=== PATIENT | female | born 1950 | race Caucasian/White ===

== ENCOUNTER 2018-04-23 15:35 | Inpatient (IN) | payer MEDICARE, OTHER ==
[~2018-04-23] VITALS: Ht 172.7 cm; Wt 108.0 kg
[2018-04-23 16:28] LABS: BASOPHILS 0.4 % (0-2); EOSINOPHILS 4.1 % (0-7); HEMATOCRIT 35.8 % (36.0-48.0); HEMOGLOBIN 11.7 g/dL (12-16); IMMATURE GRANULOCYTES 0.3 % (0-5); LYMPHOCYTES 19.1 % (15-50); MCH 29.6 pg (26.0-34.0); MCHC 32.7 g/dL (31.0-37.0); MCV 90.6 fL (80.0-100.0); MONOCYTES 16.4 % (2-11); NEUTROPHILS 59.7 % (40-80); PLATELET COUNT 188 10x3/uL (130-400); RBC 3.95 10x6/uL (4.00-5.40); RDW 18.3 % (11.5-14.5); WBC 7.6 10x3/uL (4.8-10.8)
[2018-04-23 16:37] LABS: APTT 24.3 SECONDS (22.8-39.4); INR 1.29 (0.85-1.17); PROTIME 15.5 SECONDS (11.6-15.0)
[2018-04-23 17:22] LABS: ALBUMIN 2.3 g/dL (3.4-5.0); ALKALINE PHOSPHATASE 178 U/L (46-116); ALT (SGPT) 288 U/L (10-68); BILIRUBIN - TOTAL 0.87 mg/dL (0.2-1.3); CALC OSMOLALITY 289 mosm/kg (275-300); CARBON DIOXIDE 20.9 mmol/L (21.0-32.0); CHLORIDE - SERUM 96 mmol/L (98-107); CKMB 1.2 U/L (0.0-3.6); GLUCOSE 237 mg/dL (74-106); POTASSIUM - SERUM 4.9 mmol/L (3.5-5.1); PROTEIN - SERUM 5.6 g/dL (6.4-8.2); SODIUM 129 mmol/L (136-145); TROPONIN-I 0.052 ng/mL (0.000-0.060); UREA NITROGEN 78 mg/dL (7-18)
[2018-04-23 17:52] LABS: CREATINE KINASE 45 UL (21-215); CREATININE - SERUM 5.1 mg/dL (0.6-1.3); eGFR NON AFRICAN AMERICAN 9 mL/min (90-120)
--- NOTE | 2018-04-23 18:01 | NUR ---
PT STATES MAKES LITTLE TO NO URINE ET IS UNABLE TO PROVIDE A URINE SAMPLE AT THIS TIME.
[2018-04-23 18:23] LABS: PRO BNP 43014 pg/mL (0-125)
[2018-04-23] MEDS ORDERED: TYLENOL W/CODEI1 TAB PO (18:51)
[2018-04-23] MEDS ORDERED: LOW DOSE ASPIRI81 M1 PO (18:51)
[2018-04-23] MEDS ORDERED: CITRACAL + D E1 EACH PO (18:52)
[2018-04-23] MEDS ORDERED: TENORMIN25 MG PO (18:52)
[2018-04-23] MEDS ORDERED: CATAPRES0.2 MG PO (18:52)
[2018-04-23] MEDS ORDERED: LEVOXYL200 MCG PO (18:53)
[2018-04-23] MEDS ORDERED: FUROSEMIDE40 MG PO (18:53)
[2018-04-23] MEDS ORDERED: NORCO 10-325 TA1 TAB PO (18:53)
[2018-04-23] MEDS ORDERED: NITROQUICK0.4 MG SL (18:54)
[2018-04-23] MEDS ORDERED: PROZAC20 MG PO (18:54)
[2018-04-23] MEDS ORDERED: ATIVAN1 MG PO (18:54)
[2018-04-23] MEDS ORDERED: TOUJEO SOL300 UNIT/1 SC ×2 (18:55→21:56)
--- NOTE | 2018-04-23 19:30 | NUR ---
PLACED 16 FR MCCARTHY CATH. PT TOLERATED WELL. INSTANT RETURN OF 150CC URINE NAYELI IN COLOR WITH SEDIMENTS NOTED.
--- NOTE | 2018-04-23 19:38 | NUR ---
URINE SAMPLE SENT TO LAB AFTER MCCARTHY PLACED. NOTIFIED CHARGE NURSE THAT PT WAS JSUT TREATED WITH VRE IN URINE AT A [facility]. PRECAUTIONS IN PLACE.
[2018-04-23 19:48] LABS: APPEARANCE CLEAR (CLEAR); BILIRUBIN NEGATIVE (NEGATIVE); COLOR YELLOW (YELLOW); GLUCOSE NEGATIVE (NEGATIVE); KETONE NEGATIVE (NEGATIVE); NITRITE NEGATIVE (NEGATIVE); PROTEIN TRACE mg/dL (NEGATIVE); UROBILINOGEN NORMAL (NORMAL)
--- NOTE | 2018-04-23 21:00 | NUR ---
PT RESTING WITH FAMILY AT BEDSIDE. NO DISTRESS NOTED. DENIES PAIN OR NEEDS AT THIS TIME. BED LOW LOCKED POSITION, SIDE RAILS UP TIMES TWO, CALL LIGHT WITHIN REACH. NOTIFIED ELVIA GAMBINO ON MED II ABOUT F/C AND PT HAVING VRE IN URINE AND WAS TREATED AT [facility].
[2018-04-23] MEDS ORDERED: CALCIUM 600 +1 EAC3 PO (21:53)
[2018-04-23] MEDS ORDERED: VITAMIN D5000 UNIT PO (21:57)
[2018-04-23 23:26] VITALS: BP 108/70; BMI 44.5
[2018-04-24 00:03] VITALS: BP 108/70
[2018-04-24 04:17] VITALS: BP 101/65
[2018-04-24 06:26] LABS: BASOPHILS 0.4 % (0-2); HEMATOCRIT 35.1 % (36.0-48.0); HEMOGLOBIN 11.5 g/dL (12-16); LYMPHOCYTES 18.6 % (15-50); MCH 29.1 pg (26.0-34.0); MCHC 32.8 g/dL (31.0-37.0); MCV 88.9 fL (80.0-100.0); MONOCYTES 19.9 % (2-11); NEUTROPHILS 54.1 % (40-80); PLATELET COUNT 166 10x3/uL (130-400); RBC 3.95 10x6/uL (4.00-5.40); RDW 18.1 % (11.5-14.5); WBC 8.2 10x3/uL (4.8-10.8)
[2018-04-24 07:10] LABS: ALBUMIN 2.3 g/dL (3.4-5.0); ALKALINE PHOSPHATASE 172 U/L (46-116); ALT (SGPT) 261 U/L (10-68); CALC OSMOLALITY 299 mosm/kg (275-300); CALCIUM 8.1 mg/dL (8.5-10.1); CHLORIDE - SERUM 101 mmol/L (98-107); CKMB 1.1 U/L (0.0-3.6); CREATINE KINASE 38 UL (21-215); CREATININE - SERUM 5.1 mg/dL (0.6-1.3); GLUCOSE 209 mg/dL (74-106); POTASSIUM - SERUM 4.9 mmol/L (3.5-5.1); PROTEIN - SERUM 5.5 g/dL (6.4-8.2); SODIUM 135 mmol/L (136-145); UREA NITROGEN 81 mg/dL (7-18); eGFR NON AFRICAN AMERICAN 9 mL/min (90-120)
--- NOTE | 2018-04-24 07:40 | NUR ---
ASSESSMENT DONE. DENIES NEEDS.
[2018-04-24 08:25] VITALS: BP 109/67
[2018-04-24] MEDS ORDERED: SIMETHICON40 MG/0.6 PO (09:49)
[2018-04-24 10:42] VITALS: BMI 44.4
--- NOTE | 2018-04-24 11:04 | NUR ---
RESTING QUIETLY NAD NOTED
[2018-04-24 12:16] VITALS: Ht 172.7 cm; Wt 108.0 kg
[2018-04-24 12:41] VITALS: BP 103/71
[2018-04-24 14:15] LABS: % SATURATION 13 % (15-55); IRON 31 ug/dl (35-150); TOTAL IRON BIND CAPACITY 235 ug/dl (260-445); UNSAT IRON BIND CAPACITY 204 ug/dl (150-375)
--- NOTE | 2018-04-24 15:04 | NUR ---
RATIONALE FOR SCD'S EXPLAINED; REFUSED SCD'S
[2018-04-24 15:15] LABS: THYROID STIMULATING HORMONE 0.43 uIU/mL (0.36-3.74)
[2018-04-24 15:48] VITALS: BP 122/71
--- NOTE | 2018-04-24 18:05 | NUR ---
WITHOUT CHANGES OR DISTRESS NOTED AT THIS TIME.
[2018-04-24 21:41] VITALS: BP 96/54
[2018-04-25 01:23] VITALS: BP 105/60
[2018-04-25 05:44] VITALS: BP 99/52
--- NOTE | 2018-04-25 06:26 | NUR ---
REC'D CHGE. OF SHIFT IN BED EYES CLOSED RESP. DEEP AND EVEN.CONTACT ISOLATION REMAINS IN PROGRESS.WILL CONTINUE TO MONITOR FOR ANY CHGES AND FOLLOW CURRENT PLAN OF CARE.
--- NOTE | 2018-04-25 07:00 | NUR ---
MORNING ASSESSMENT COMPLETE. SEE ASSESSMENT FLOWSHEET FOR FURTHER DETAILS. PT LYING IN BED- AAO X2 TO PERSON AND TIME OF DAY. CONFUSED TO PLACE. L AC SL- C/D/I; PATENT. HEART: S1 AND S2 HEARD AT AORTIC, PULMONICS, ERBS, TRICUSPID, AND MITRAL SITES- REG RHYTHM. BILAT RADIAL AND PEDAL PULSES PALP AND STRONG. LUNGS: CTA IN ALL LUNG ODELL. ABD: BS ACTIVE X4. F/C IN PLACE. DENIES NEEDS A THIS TIME. CL IN REACH. SIDE RAILS UP X3 FOR PATIENT SAFETY
[2018-04-25 07:27] LABS: FOLATE (FOLIC ACID) - SERUM 10.1 ng/mL (>3.0)
[2018-04-25 08:37] VITALS: BP 112/53
[2018-04-25 09:24] LABS: BASOPHILS 0.2 % (0-2); HEMATOCRIT 36.5 % (36.0-48.0); HEMOGLOBIN 12.2 g/dL (12-16); IMMATURE GRANULOCYTES 0.2 % (0-5); LYMPHOCYTES 16.2 % (15-50); MCH 29.3 pg (26.0-34.0); MCHC 33.4 g/dL (31.0-37.0); MCV 87.5 fL (80.0-100.0); MONOCYTES 16.7 % (2-11); NEUTROPHILS 64.7 % (40-80); PLATELET COUNT 169 10x3/uL (130-400); RBC 4.17 10x6/uL (4.00-5.40); RDW 18.1 % (11.5-14.5); WBC 9.6 10x3/uL (4.8-10.8)
[2018-04-25 09:45] LABS: ALBUMIN 2.3 g/dL (3.4-5.0); ANION GAP 16.9 mmol/L (8-16); BILIRUBIN - TOTAL 1.17 mg/dL (0.2-1.3); CALCIUM 8.1 mg/dL (8.5-10.1); CARBON DIOXIDE 23.6 mmol/L (21.0-32.0); CREATININE - SERUM 4.7 mg/dL (0.6-1.3); POTASSIUM - SERUM 4.5 mmol/L (3.5-5.1); PROTEIN - SERUM 5.6 g/dL (6.4-8.2)
[2018-04-25 11:54] VITALS: BP 176/66
[2018-04-25 16:43] VITALS: BP 103/69
--- NOTE | 2018-04-25 18:52 | NUR ---
PIV INFILTRATED. RESITED TO L AC- C/D/I; PATENT. FLUSHES WELL. PT TOLERATED WELL.
[2018-04-25 20:00] VITALS: BP 126/74
--- NOTE | 2018-04-25 20:00 | NUR ---
PT IN BED, MCCARTHY DRAINING YELLOW URINE. CONFUSED AND DISORIENTED. PT STATES "CAN I HAVE MY PAIN PILL?". BACK TO ROOM TO ADMINISTER PRESCRIBED ANALGESIC AND PT STATES SHE WILL TAKE IT LATER AND NOT NOW. RETURNED NARCOTIC TO PYXIS. WILL FOLLOW UP FOR PAIN, PT DENIES ANY NEEDS AT THE MOMENT. SR UP X2, CL IN REACH. WILL CONTINUE POC.
[2018-04-26] VITALS: BP 117/67
[2018-04-26 04:00] VITALS: BP 113/70
[2018-04-26 07:00] VITALS: BP 146/69
--- NOTE | 2018-04-26 07:52 | NUR ---
PT ASLEEP, DID NOT WAKE I ENTERED. DID NOT DISTURB AT THIS TIME. CL IN REACH.
[2018-04-26 08:30] LABS: BASOPHILS 0.1 % (0-2); EOSINOPHILS 0.6 % (0-7); HEMATOCRIT 35.8 % (36.0-48.0); IMMATURE GRANULOCYTES 0.1 % (0-5); LYMPHOCYTES 9.9 % (15-50); MCH 29.6 pg (26.0-34.0); MCHC 33.5 g/dL (31.0-37.0); MCV 88.4 fL (80.0-100.0); MONOCYTES 13.2 % (2-11); NEUTROPHILS 76.1 % (40-80); PLATELET COUNT 197 10x3/uL (130-400); RBC 4.05 10x6/uL (4.00-5.40); RDW 18.5 % (11.5-14.5); WBC 11.4 10x3/uL (4.8-10.8)
[2018-04-26 08:50] LABS: ALBUMIN 2.1 g/dL (3.4-5.0); ANION GAP 16.6 mmol/L (8-16); BILIRUBIN - TOTAL 1.32 mg/dL (0.2-1.3); CALCIUM 8.3 mg/dL (8.5-10.1); CARBON DIOXIDE 23.3 mmol/L (21.0-32.0); CREATININE - SERUM 4.3 mg/dL (0.6-1.3); POTASSIUM - SERUM 3.9 mmol/L (3.5-5.1); PROTEIN - SERUM 5.8 g/dL (6.4-8.2)
--- NOTE | 2018-04-26 10:31 | NUR ---
RESTS IN ISOLATION ROOM. CALL LIGHT IN REACH. WILL MONITOR NEEDS.
--- NOTE | 2018-04-26 10:46 | NUR ---
PT RUNNING 130 VTACH. NOT DIAPHERETIC. REPORTS FEELING DIZZY. HAS PACEMAKER. OBTAINING VITALS NOW.
--- NOTE | 2018-04-26 10:57 | NUR ---
DR. ALVA CONTACTED. STATES HE BELIEVES IT PACEMAKER INDUCED TACHYCARDIA BUT THAT HE WILL COME AND CHECK IT OUT. PT HAS NO SIGNIFICANT CHANGES IN CONDITION
[2018-04-26 11:00] VITALS: BP 90/60
[2018-04-26 15:00] VITALS: BP 140/82
--- NOTE | 2018-04-26 20:17 | NUR ---
INITIAL ROUNDS COMPLETED AT 191 HRS. PT RESTING WITH EYES CLOSED. RESP EVEN AND REGULAR. ASSESSMENT COMPLETED AT [address] WITH 1ST DEGREE AV BLOCK HR 10. IV TO LAC SL. LUNGS DIMINISHED IN BASES BILAT. LARGE FADING BRUISE NOTED TO L HIP. BRUISES NOTED TO BILAT ARMS. MCCARTHY DRAINING YELLOW URINE. 2+ PEDAL EDEMA NOTED. PTON CONTACT ISOLATION FOR VRE IN URINE. WILL CONTINUE TO MONITOR. SR UP X2, CALL LIGHT WITHIN REACH.
[2018-04-26 20:25] VITALS: BP 118/81
--- NOTE | 2018-04-26 23:00 | NUR ---
PM FSBS 162. NO INSULIN GIVEN PT NOT EATING. PT CURRENTLY RESTING WITH EYES CLOSED. RESP EVEN AND REGULAR. SR UP X2, CALL LIGHT WITHIN REACH.
--- NOTE | 2018-04-27 00:09 | NUR ---
PT RESTING WITH EYES CLOSED. RESP EVEN AND REGULAR. SR UP X2, CALL LIGHT WITHIN REACH.
[2018-04-27 00:30] VITALS: BP 119/73
--- NOTE | 2018-04-27 01:59 | NUR ---
PT AWAKE; DENIES ANY DISCOMFORT. WILL CONTINUE TO MONITOR.
--- NOTE | 2018-04-27 04:19 | NUR ---
ICE WTER GIVEN PER REQUEST. CALL LIGHT WITHIN REACH.
[2018-04-27 04:45] VITALS: BP 126/77
--- NOTE | 2018-04-27 06:29 | NUR ---
VSS THROUGHOUT NIGHT. ST/PACED PER CM HR IN LOW 100'S. AM FSBS 192. 4 UNITS REG INSULIN GIVEN SUB-Q TO UPPER L ARM PER S/S. 240CC OF APPLE JUICE ALSO GIVEN. NEEDS MET; WILL CONTINUE TO MONITOR.
[2018-04-27 07:30] LABS: BASOPHILS 0.2 % (0-2); EOSINOPHILS 0.7 % (0-7); HEMATOCRIT 38.5 % (36.0-48.0); HEMOGLOBIN 12.8 g/dL (12-16); IMMATURE GRANULOCYTES 0.2 % (0-5); LYMPHOCYTES 13.1 % (15-50); MCH 29.5 pg (26.0-34.0); MCHC 33.2 g/dL (31.0-37.0); MCV 88.7 fL (80.0-100.0); MONOCYTES 15.1 % (2-11); NEUTROPHILS 70.7 % (40-80); RBC 4.34 10x6/uL (4.00-5.40); RDW 18.4 % (11.5-14.5); WBC 12.5 10x3/uL (4.8-10.8)
[2018-04-27 07:33] LABS: PLATELET COUNT 246 10x3/uL (130-400)
--- NOTE | 2018-04-27 07:38 | NUR ---
PT AWAKE, HAS BEEN CALLING TO THE PACKING MACHINE CAN FEEDER FOR HELP INSTEAD OF USING HER CL INSTRUCTED. WENT IN AND HELPED ADJUST HER. NO OTHER C/O OR CONCERNS, BUT STATES SHE DOESN'T PLAN ON EATING BREAKFAST. PT DID NOT EAT AT ALL YESTERDAY EITHER, TRIED TO ENCOURAGE HER TO EAT. WILL CHECK IN AGAIN AT BREAKFAST/MEDICATION TIME AND TRY TO ENCOURAGE AGAIN.
[2018-04-27 07:52] LABS: ALBUMIN 2.2 g/dL (3.4-5.0); ANION GAP 20.6 mmol/L (8-16); BILIRUBIN - TOTAL 1.66 mg/dL (0.2-1.3); CALCIUM 8.4 mg/dL (8.5-10.1); CARBON DIOXIDE 19.8 mmol/L (21.0-32.0); CREATININE - SERUM 4.2 mg/dL (0.6-1.3); POTASSIUM - SERUM 4.4 mmol/L (3.5-5.1); PROTEIN - SERUM 6.2 g/dL (6.4-8.2)
[2018-04-27 08:25] VITALS: BP 140/88
[2018-04-27 11:32] VITALS: BP 143/76
--- NOTE | 2018-04-27 11:34 | NUR ---
RESTS IN ISOLATION ROOM. CALL LIGHT IN REACH. WILL MONITOR NEEDS.
--- NOTE | 2018-04-27 12:54 | NUR ---
PT NPO AFTER MIDNIGHT FOR GALLBLADDER SCAN
--- NOTE | 2018-04-27 12:57 | NUR ---
PT DOES NOTHAVE GALLBLADDER
[2018-04-27 13:40] LABS: AMYLASE - SERUM 24 U/L (25-115); LIPASE 166 U/L (73-393)
[2018-04-27 15:54] VITALS: BP 122/20
[2018-04-27 21:20] VITALS: BP 109/67
--- NOTE | 2018-04-27 23:57 | NUR ---
INITIAL ROUNDS COMPLETED AT 1910HRS. PT STATED SHE HAD SLIGHT SOB. PT REPOSITIONED IN BED. PT THEN STATED SHE COULD BREATHE BETTER. ASSESSMENT COMPELTD AT 2039 HRS. FAMILY AT BEDSIDE. O2 SAT 93%. O2 2LNC PLACED PER PT REQUEST. LUNGS DIMINISHED IN BASES BILAT. SCATTERED RHONCHI NOTED TO UPPER LOBES WHICH CLEARED WITH COUGH. BRUISES TO BILAT ARMS AND L HIP. SMALL SORE NOTED TO TOP OF R FOOT. MCCARTHY DRAINING YELLOW URINE. EXPLAINED TO PT AND FAMILY SHE DID NOT MEET CRITERIA FOR MCCARTHY. BOTH PT AND FAMILY REFUSED TO HAVE MCCARTHY REMOVED. PM FSBS 260. 10 UNITS REG INSULIN GIVEN SUB-Q TO UPPER R ARM. PM SNACK SERVED. PT CURRENTLY RESTING WITH EYES CLOSED. RESP EVEN AND REGULAR. SR UP X2,CALL LIGHT WITHIN REACH.
[2018-04-28 00:57] VITALS: BP 118/72
--- NOTE | 2018-04-28 01:51 | NUR ---
PT AWAKE, DENIES ANY PAIN OR NEEDS. CALL LIGHT WITHIN REACH.
--- NOTE | 2018-04-28 04:47 | NUR ---
PT INCONTINETNOF STOOL. INCONTINETN CARE DONE. REDDENED AEA NOTED TO COCCYX AREA APPROX 4CM X1 CM. REPOSITIONED IN BED FOR COMFORT. CALL LIGHT WITHIN REACH.
[2018-04-28 05:53] VITALS: BP 142/76
[2018-04-28 06:16] LABS: ALBUMIN 2.1 g/dL (3.4-5.0); ANION GAP 16.5 mmol/L (8-16); BILIRUBIN - TOTAL 1.33 mg/dL (0.2-1.3); CALCIUM 8.3 mg/dL (8.5-10.1); CARBON DIOXIDE 24.4 mmol/L (21.0-32.0); CREATININE - SERUM 4.1 mg/dL (0.6-1.3); POTASSIUM - SERUM 3.9 mmol/L (3.5-5.1)
[2018-04-28 07:18] LABS: BASOPHILS 0.2 % (0-2); EOSINOPHILS 3.6 % (0-7); HEMATOCRIT 37.5 % (36.0-48.0); HEMOGLOBIN 12.6 g/dL (12-16); IMMATURE GRANULOCYTES 0.2 % (0-5); LYMPHOCYTES 15.9 % (15-50); MCH 28.8 pg (26.0-34.0); MCHC 33.6 g/dL (31.0-37.0); MONOCYTES 16.2 % (2-11); NEUTROPHILS 63.9 % (40-80); PLATELET COUNT 213 10x3/uL (130-400); RBC 4.38 10x6/uL (4.00-5.40); RDW 18.2 % (11.5-14.5); WBC 11.6 10x3/uL (4.8-10.8)
--- NOTE | 2018-04-28 07:30 | NUR ---
VSS THROUGHOUT NIGHT. ST/PACED PER CM. PT DENIED ANY DISCOMFORT. NEEDS MET; WILL CONTINUE TO MONITOR.
[2018-04-28 07:32] LABS: MCV 85.6 fL (80.0-100.0)
--- NOTE | 2018-04-28 07:39 | NUR ---
REPORT RECEIVED. WILL CONTINUE WITH POC. PT CURRENTLY LYING SEMI FOWLERS. CALL LIGHT W/I REACH. PT WAS RESTING UPON ENTERING THE ROOM. PT IS AAO AND BEDFAST. RR EVEN AND UNLABORED ON 2L 02. L.AC PIV IS SALINE LOCKED. PT DENIES ANY NEEDS AT THIS TIME. WILL CTM.
[2018-04-28 09:20] VITALS: BP 110/80
--- NOTE | 2018-04-28 11:26 | NUR ---
RESTING QUIETLY NAD NOTED
--- NOTE | 2018-04-28 18:23 | NUR ---
CALLED PHARMACY TO NOTIFY THE NEED OF BUMEX DRIP. WILL CALL GROOMING ASSISTANT.
--- NOTE | 2018-04-28 18:57 | NUR ---
STILL HAVE NOT RECEIVED BUMEX DRIP. CALLED PHARMACY AGAIN @1900 TO NOTIFY. WILL CTM.
--- NOTE | 2018-04-28 19:30 | NUR ---
RECEIVED REPORT, WILL ASSUME CARE OF PT, DENIES ANY NEEDS AT THIS TIME, BED IS LOW, SRX2, CALL LIGHT IN [facility], WILL CONTINUE PLAN OF CARE
[2018-04-28 20:56] VITALS: BP 87/66
--- NOTE | 2018-04-28 21:50 | NUR ---
[id number] 8 UNITS OF HUMULIN, WILL CONTINUE PLAN OF CARE
--- NOTE | 2018-04-28 23:27 | NUR ---
BID ANALYST AT BEDSIDE TO OBTAIN VITALS, CALL LIGHT IN REACH. WILL CONTINUE WITH PLAN OF CARE.
[2018-04-29 02:02] VITALS: BP 120/69
--- NOTE | 2018-04-29 04:39 | NUR ---
PT HAD SMALL BM- LINEN CHANGE
[2018-04-29 06:09] VITALS: BP 140/67
--- NOTE | 2018-04-29 06:17 | NUR ---
[id number] COVERAGE NEEDED
[2018-04-29 06:42] LABS: BASOPHILS 0.3 % (0-2); EOSINOPHILS 4.3 % (0-7); HEMATOCRIT 36.9 % (36.0-48.0); HEMOGLOBIN 12.6 g/dL (12-16); IMMATURE GRANULOCYTES 0.2 % (0-5); LYMPHOCYTES 12.4 % (15-50); MCH 29.2 pg (26.0-34.0); MCHC 34.1 g/dL (31.0-37.0); MCV 85.4 fL (80.0-100.0); MONOCYTES 15.9 % (2-11); NEUTROPHILS 66.9 % (40-80); PLATELET COUNT 221 10x3/uL (130-400); RBC 4.32 10x6/uL (4.00-5.40); RDW 18.2 % (11.5-14.5); WBC 11.4 10x3/uL (4.8-10.8)
[2018-04-29 06:50] LABS: ANION GAP 16.1 mmol/L (8-16); BILIRUBIN - TOTAL 1.34 mg/dL (0.2-1.3); CALCIUM 8.1 mg/dL (8.5-10.1); CARBON DIOXIDE 25.8 mmol/L (21.0-32.0); CREATININE - SERUM 4.3 mg/dL (0.6-1.3); POTASSIUM - SERUM 3.9 mmol/L (3.5-5.1); PROTEIN - SERUM 5.7 g/dL (6.4-8.2)
--- NOTE | 2018-04-29 07:39 | NUR ---
REPORT RECEIVED. WILL CONTINUE WITH POC. PT CURRENTLY LYING SEMI FOWLERS. CALL LIGHT W/I REACH. RR EVEN AND UNLABORED ON 2L 02. PT IS AAO AND BEDFAST. BUMEX INFUSING @10ML/HR VIA L.AC PIV. PT DENIES ANY NEEDS AT THIS TIME. WILL CTM.
[2018-04-29 09:34] VITALS: BP 155/68
--- NOTE | 2018-04-29 10:20 | NUR ---
PREVIOUS PIV INFILTRATED. STOPPED INFUSION. STARTED NEW PIV IN THE RIGHT WRIST. 20GA X1 ATTEMPT. RESTARTED BUMEX DRIP. PT TOLERATED WELL. WILL CTM.
--- NOTE | 2018-04-29 10:47 | NUR ---
RESTING QUIETLY NAD NOTED
[2018-04-29 12:37] LABS: CREATININE - URINE 109.3 mg/dL (30-125); PROTEIN - URINE 52.4 mg/dL (0.0-11.9)
[2018-04-29 13:11] VITALS: BP 120/74
[2018-04-29 17:38] VITALS: BP 121/71
--- NOTE | 2018-04-29 18:19 | NUR ---
PT CURRENTLY GETTING A BEDBATH. CALL LIGHT W/I REACH. WILL APPLY NEW LINENS AND GOWN. BUMEX INFUSING @10ML/HR VIA R.WRIST PIV. RR EVEN AND UNLABORED ON . PT DENIES ANY NEEDS AT THIS TIME. WILL PASS REPORT AND CONTINUE WITH POC.
--- NOTE | 2018-04-29 19:05 | NUR ---
AROUSES TO VOICE. BED LOW AND CALL LIGHT IN REACH. VOICES UNDERSTANDING TO ALL QUESTIONS...ALERT AND ORIENTEDX3..SRX2 O2 AT 1 INCREASED TO ORDER OF 2LNC..SKIN WARM AND DRY LCTA PEDAL PULSES INTACT BOWEL SOUNDS X4..WILL CONTINUE TO OBSERVE CONTACT ISOLATION
[2018-04-29 20:40] VITALS: BP 100/57
--- NOTE | 2018-04-30 00:42 | NUR ---
BUMEX CONTINUED ...BED LOW SRX2 CALL LIGHT IN REACH..RESTING WITH EYES CLOSED
[2018-04-30 00:56] VITALS: BP 142/60
--- NOTE | 2018-04-30 02:52 | NUR ---
CO OF ABD PAIN...STATES PAIN IS CHRONIC TIMES SEVERAL DAYS..PRN GIVEN
--- NOTE | 2018-04-30 04:24 | NUR ---
STILL CO ABD PAIN WITH LITTLE RELIEF FROM HYDRO....SKIN WARM AND DRY
--- NOTE | 2018-04-30 04:34 | NUR ---
PT ASLEEP. NO S/S OF DISTRESS. BEDLOW AND CALL LIGHT IN REACH. WILL CPOC
[2018-04-30 06:09] VITALS: BP 118/60
--- NOTE | 2018-04-30 07:30 | NUR ---
REPORT RECEIVED. WILL CONTINUE WITH POC. PT CURRENTLY LYING SEMI FOWLERS. CALL LIGHT W/I REACH. PT IS RESTING AT THE MOMENT. RR EVEN AND UNLABORED ON 2.5L 02. BUMEX INFUSING @10ML/HR VIA R.WRIST PIV. PT DENIES ANY NEEDS. WILL CTM.
[2018-04-30 07:40] LABS: HEMATOCRIT 35.7 % (36.0-48.0); HEMOGLOBIN 12.1 g/dL (12-16); MCH 29.8 pg (26.0-34.0); MCHC 33.9 g/dL (31.0-37.0); PLATELET COUNT 204 10x3/uL (130-400); RBC 4.06 10x6/uL (4.00-5.40); RDW 18.6 % (11.5-14.5); WBC 14.2 10x3/uL (4.8-10.8)
[2018-04-30 07:45] LABS: MCV 87.9 fL (80.0-100.0)
[2018-04-30 07:58] LABS: ALBUMIN 2.2 g/dL (3.4-5.0); BILIRUBIN - TOTAL 2.15 mg/dL (0.2-1.3); CALCIUM 7.9 mg/dL (8.5-10.1); CARBON DIOXIDE 24.4 mmol/L (21.0-32.0); CREATININE - SERUM 4.3 mg/dL (0.6-1.3); MAGNESIUM - SERUM 2.3 mg/dL (1.8-2.4); PROTEIN - SERUM 5.4 g/dL (6.4-8.2)
[2018-04-30 08:03] LABS: POTASSIUM - SERUM 4.4 mmol/L (3.5-5.1)
[2018-04-30 08:06] VITALS: BP 133/63
[2018-04-30 09:01] LABS: ANISOCYTOSIS OCC; EOSINOPHILS 1 % (0-7); LYMPHOCYTES 13 % (15-50); MONOCYTES 13 % (2-11); NEUTROPHILS 71 % (40-80); PLATELET ESTIMATE NORMAL; ROULEAUX OCC
--- NOTE | 2018-04-30 10:34 | NUR ---
RESTS IN ISOLATION ROOM. CALL LIGHT IN REACH. WILL MONITOR NEEDS.
[2018-04-30 11:22] VITALS: BP 146/72
--- NOTE | 2018-04-30 14:18 | NUR ---
Nutrition Follow Up: Pt was asleep and no family present at the time of RD visit. Interview deferred at this time. Diet: Renal ADA PO Intake: 32% meal avg - pt is not meeting est nutritional needs BM: 04/28/18 Labs reviewed Meds noted including Bumex Rec consider liberalizing diet to encourage po intake. Rec consider an appetite stimulant. Will continue to honor food preferences within diet ordered. RD following.
[2018-04-30 15:40] VITALS: BP 150/78
--- NOTE | 2018-04-30 17:44 | NUR ---
WITNESSED AND PT SIGNED DNR FORM. PLACED FORM IN CHART. INCREASED BUMEX DRIP TO 20ML/HR PER ORDER VIA R.WRIST PIV. RR LABORED ON EXERTION. PT DENIES ANY NEEDS. WILL CTM.
--- NOTE | 2018-04-30 18:23 | NUR ---
PT LYING SEMI FOWLERS. CALL LIGHT W/I REACH. MCCARTHY OUTPUT OF 600 DARK NAYELI URINE RECORDED. RR EVEN AND UNLABORED ON 2L 02. BUMEX INFUSING @20ML/HR VIA R.WRIST PIV. PT DENIES ANY NEEDS AT THIS TIME. WILL PASS REPORT AND CONTINUE WITH POC.
--- NOTE | 2018-04-30 18:42 | MORECARE ---
CASE MANAGEMENT DISCHARGE SUMMARY PATIENT: CANDACE HYDE UNIT: [id number] ADM DATE: 04/23/18 AGE: 68 : 49 SEX: F ROOM/BED: D.2137 AUTHOR: LIUDMILA MORGAN PHYSICIAN: REFERRING PHYSICIAN: VICTOR MANUEL REYNOSO MD DATE OF SERVICE: 04/30/18 Discharge Plan Patient Name: [facility]ANDACE HYDE [facility] [facility] 1950 Planned Disposition: Home Anticipated Discharge Date: 05/04/18 Discharge Date: Expected LOS: 11 Initial Reviewer: [email or web address] Initial Review Date: 04/30/2018 Generated: 04/30/18 7:42 pm DCPIA - Discharge Planning Initial Assessment Updated by [email or web address]: Stephie De Los Santos on 04/30/18 6:37 pm * Is the patient Alert and Oriented? Yes * How many steps to enter\exit or inside your home? * PCP DR. LOZADA * Pharmacy [facility] [address] * Preadmission Environment Home with Family * ADLs Partial Dependent * Partial ADLs (Assistance needed) Bathing Dressing Medication Management Toileting * Equipment Bedside Commode Glucometer Walker * List name and contact numbers for known caregivers / representatives who currently or will assist patient after discharge: ROMERO FITZGERALD (DAUGHTER) [phone] * Verbal permission to speak to the caregivers and representatives has been obtained from the patient. Yes * Community resources currently utilized None * Additional services required to return to the preadmission environment? Yes * Can the patient safely return to the preadmission environment? Yes * Has this patient been hospitalized within the prior 30 days at any hospital? Yes Patient Name: CANDACE HYDE Page [id number] at 1842 All edits/amendments must be made on the electronic document DICTATION DATE: 04/30/181841 SPEED RUNNER: BONNIE 04/30/181841 RPT#: [id number] DC DATE: STATUS: ADM IN [facility] [address] [place] [address] END OF REPORT
--- NOTE | 2018-04-30 18:50 | MORECARE ---
CASE MANAGEMENT DISCHARGE SUMMARY PATIENT: CANDACE HYDE UNIT: [id number] ADM DATE: 04/23/18 AGE: 68 : 49 SEX: F ROOM/BED: D.1650 AUTHOR: LIUDMILA MORGAN PHYSICIAN: REFERRING PHYSICIAN: VICTOR MANUEL REYNOSO MD DATE OF SERVICE: 04/30/18 Discharge Plan Patient Name: CANDACE HYDE Facility: [facility]:[place] : 1950 Planned Disposition: Home Anticipated Discharge Date: 05/04/18 Discharge Date: Expected LOS: 11 Initial Reviewer: [email or web address] Initial Review Date: 04/30/2018 Generated: 04/30/18 7:50 pm Comments DCP- Discharge Planning Updated by [email or web address]: Stephie De Los Santos on 04/30/18 5:[address] Patient Name: CANDACE HYDE Admission Status: ER Accout number: [id number] Admission Date: 04-23-2018 : 1950 Admission Diagnosis:ACUTE ON CHRONIC SYSTOLIC (CONGESTIVE) HEART FAILURE Attending: VICTOR MANUEL REYNOSO Current LOS: 7 Anticipated DC Date: 05-04-2018 Planned Disposition: Home Primary Insurance: MEDICARE A & B Discharge Planning Comments: CM MET WITH PATIENT AND DAUGHTER (ROMERO) REGARDING D/C NEEDS AND PLANS. PATIENTS DAUGHTER STATED SHE WILL GO HOME WITH HER OR GO TO A REHAB. PATIENT WANTS TO SPEAK WITH DR. BIGGS AGAIN BEFORE SHE DECIDES IF SHE WANTS DIALYSIS OR NOT. PATIENTS PCP IS DR. LOZADA AND HER PHARMACY IS [facility]. ZONIATENT STATED SHE HAS A GLUCOMETER, WALKER, BS COMMODE AT HOME. PATIENT CHOSE TO BE A DNR TODAY PER DR. PARRA NOTE. CM WILL CONTINUE TO FOLLOW PATIENT WITH D/C NEEDS AND PLANS. PCP DR. KIERRA [facility] [address] (PHARMACY) ROMERO (DAUGHTER) [phone] Project Buyer: Stephie De Los Santos DCPIA - Discharge Planning Initial Assessment Updated by [id number]: Stephie De Los Santos on 04/30/18 6:37 pm * Is the patient Alert and Oriented? Yes * How many steps to enter\exit or inside your home? * PCP DR. LOZADA * Pharmacy [facility] [address] * Preadmission Environment Home with Family * ADLs Partial Dependent * Partial ADLs (Assistance needed) Bathing Dressing Medication Management Toileting * Equipment Bedside Commode Glucometer Walker * List name and contact numbers for known caregivers / representatives who currently or will assist patient after discharge: ROMERO FITZGERALD (DAUGHTER) [phone] * Verbal permission to speak to the caregivers and representatives has been obtained from the patient. Yes * Community resources currently utilized None * Additional services required to return to the preadmission environment? Yes * Can the patient safely return to the preadmission environment? Yes * Has this patient been hospitalized within the prior 30 days at any hospital? Yes Last DP export: 04/30/18 5:42 pm Patient Name: CANDACE HYDE Page [phone] at 1850 All edits/amendments must be made on the electronic document DICTATION DATE: 04/30/181849 DISTRICT [employer] E[employer]OM[employer] AGENT: BONNIE 04/30/181849 RPT#: [id number] DC DATE: STATUS: ADM IN [facility] [address] [place] [address] END OF REPORT
--- NOTE | 2018-04-30 20:00 | NUR ---
RESTING IN BED EYES CLOSED, RESP SHALLOW O2 IN USE VIA N/C, IV WITH BUMEX DRIP AT 20 INFUSING, MCCARTHY CATH DRAINING YELLOW URINE, NO APPARENT DISTRESS CALL LIGHT IN REACH, GENERALIZED EDEMA NOTED
[2018-04-30 21:07] VITALS: BP 113/68
[2018-05-01 01:12] VITALS: BP 151/64
[2018-05-01 06:11] VITALS: BP 139/82
[2018-05-01 06:33] LABS: ALBUMIN 2.4 g/dL (3.4-5.0); ANION GAP 20.1 mmol/L (8-16); BILIRUBIN - TOTAL 2.4 mg/dL (0.2-1.3); CALCIUM 8.4 mg/dL (8.5-10.1); CARBON DIOXIDE 23.4 mmol/L (21.0-32.0); CREATININE - SERUM 4.5 mg/dL (0.6-1.3); MAGNESIUM - SERUM 2.4 mg/dL (1.8-2.4); POTASSIUM - SERUM 4.5 mmol/L (3.5-5.1); PROTEIN - SERUM 5.9 g/dL (6.4-8.2)
[2018-05-01 07:18] LABS: HEMATOCRIT 36.6 % (36.0-48.0); HEMOGLOBIN 12.1 g/dL (12-16); LYMPHOCYTES 9.1 % (15-50); MCHC 33.1 g/dL (31.0-37.0); MEAN PLATELET VOLUME 13.6 fL (7.4-10.4); NEUTROPHILS 78.7 % (40-80); PLATELET COUNT 183 10x3/uL (130-400); RBC 4.04 10x6/uL (4.00-5.40); RDW 20.9 % (11.5-14.5); WBC 13.8 10x3/uL (4.8-10.8)
[2018-05-01 07:22] LABS: MCV 90.6 fL (80.0-100.0)
--- NOTE | 2018-05-01 07:46 | NUR ---
PT ALERT X 4. BREATH SOUNDS CLEAR BILAT, 2L O2 PER NC, REPORTING CONTINUED SOB OVER LAST 3 DAYS. BOWEL SOUNDS HYPOACTIVE TO ALL ODELL, ABDOMEN TENDER. TELEMETRY IN PLACE. IV TO RIGHT WRIST, PATENT, DRESSING CLEAN DRY AND INTACT. MCCARTHY IN PLACE, URINE DARK YELLOW AND CLOUDY. UPPER AND LOWER EXTREMITIES +3 PITTING EDEMA. SKIN DRY ALL OVER. REPORTING PAIN OF 7/10, WILL MONITOR. BED LOW, CALL LIGHT IN REACH, NO OTHER NEEDS AT THIS TIME.
[2018-05-01 07:49] VITALS: BP 97/70
[2018-05-01 11:28] VITALS: BP 124/67
[2018-05-01 15:54] VITALS: BP 120/78
[2018-05-01 20:00] VITALS: BP 168/86
[2018-05-02] VITALS: BP 143/94
--- NOTE | 2018-05-02 00:56 | NUR ---
PT SLEEPING. LETHARGIC AND CONFUSED UPON WAKING. PT ASKED ME IF I WAS DOING ANY MORE SURGURIES ON HER. DENIES NEEDS AT THIS TIME. WILL CONTINUE POC.
[2018-05-02 04:00] VITALS: BP 148/77
[2018-05-02 07:52] VITALS: BP 151/78
[2018-05-02 10:13] LABS: ALBUMIN 2.6 g/dL (3.4-5.0); BILIRUBIN - TOTAL 2.61 mg/dL (0.2-1.3); CALCIUM 8.2 mg/dL (8.5-10.1); CARBON DIOXIDE 23.5 mmol/L (21.0-32.0); CREATININE - SERUM 4.6 mg/dL (0.6-1.3); MAGNESIUM - SERUM 2.3 mg/dL (1.8-2.4); POTASSIUM - SERUM 4.5 mmol/L (3.5-5.1); PROTEIN - SERUM 5.6 g/dL (6.4-8.2)
[2018-05-02 10:38] LABS: BASOPHILS 0.1 % (0-2); EOSINOPHILS 0.9 % (0-7); HEMATOCRIT 35.5 % (36.0-48.0); HEMOGLOBIN 11.9 g/dL (12-16); IMMATURE GRANULOCYTES 0.3 % (0-5); LYMPHOCYTES 6.5 % (15-50); MCH 29.3 pg (26.0-34.0); MCHC 33.5 g/dL (31.0-37.0); MONOCYTES 11.3 % (2-11); NEUTROPHILS 80.9 % (40-80); RBC 4.06 10x6/uL (4.00-5.40); RDW 18.9 % (11.5-14.5); WBC 15.1 10x3/uL (4.8-10.8)
[2018-05-02 10:39] LABS: MCV 87.4 fL (80.0-100.0); PLATELET COUNT 235 10x3/uL (130-400)
--- NOTE | 2018-05-02 10:59 | NUR ---
RESTS IN ISOLATION ROOM. RESP UL ON . CALL LIGHT IN REACH. WILL MONITOR NEEDS.
--- NOTE | 2018-05-02 13:56 | NUR ---
PT ON BUMEX DRIP AT 20CC PER HOUR. THE SAME DRIP PREOPERATIVE
[2018-05-02 20:00] VITALS: BP 141/72
[2018-05-03] VITALS: BP 147/77
--- NOTE | 2018-05-03 01:44 | NUR ---
PT WOKE UP ALERT BUT CONFUSED. PT BED LOW CALL LIGHT WITHIN REACH. WILL CONTINUE TO MONITOR.
--- NOTE | 2018-05-03 03:32 | NUR ---
RN NOTE: PATIENT RESTING COMFORTABLY IN BED. RESPIRATIONS ARE EVEN AND UNLABORED. NO S/S OF DISTRESS. NO C/O PAIN. WILL CPOC.
[2018-05-03 04:00] VITALS: BP 133/75
--- NOTE | 2018-05-03 07:30 | NUR ---
RECEIVED A/A/OX3. DISORIENTED TO TIME AND REORIENTED PT. DENIES ANY PAIN OR DISCOMFORT AT PRESENT TIME. HEMOSPLIT IN PLACE WITH DRESSING C/D/I. IV PATENT TO LAC WITHOUT REDNESS OR EDEMA AT SITE. MCCARTHY PATENT AND DRAINING YELLOW SLIGHTLY CLOUDY URINE. REMAINS IN CONTACT ISOLATION FOR VRE. DAUGHTER AT BEDSIDE. BED IN LOW POSITION WITH SIDERAILS UP X 2 AND CALL LIGHT IN REACH. ASSESSMENT COMPLETED.
[2018-05-03 08:11] LABS: BASOPHILS 0.2 % (0-2); EOSINOPHILS 1.1 % (0-7); HEMATOCRIT 34.5 % (36.0-48.0); HEMOGLOBIN 11.5 g/dL (12-16); IMMATURE GRANULOCYTES 0.2 % (0-5); LYMPHOCYTES 9.4 % (15-50); MCHC 33.3 g/dL (31.0-37.0); MCV 86.9 fL (80.0-100.0); MEAN PLATELET VOLUME 12.9 fL (7.4-10.4); MONOCYTES 12.7 % (2-11); NEUTROPHILS 76.4 % (40-80); PLATELET COUNT 274 10x3/uL (130-400); RBC 3.97 10x6/uL (4.00-5.40); RDW 19.2 % (11.5-14.5); WBC 16.8 10x3/uL (4.8-10.8)
[2018-05-03 08:33] VITALS: BP 149/80
[2018-05-03 09:02] LABS: ALBUMIN 2.9 g/dL (3.4-5.0); ANION GAP 20.5 mmol/L (8-16); BILIRUBIN - TOTAL 3.01 mg/dL (0.2-1.3); CALCIUM 8.6 mg/dL (8.5-10.1); CARBON DIOXIDE 22.8 mmol/L (21.0-32.0); CREATININE - SERUM 4.7 mg/dL (0.6-1.3); MAGNESIUM - SERUM 2.4 mg/dL (1.8-2.4); POTASSIUM - SERUM 4.3 mmol/L (3.5-5.1); PROTEIN - SERUM 6.2 g/dL (6.4-8.2)
[2018-05-03 11:57] VITALS: BP 130/89
--- NOTE | 2018-05-03 14:02 | NUR ---
PLANT TECHNICIAN/CONTROL ROOM OPERATOR NOTE: PT RESTING IN BED WITH EYES CLOSED. CHEST RISING AND FALLING. NO S/S OF ACUTE DISTRESS. CL IN PLACE.
[2018-05-03 16:23] VITALS: BP 188/92
--- NOTE | 2018-05-03 19:15 | NUR ---
PT RECIEVING HD IN ROOM.
[2018-05-03 21:33] VITALS: BP 172/81
[2018-05-04 02:08] VITALS: BP 167/94
--- NOTE | 2018-05-04 04:09 | NUR ---
PT RESTING IN BED WITH RESPS EVEN/NONLABORED. NO DISTRESS. MONITOR AND CPOC.
[2018-05-04 04:54] VITALS: BP 159/87
[2018-05-04 06:13] LABS: BASOPHILS 0.3 % (0-2); EOSINOPHILS 2.4 % (0-7); HEMATOCRIT 34.6 % (36.0-48.0); HEMOGLOBIN 11.4 g/dL (12-16); IMMATURE GRANULOCYTES 0.2 % (0-5); LYMPHOCYTES 10.4 % (15-50); MCH 28.7 pg (26.0-34.0); MCHC 32.9 g/dL (31.0-37.0); MCV 87.2 fL (80.0-100.0); MEAN PLATELET VOLUME 12.6 fL (7.4-10.4); MONOCYTES 10.5 % (2-11); NEUTROPHILS 76.2 % (40-80); PLATELET COUNT 231 10x3/uL (130-400); RBC 3.97 10x6/uL (4.00-5.40); RDW 19.3 % (11.5-14.5); WBC 13.9 10x3/uL (4.8-10.8)
[2018-05-04 06:24] LABS: ALBUMIN 3.2 g/dL (3.4-5.0); ANION GAP 20.2 mmol/L (8-16); BILIRUBIN - TOTAL 3.6 mg/dL (0.2-1.3); CALCIUM 8.9 mg/dL (8.5-10.1); CARBON DIOXIDE 23.8 mmol/L (21.0-32.0); CREATININE - SERUM 3.8 mg/dL (0.6-1.3); MAGNESIUM - SERUM 2.3 mg/dL (1.8-2.4); PROTEIN - SERUM 6.2 g/dL (6.4-8.2)
--- NOTE | 2018-05-04 07:30 | NUR ---
RECEIVED A/A/OX4. STATES SHE IS FEELING MUCH BETTER TODAY. NO REQUESTS VOICED. DRESSING TO HEMOSPLIT LEFT CHEST C/D/I. SALINE LOCK PATENT TO LEFT AC WITHOUT REDNESS OR EDEMA. MCCARTHY PATENT AND DRAINING LIGHT NAYELI COLORED SLIGHTLY CLOUDY URINE. BED IN LOW POSITION, SIDERAILS UP X 2 AND CALL LIGHT IN REACH. REMAINS IN CONTACT ISOLATION FOR VRE URINE. ASSESSMENT COMPLETED.
[2018-05-04 08:32] VITALS: BP 128/83
--- NOTE | 2018-05-04 12:04 | NUR ---
RN ROUNDING, PATIENT IS IN CONTACT ISOLATION FOR VRE URINE. FAMILY MEMBER IN ROOM AT THIS TIME WITH NO PPE ON. INSTRUCTED IN WEARING GOWN AND GLOVES. ON 2L PER NC. BILATERAL SCD'S ARE ON AND IN USE. ON HEART MONITOR SHOWING PACED, HR 117.
[2018-05-04 12:21] VITALS: BP 141/82
[2018-05-04 16:31] VITALS: BP 153/79
--- NOTE | 2018-05-04 19:22 | NUR ---
REPORT RECEIVED. PT SITTING UP IN BED WITH EYES OPEN, RR EVEN AND UNLABORED. DAUGHTER AT BEDSIDE. BED IN LOW POSITION. SIDE RAILS UP X2. NO S/S OF DISTRESS. CALL LIGHT IN REACH. WILL CTM.
[2018-05-04 21:00] VITALS: BP 126/72
--- NOTE | 2018-05-05 00:24 | NUR ---
ADMINISTERED ORDERED ANALGESIC FOR COMPLAINTS OF PAIN IN BACK, PT STATES PAIN OF A 6 ON A SCALE OF 0-10.
--- NOTE | 2018-05-05 01:19 | NUR ---
PT RESTING IN BED WITH EYES CLOSED, NO S/S OF PAIN AT THIS TIME. RR EVEN AND UNLABORED. OXYGEN AT 2 LITERS BY NASAL CANNULA. BED IN LOW POSITION. SIDE RAILS UP X2. CALL LIGHT IN REACH. WILL CTM.
[2018-05-05 03:05] VITALS: BP 117/67
--- NOTE | 2018-05-05 03:41 | NUR ---
PT SITTING UP IN BED WITH EYES CLOSED, RR EVEN AND UNLABORED. OXYGEN AT 2 LITERS BY NASAL CANNULA. BED IN LOW POSITION. SIDE RAILS UP X2. CALL LIGHT IN REACH. WILL CTM.
--- NOTE | 2018-05-05 04:04 | NUR ---
PT RESTING IN BED WITH NO DISTRESS. RESPS NONLABORED. MONITOR AND CPOC. CALL LIGHT IN REACH.
[2018-05-05 05:55] VITALS: BP 145/77
--- NOTE | 2018-05-05 08:03 | NUR ---
PATIENT IS ALERT/ORIENT. CONTINUES IN CONTACT ISOLATION FOR VRE IN URINE. CALL LIGHT WITHIN REACH. VOICES NO NEEDS AT THIS TIME. WILL CONTINUE WITH PLAN OF CARE
[2018-05-05 08:49] VITALS: BP 142/76
--- NOTE | 2018-05-05 10:05 | NUR ---
RESTS IN ISOLATION ROOM. RESP UL ON . DAVI NEEDS AT THIS TIME.
[2018-05-05 10:14] LABS: BASOPHILS 0.2 % (0-2); EOSINOPHILS 1.5 % (0-7); HEMOGLOBIN 11.2 g/dL (12-16); IMMATURE GRANULOCYTES 0.3 % (0-5); LYMPHOCYTES 8.2 % (15-50); MCH 28.8 pg (26.0-34.0); MCHC 32.9 g/dL (31.0-37.0); MCV 87.4 fL (80.0-100.0); MEAN PLATELET VOLUME 12.9 fL (7.4-10.4); NEUTROPHILS 79.8 % (40-80); PLATELET COUNT 203 10x3/uL (130-400); RBC 3.89 10x6/uL (4.00-5.40); RDW 19.4 % (11.5-14.5); WBC 14.4 10x3/uL (4.8-10.8)
[2018-05-05 10:53] LABS: ALBUMIN 3.3 g/dL (3.4-5.0); ANION GAP 17.9 mmol/L (8-16); BILIRUBIN - TOTAL 3.89 mg/dL (0.2-1.3); CALCIUM 9.3 mg/dL (8.5-10.1); CARBON DIOXIDE 23.9 mmol/L (21.0-32.0); CREATININE - SERUM 4.2 mg/dL (0.6-1.3); POTASSIUM - SERUM 3.8 mmol/L (3.5-5.1); PROTEIN - SERUM 6.3 g/dL (6.4-8.2)
--- NOTE | 2018-05-05 12:00 | NUR ---
GLUCOSE LEVEL 186. FOUR UNITS OF SLIDING SCALE INSULIN GIVEN
[2018-05-05 13:23] VITALS: BP 139/87
--- NOTE | 2018-05-05 13:29 | NUR ---
PATIENT IS IN CONTACT ISOLATION. RANGE MASTER IN ROOM. STARTING DIALYSIS TREATMENT. SINK IN ROOM CLOGGED UP. WORK ORDER PUT IN COMPUTER. MAINTANCE CALLED.
--- NOTE | 2018-05-05 15:18 | NUR ---
SWIMMING COACH OR INSTRUCTOR STATED THAT THEY WERE UNABLE TO DRAW FROM THIS PATIENT TODAY. STATED THAT THEY WILL DO DIALYSIS TOMORROW. POSSIBLE WED, AND SAT.
--- NOTE | 2018-05-05 16:31 | NUR ---
FAMILY IN ROOM WITH PATIENT. GLUCOSE LEVEL 198. FOUR UNITS OF SLIDING SCALE INSULIN GIVEN
[2018-05-05 19:55] VITALS: BP 122/58
--- NOTE | 2018-05-05 20:08 | NUR ---
RECIEVED BEDSIDE REPORT. PT AO X3, VSS, PACED. SHALLOW BREATHING. PT STATES SCD IS TOO TIGHT ON HER SKIN AND THAT SHE HAVE A DELICATE SKIN. ASSESED PT LEG, IDENTIFIED FEW REDDENED AREA IN LEFT AND RIGHT LOWER LEG. IV ALBUMIN GIVEN. PT STATES SHE HAS BEEN COUGHING ALL DAY AND THAT SHE IS WEAK FROM THE COUGH. AM MEDS ALOGNSIDE MUCINEX WAS GIVEN. WILL CTM. CL IN REACH, BED IN LOW.
[2018-05-05 23:55] VITALS: BP 130/61
[2018-05-06 03:55] VITALS: BP 117/61
[2018-05-06 05:52] LABS: BASOPHILS 0.2 % (0-2); EOSINOPHILS 2.4 % (0-7); HEMATOCRIT 32.3 % (36.0-48.0); HEMOGLOBIN 10.6 g/dL (12-16); IMMATURE GRANULOCYTES 0.4 % (0-5); MCH 28.5 pg (26.0-34.0); MCHC 32.8 g/dL (31.0-37.0); MCV 86.8 fL (80.0-100.0); MEAN PLATELET VOLUME 12.6 fL (7.4-10.4); PLATELET COUNT 230 10x3/uL (130-400); RBC 3.72 10x6/uL (4.00-5.40); RDW 19.9 % (11.5-14.5); WBC 13.1 10x3/uL (4.8-10.8)
[2018-05-06 06:15] LABS: LYMPHOCYTES 6 % (15-50); MONOCYTES 4 % (2-11); NEUTROPHILS 88 % (40-80)
[2018-05-06 06:21] LABS: ALBUMIN 3.4 g/dL (3.4-5.0); ANION GAP 16.4 mmol/L (8-16); BILIRUBIN - TOTAL 3.74 mg/dL (0.2-1.3); CARBON DIOXIDE 25.5 mmol/L (21.0-32.0); CREATININE - SERUM 4.2 mg/dL (0.6-1.3); POTASSIUM - SERUM 3.9 mmol/L (3.5-5.1); PROTEIN - SERUM 6.3 g/dL (6.4-8.2)
[2018-05-06 08:39] VITALS: BP 146/74
--- NOTE | 2018-05-06 08:54 | NUR ---
ALERT AND ORIENTED. FAMILY AT BS. ATE SMALL AMT BREAKFAST. NO C/O PAIN. NO DISTRESS NOTED.
--- NOTE | 2018-05-06 11:56 | OP ---
PATIENT NAME: CANDACE HYDE MEDICAL RECORD: [id number] :[birth year] LOCATION:D.M2 D.2137 ADMISSION DATE:04/23/18 SURGEON: BRENT RIVERA MD DATE OF OPERATION: 05/02/2018 PREOPERATIVE DIAGNOSES: 1. Yutjq-us-vwlftau kidney disease. 2. Diabetes mellitus. 3. Coronary artery disease. 4. Hypertension. 5. Hyperlipidemia. 6. Congestive heart failure, undifferentiated. POSTOPERATIVE DIAGNOSES: 1. Ptbim-ln-epbunpx kidney disease. 2. Diabetes mellitus. 3. Coronary artery disease. 4. Hypertension. 5. Hyperlipidemia. 6. Congestive heart failure, undifferentiated. PROCEDURE: 1. Left IJ 23-cm HemoSplit catheter placement. 2. Fluoroscopic interpretation. SURGEON: Brent Rivera MD REPORT OF OPERATION: The patient's left neck and chest were prepped and draped in sterile fashion. Using ultrasound guidance, a needle was used to cannulate the left internal jugular vein and a guidewire was advanced with ease. Fluoro was used to note that the wire was in good position in the venous system. A skin incision was made on the left superior lateral chest and the catheter was tunneled between this incision and the wire exit site. Multiple dilators were placed over the wire under fluoroscopic guidance. At this point, the dilator trocar device was placed over the wire and the wire and dilator were removed. The catheter tip was advanced through the trocar and the trocar was removed. The catheter tip was pulled back until it rested in good position at the right atrial superior vena caval junction. We inspected the pacemaker leads and they appeared to be in good position. The catheter was then sutured into place with 3-0 nylons and the skin incisions were closed with subcutaneous 5-0 Monocryl. COMPLICATIONS: None. CONDITION: Stable. ANESTHESIA: General endotracheal. BLOOD LOSS: 30 mL. TRANSINT:[id number] Voice Confirmation ID: [id number] DOCUMENT ID: [id number] OPERATIVE REPORT [id number] BARRETTNICKBRENT MEYER MD at 1156 CC: [id number] DICTATION DATE: 05/02/18 1333 BOND MANAGER: 05/02/18 2106 ADM IN [place] [id number] [place] [address]
--- NOTE | 2018-05-06 13:26 | NUR ---
GETTING DIALYSIS IN ROOM AT THIS TIME.
--- NOTE | 2018-05-06 13:26 | NUR ---
NO CHANGE IN ASSESSMENT.
--- NOTE | 2018-05-06 13:29 | EC ---
PATIENT:CANDACE HYDE DATE OF SERVICE: 04/23/18 SEX: F MEDICAL RECORD: [id number] DATE OF : [birth year] LOCATION:D.M2 D.213 AGE OF PATIENT: 68 ADMISSION DATE: 04/23/18 REFERRING PHYSICIAN: INTERPRETING PHYSICIAN: CINDY FAN MD ECHOCARDIOGRAM REPORT ECHO CHARGES 5 ECHO LIMITED Date: 04/24/18 CLINICAL DIAGNOSIS: CHF HX OF CHF/PACER ECHOCARDIOGRAPHIC MEASUREMENTS (adult normal given) AC root (d.<3.7cm) 3.5 cm LV Septum d (<1.2 cm> 1.5 cm Valve Excursion 1.7 cm LV Septum (systole) 1.8 cm Left Atria (s.<4.0cm> 5.1 cm LVPW d(<1.2cm) 1.5 cm RV (d.<2.3cm) 4.4 cm LVPW (sytole) 1.7 cm LV diastole(<5.6CM) 4.6 cm MV E-F(>70mm/sec) cm LV systole 4.0 cm LVOT Diameter 1.9 cm MV exc.(>10mm) 1.5 cm Est.ejection fraction (50-75%) % DOPPLER: LVIT cm/sec A cm/sec E cm/sec LA cm/sec RVSP 33 mmHg LVOT cm/sec AOP1/2T m/s Asc. Ao cm/sec RVOT cm/sec RA cm/sec PA cm/sec AV Gradient Peak mmHg AV Mean mmHg AV Area cm MV Gradient Peak mmHg MV Mean mmHg MV Area cm COMMENTS: Button And Buckle Maker: Jael CASTREJON Drawer Hardware Worker: 1 Dr. Fan TAPE# PACS Pericardial Effusion Y DATE OF SERVICE: 04/24/2018 FINDINGS: 1. Left ventricular chamber size is within normal limits. Left ventricular systolic function is moderately reduced. Overall ejection fraction is estimated at 30%. 2. Left atrium is enlarged at 5.1 cm. Right atrium and right ventricular chamber sizes are as well mildly dilated. 3. Valvular structures have normal structure and motion. 4. Doppler interrogation reveals trace mitral regurgitation. Tutk-mi-[id number] ECHOCARDIOGRAM REPORT [id number] CANDACE HYDE tricuspid regurgitation. No other valvular insufficiency or stenosis. Pulmonary systolic pressure is estimated at 33 mmHg. 5. Vvocr-kr-[id number] pericardial effusion is present. This is not hemodynamically significant. No left ventricular thrombus. TRANSINT:[id number] Voice Confirmation ID: [id number] DOCUMENT ID: [id number] CINDY FAN MD at 1329 CC: [id number] DICTATION DATE: 04/24/18 1334 SUPERVISOR ELECTRONICS ASSEMBLY: 04/24/18 1418 ADM IN [facility] [address] [id number]
--- NOTE | 2018-05-06 15:16 | NUR ---
PER DIALYSIS NURSE-3L OFF DURING DIALYSIS.
--- NOTE | 2018-05-06 15:20 | NUR ---
NO CHANGE IN ASSESSMENT. RESP EVEN AND UNLABORED. NO DISTRESS NOTED.
[2018-05-06 17:04] VITALS: BP 135/87
[2018-05-06 19:00] VITALS: BP 112/60
--- NOTE | 2018-05-06 22:15 | NUR ---
IV SITE IS RED AND EDEMATOUS. PT REPORTS PAIN. 22G IV DC'D WITH CATH INTACT.
[2018-05-07] VITALS: BP 123/65
[2018-05-07 04:00] VITALS: BP 141/83
[2018-05-07 05:16] LABS: HEPATITIS BE ANTIBODY Negative (Negative)
[2018-05-07 05:34] LABS: BASOPHILS 0.2 % (0-2); HEMATOCRIT 32.3 % (36.0-48.0); HEMOGLOBIN 10.6 g/dL (12-16); IMMATURE GRANULOCYTES 0.4 % (0-5); LYMPHOCYTES 7.7 % (15-50); MCH 28.7 pg (26.0-34.0); MCHC 32.8 g/dL (31.0-37.0); MCV 87.5 fL (80.0-100.0); MEAN PLATELET VOLUME 12.5 fL (7.4-10.4); NEUTROPHILS 78.7 % (40-80); PLATELET COUNT 182 10x3/uL (130-400); RBC 3.69 10x6/uL (4.00-5.40); RDW 20.1 % (11.5-14.5); WBC 13.6 10x3/uL (4.8-10.8)
[2018-05-07 05:40] LABS: PLATELET ESTIMATE NORMAL; PLATELET MORPHOLOGY NORMAL PLT MORPH
[2018-05-07 06:07] LABS: ALBUMIN 3.3 g/dL (3.4-5.0); ANION GAP 19.1 mmol/L (8-16); BILIRUBIN - TOTAL 3.82 mg/dL (0.2-1.3); CARBON DIOXIDE 24.8 mmol/L (21.0-32.0); CREATININE - SERUM 3.7 mg/dL (0.6-1.3); POTASSIUM - SERUM 3.9 mmol/L (3.5-5.1); PROTEIN - SERUM 6.5 g/dL (6.4-8.2)
--- NOTE | 2018-05-07 07:15 | NUR ---
REC'D IN BED AWAKE ALERT. RESP EVEN AND UNLABORED WITH NO DISTRESS NOTED. CAN EXPRESS NEEDS AND WANTS. DENIES ANY PAIN OR DISCOMFORT. ASSESSMENT COMPELTED. C/L IN REACH AT BEDSIDE.
[2018-05-07 08:08] VITALS: BP 107/72
[2018-05-07 09:18] LABS: HEPATITIS BE ANTIGEN Positive (Negative)
[2018-05-07 11:08] VITALS: BP 112/70
--- NOTE | 2018-05-07 13:53 | NUR ---
Nutrition follow-up: Diet: Renal ADA PO intake ~50% of meals Labs reviewed Wt: 259# +BM PO intake decreased due to pt with nausea Will continue to provide food choices with selective menus and honor food preferences within diet restrictions. RDN following.
[2018-05-07 15:37] VITALS: BP 112/73
[2018-05-07 21:09] VITALS: BP 117/77
--- NOTE | 2018-05-07 21:50 | NUR ---
RESUMING CARE. PT IS ALERT AND LAYING IN THE BED. NO C/O VOICED AT THIS TIME. BED IN THE LOWEST POSITION WITH CALL LIGHT IN REACH. WILL CONTINUE TO MONITOR PT AND FOLLOW PLAN OF CARE. SIDE RAIL UP X 2
--- NOTE | 2018-05-07 23:38 | NUR ---
LYING IN BED WITH CALL LIGHT IN REACH. WILL CONTINUE TO MONITOR.
[2018-05-08] VITALS: BP 109/81
[2018-05-08 04:00] VITALS: BP 151/60
--- NOTE | 2018-05-08 04:59 | NUR ---
PT IS LAYING IN BED WITH EYES CLOSED RESTING COMFORTABLY. BED IN LOW POSITION WITH CALL LIGHT IN REACH. WILL CONTINUE TO MONITOR PT AND FOLLOW PLAN OF CARE.
[2018-05-08 05:40] LABS: ALBUMIN 3.5 g/dL (3.4-5.0); BILIRUBIN - TOTAL 3.32 mg/dL (0.2-1.3); CARBON DIOXIDE 24.5 mmol/L (21.0-32.0); CREATININE - SERUM 3.8 mg/dL (0.6-1.3); POTASSIUM - SERUM 4.5 mmol/L (3.5-5.1); PROTEIN - SERUM 6.6 g/dL (6.4-8.2)
[2018-05-08 06:02] LABS: HEMATOCRIT 31.4 % (36.0-48.0); HEMOGLOBIN 10.4 g/dL (12-16); MCH 28.9 pg (26.0-34.0); MCHC 33.1 g/dL (31.0-37.0); MCV 87.2 fL (80.0-100.0); RDW 20.1 % (11.5-14.5); WBC 12.7 10x3/uL (4.8-10.8)
[2018-05-08 06:03] LABS: PLATELET COUNT 126 10x3/uL (130-400)
[2018-05-08 07:49] VITALS: BP 138/64
[2018-05-08 07:53] LABS: LYMPHOCYTES 7 % (15-50); MONOCYTES 7 % (2-11); NEUTROPHILS 83 % (40-80); PLATELET ESTIMATE NORMAL
[2018-05-08 07:54] LABS: ANISOCYTOSIS 1+; HYPOCHROMASIA OCC
[2018-05-08 09:19] LABS: HEPATITIS C ANTIBODY 0.2 S/CO RAT (0.0-0.9)
[2018-05-08 10:20] LABS: HEPATITIS BE ANTIGEN Negative (Negative)
--- NOTE | 2018-05-08 10:25 | NUR ---
RESTING QUIETLY IN BED. CONTACT ISOLATION PRECAUTIONS IN PLACE.
[2018-05-08 11:00] VITALS: BP 152/79
--- NOTE | 2018-05-08 13:32 | NUR ---
PT NOTED TO HAVE OPEN AREA ON RIGHT BUTTOCK. MEPILEX APPLIED TO AREA.
--- NOTE | 2018-05-08 15:42 | MORECARE ---
CASE MANAGEMENT DISCHARGE SUMMARY PATIENT: CANDACE HYDE UNIT: [id number] ADM DATE: 04/23/18 AGE: 68 : 49 SEX: F ROOM/BED: D.5007 AUTHOR: EDDIEDOC PHYSICIAN: REFERRING PHYSICIAN: VICTOR MANUEL REYNOSO MD DATE OF SERVICE: 05/08/18 Discharge Plan Patient Name: CANDACE HYDE Facility: [facility]:[place] : 1950 Planned Disposition: [facility] Facility Anticipated Discharge Date: 05/12/18 Discharge Date: Expected LOS: 19 Initial Reviewer: [email or web address] Initial Review Date: 04/30/2018 Generated: 05/08/18 4:42 pm Comments DCP- Discharge Planning Updated by [email or web address]: Stephie De Los Santos on 04/30/18 5:[address] Patient Name: CANDACE HYDE Admission Status: ER Accout number: [id number] Admission Date: 04-23-2018 : 1950 Admission Diagnosis:ACUTE ON CHRONIC SYSTOLIC (CONGESTIVE) HEART FAILURE Attending: VICTOR MANUEL REYNOSO Current LOS: 7 Anticipated DC Date: 05-04-2018 Planned Disposition: Home Primary Insurance: MEDICARE A & B Discharge Planning Comments: CM MET WITH PATIENT AND DAUGHTER (ROMERO) REGARDING D/C NEEDS AND PLANS. PATIENTS DAUGHTER STATED SHE WILL GO HOME WITH HER OR GO TO A REHAB. PATIENT WANTS TO SPEAK WITH DR. BIGGS AGAIN BEFORE SHE DECIDES IF SHE WANTS DIALYSIS OR NOT. PATIENTS PCP IS DR. LOZADA AND HER PHARMACY IS [facility]. ZONIATENT STATED SHE HAS A GLUCOMETER, WALKER, BS COMMODE AT HOME. PATIENT CHOSE TO BE A DNR TODAY PER DR. PARRA NOTE. CM WILL CONTINUE TO FOLLOW PATIENT WITH D/C NEEDS AND PLANS. PCP DR. [facility] [address] (PHARMACY) ROMERO (DAUGHTER) [phone] Fly Setter: Stephie De Los Santos DCPIA - Discharge Planning Initial Assessment Updated by [id number]: Stephie De Los Santos on 04/30/18 6:37 pm * Is the patient Alert and Oriented? Yes * How many steps to enter\exit or inside your home? * PCP DR. LOAZDA * Pharmacy [facility] [address] * Preadmission Environment Home with Family * ADLs Partial Dependent * Partial ADLs (Assistance needed) Bathing Dressing Medication Management Toileting * Equipment Bedside Commode Glucometer Walker * List name and contact numbers for known caregivers / representatives who currently or will assist patient after discharge: ROMERO FITZGERALD (DAUGHTER) [phone] * Verbal permission to speak to the caregivers and representatives has been obtained from the patient. Yes * Community resources currently utilized None * Additional services required to return to the preadmission environment? Yes * Can the patient safely return to the preadmission environment? Yes * Has this patient been hospitalized within the prior 30 days at any hospital? Yes External Providers External Provider: [facility] Next Contact Date: 05/08/2018 Service Request Date: Service Type: Resolution: Reviewer: Comments: Cristi DP export: 04/30/18 5:50 pm Patient Name: CANDACE HYDE Page 66791 at 1542 All edits/amendments must be made on the electronic document DICTATION DATE: 05/08/18 1542 CHORUS DANCER: BONNIE 05/08/18 1542 RPT#: [id number] DC DATE: STATUS: ADM IN [facility] [address] [place] [address] END OF REPORT
--- NOTE | 2018-05-08 16:41 | MORECARE ---
CASE MANAGEMENT DISCHARGE SUMMARY PATIENT: CANDACE HYDE UNIT: [id number] ADM DATE: 04/23/18 AGE: 68 : 49 SEX: F ROOM/BED: D.9997 AUTHOR: LIUDMILA MORGAN PHYSICIAN: REFERRING PHYSICIAN: VICTOR MANUEL REYNOSO MD DATE OF SERVICE: 05/08/18 Discharge Plan Patient Name: CANDACE HYDE Facility: [facility]:[place] : 1950 Planned Disposition: [facility] Facility Anticipated Discharge Date: 05/12/18 Discharge Date: Expected LOS: 19 Initial Reviewer: [email or web address] Initial Review Date: 04/30/2018 Generated: 05/08/18 5:41 pm Comments DCP- Discharge Planning Updated by [email or web address]: Afshin Gudino on 05/08/18 3:[address] Patient Name: CANDACE HYDE Encounter No: [id number] : 1950 Primary Insurance: MEDICARE A & B Anticipated DC Date: 05-12-2018 Planned Disposition: [facility] Facility External Planned Provider: [facility], MEDICARE REHAB BED DCP follow-up note: CM RECEIVED ORDER FOR REHAB SERVICES AND OUTPATIENT DIALYSIS CLINIC ARRANGEMENT. CM SPOKE TO DAVID OF [facility] WHO IS WORKING ON DIALYSIS CLINIC PLACEMENT. CM SPOKE TO PT IN ROOM, DISCUSSED REHAB OPTIONS AND LOCATIONS. PT TOO LOW FUNCTIONING FOR INPATIENT REHAB. PT SIGNED CHOICE FOR [facility] OR [facility]. IMPORTANT MESSAGE FROM MEDICARE PROVIDED AND EXPLAINED. CM CALLED [facility], SPOKE TO SHAYAN WHO ADVISED THEY CANNOT ACCEPT PT ON DIALYSIS. CM NOTIFIED VESNA OF [facility], , OF REHAB REFERRAL. CM FAXED REFERRAL FOR REHAB TO [facility] VIA [facility] AT [phone]. CM WAITING OUTPATIENT DIALYSIS SCHEDULE WELL ADMISSION DETERMINATION FROM [facility]. MILEY Anderson DCP- Discharge Planning Updated by [id number]: Stephie De Los Santos on 04/30/18 5:[address] Patient Name: CANDACE HYDE Admission Status: ER Accout number: [id number] Admission Date: 04-23-2018 : 1950 Admission Diagnosis:ACUTE ON CHRONIC SYSTOLIC (CONGESTIVE) HEART FAILURE Attending: VICTOR MANUEL REYNOSO Current LOS: 7 Anticipated DC Date: 05-04-2018 Planned Disposition: Home Primary Insurance: MEDICARE A & B Discharge Planning Comments: CM MET WITH PATIENT AND DAUGHTER (ROMERO) REGARDING D/C NEEDS AND PLANS. PATIENTS DAUGHTER STATED SHE WILL GO HOME WITH HER OR GO TO A REHAB. PATIENT WANTS TO SPEAK WITH DR. BIGGS AGAIN BEFORE SHE DECIDES IF SHE WANTS DIALYSIS OR NOT. PATIENTS PCP IS DR. LOZADA AND HER PH[facility]ACY IS [facility] [address]. JOSE STATED SHE HAS A GLUCOMETER, WALKER, BS COMMODE AT HOME. PATIENT CHOSE TO BE A DNR TODAY PER DR. PARRA NOTE. CM WILL CONTINUE TO FOLLOW PATIENT WITH D/C NEEDS AND PLANS. PCP DR. [facility] [address] (PHARMACY) ROMERO (DAUGHTER) [phone] Supervisor Bottle Machines: Stephie De Los Santos DCPIA - Discharge Planning Initial Assessment Updated by [id number]: Stephie De Los Santos on 04/30/18 6:37 pm * Is the patient Alert and Oriented? Yes * How many steps to enter\exit or inside your home? * PCP DR. LOZADA * Pharmacy [facility] [address] * Preadmission Environment Home with Family * ADLs Partial Dependent * Partial ADLs (Assistance needed) Bathing Dressing Medication Management Toileting * Equipment Bedside Commode Glucometer Walker * List name and contact numbers for known caregivers / representatives who currently or will assist patient after discharge: ROMERO FITZGERALD (DAUGHTER) [phone] * Verbal permission to speak to the caregivers and representatives has been obtained from the patient. Yes * Community resources currently utilized None * Additional services required to return to the preadmission environment? Yes * Can the patient safely return to the preadmission environment? Yes * Has this patient been hospitalized within the prior 30 days at any hospital? Yes External Providers External Provider: [facility] [place] Next Contact Date: 05/08/2018 Service Request Date: Service Type: Resolution: Reviewer: Comments: External Provider: [facility] Next Contact Date: 05/08/2018 Service Request Date: Service Type: Resolution: Reviewer: Comments: Coverage Notice Reviewer: [id number] John Gudino Notice Issued Date-Time: 05/08/2018 11:20 Notice Type: Patient Choice Letter Notice Delivered To: Patient Relationship to Patient: Catheter Finisher And Inspector Name: Delivery Method: HAND - Hand Delivered Laney Days: Prior Verbal Notification: Recipient Understood Notice: Yes Recipient Signature: Yes Med Rec Note Co-signed by Attending: Coverage Notice Comment: 1 - NIYA, 2 - ABEL RODRIGUES Reviewer: [id number] - Afshin Gudino Notice Issued Date-Time: 05/08/2018 11:20 Notice Type: IM Discharge Notice Notice Delivered To: Patient Relationship to Patient: Catheter Finisher And Inspector Name: Delivery Method: HAND - Hand Delivered Laney Days: Prior Verbal Notification: Recipient Understood Notice: Yes Recipient Signature: Yes Med Rec Note Co-signed by Attending: Coverage Notice Comment: Last DP export: 05/08/18 2:42 p Patient Name: CANDACE HYDE Page 97738 at 1641 All edits/amendments must be made on the electronic document DICTATION DATE: 05/08/181640 VACUUM EXTRACTOR OPERATOR: BONNIE 05/08/181640 RPT#: [id number] DC DATE: STATUS: ADM IN [facility] [address] [place] [address] END OF REPORT
[2018-05-08 17:02] VITALS: BP 136/66
[2018-05-08 20:00] VITALS: BP 128/53
--- NOTE | 2018-05-08 20:00 | NUR ---
INITIAL ROUNDS COMPLETED - PT CLEAN AND DRY PER DANNI CHAVEZ. MCCARTHY DRAINING RED-TINGED URINE. IV IN R UA NOT PATENT. D/C'D IV WITH CATHETER IN TACT. 20G IV STARTED IN L AC/FOREARM, X1 STICK. IV PATENT AND HAS GOOD BLOOD RETURN. NO COMPLAINT OF PAIN OR DISCOMFORT AT IV SITE. DRESSING DATED AND INITIALED, C/D/I. ALBUMIN INFUSING VIA GRAVITY. NO FURTHER NEEDS NOTED AT THIS TIME. WILL CONTINUE TO OBSERVE AND FOLLOW POC. CL IN REACH, SR UP X2, BED IN LOW POSITION.
[2018-05-09] VITALS (7 sets, daily range): BP systolic 108–152; BP diastolic 33–58
--- NOTE | 2018-05-09 03:51 | NUR ---
PT IN BED, A/O X4. ALBUMIN INFUSION COMPLETED. IV FLUSHED, STILL PATENT, AND SL'D. PT REPORTS NO PAIN OR DISCOMFORT AT THE IV SITE. NO NEEDS NOTED AT THIS TIME. DIMMED LIGHTS TO DECREASE STIMULI. WILL CONTINUE TO MONITOR NEEDS. CL IN REACH, SR UP X2, BED IN LOW POSITION. GARAGEMAN IN TO DO VITALS. SCDS ON.
[2018-05-09 05:17] LABS: HEPATITIS BE ANTIBODY Negative (Negative)
--- NOTE | 2018-05-09 07:30 | NUR ---
RECEIVED A/A/OX4. DENIES ANY PAIN OR DISCOMFORT AND NO REQUESTS VOICED. IV PATENT TO UPPER LEFT ARM WITH NO REDNESS OR EDEMA. HEMESPLIT TO LEFT CHEST PATENT WITH DRESSING C/D/I. MCCARTHY PATENT AND DRAINING NAYELI COLORED URINE. REMAINS IN CONTACT ISOLATION WITH PRECAUTIONS BEING CARRIED OUT. BED IN LOWEST POSITION WITH SIDERAILS UP X 2 AND CALL LIGHT IN REACH. ASSESSMENT COMPLETED.
[2018-05-09 09:46] LABS: BASOPHILS 0.2 % (0-2); EOSINOPHILS 2.7 % (0-7); IMMATURE GRANULOCYTES 0.3 % (0-5); LYMPHOCYTES 4.7 % (15-50); MCH 28.7 pg (26.0-34.0); MCHC 32.3 g/dL (31.0-37.0); MCV 88.8 fL (80.0-100.0); MEAN PLATELET VOLUME 12.6 fL (7.4-10.4); MONOCYTES 12.1 % (2-11); RBC 3.49 10x6/uL (4.00-5.40); RDW 20.5 % (11.5-14.5); WBC 12.5 10x3/uL (4.8-10.8)
[2018-05-09 09:57] LABS: PLATELET COUNT 210 10x3/uL (130-400)
[2018-05-09 10:16] LABS: ALBUMIN 3.4 g/dL (3.4-5.0); ANION GAP 14.9 mmol/L (8-16); BILIRUBIN - TOTAL 3.5 mg/dL (0.2-1.3); CALCIUM 9.1 mg/dL (8.5-10.1); CARBON DIOXIDE 26.9 mmol/L (21.0-32.0); CREATININE - SERUM 4.1 mg/dL (0.6-1.3); POTASSIUM - SERUM 3.8 mmol/L (3.5-5.1); PROTEIN - SERUM 6.6 g/dL (6.4-8.2)
--- NOTE | 2018-05-09 10:27 | NUR ---
RESTS IN ISOLATION ROOM. RESP UL ON . IV PATENT. NO NEEDS VOICED AT THIS TIME. WILL MONITOR.
--- NOTE | 2018-05-09 21:00 | NUR ---
PT SITTING UP IN BED. DENIES PAIN AT THIS TIME. VITALS STABLE. MEDS TAKEN WITHOUT DIFFICULTY. ALERT AND ORIENTED X 4. MCCARTHY IN PLACE- NAYELI URINE NOTED. L CHEST HEMESPLIT, DRSG CDI. GENERALIZED EDEMA NOTED TO UPPER AND LOWER EXT. INCONTINENT OF BOWEL. L UPPER ARM PERIPHERAL IV SL. PACED ON TELE. MEPELEX APPLIED TO OPEN SORE ON BUTTOCKS. 2L 02 VIA NC. DNR. CONTACT ISOLATION PERCAUTIONS. NO FURTHER CONERNS AT THIS TIME. BED LOWERED AND LOCKED. CL IN REACH. WILL CONTINUE TO MONITOR. SR UP X 2.
--- NOTE | 2018-05-10 00:18 | NUR ---
PT C/O NAUSEA. ZOFRAN 4MG IV GIVEN. NO FURTHER CONCERNS AT THIS TIME. BED LOWERED AND LOCKED. CL IN REACH. SR UP X 2. CPOC.
--- NOTE | 2018-05-10 03:28 | NUR ---
JUDITH NOTE: PATIENT RESTING IN BED. EYES CLOSED. RESPIRATIONS EVEN AND UNLABORED. NO S/S OF DISTRESS. CALL LIGHT WITHIN REACH. WILL CPOC.
[2018-05-10 03:55] VITALS: BP 101/42
--- NOTE | 2018-05-10 07:20 | NUR ---
PT LYING IN BED, STATES SHE WANTS TO WASH OFF LATER. NO OTHER CONCNERNS/COMPLAINTS VOICED AT THIS TIME. CL IN REACH. SRX2. O2 AT [place] IS 97%
--- NOTE | 2018-05-10 07:29 | NUR ---
REFUSED [facility]. UNABLE TO CHECK EP
--- NOTE | 2018-05-10 10:22 | NUR ---
RESTS IN ISOLATION. RESP UL ON . CALL LIGHT IN REACH. WILL CONT. PLAN OF CARE.
[2018-05-10 10:41] VITALS: BP 123/48
[2018-05-10 17:11] VITALS: BP 129/63
--- NOTE | 2018-05-10 18:28 | NUR ---
300 OUT VIA CATH
--- NOTE | 2018-05-10 19:28 | NUR ---
RECEIVED REPORT, WILL ASSUME CARE OF PT, PT IS SLEEPING, BED IS LOW, SRX3, CALL LIGHT IN REACH, WILL CONTINUE PLAN OF CARE
[2018-05-10 20:30] VITALS: BP 114/45
--- NOTE | 2018-05-10 21:00 | NUR ---
[id number] COVERAGE GIVEN, ASSISTED BILL DISTRIBUTOR WITH REPOSTIONING PT
[2018-05-11 04:30] VITALS: BP 171/70
--- NOTE | 2018-05-11 05:00 | NUR ---
PT RESTING IN BED WITH NO DISTRESS. RESPS EVEN/NONLABORED. MONITOR AND CPOC. CALL LIGHT IN REACH. NO NEEDS AT THIS TIME.
--- NOTE | 2018-05-11 07:30 | NUR ---
PT LYING IN BED, REQUESTS HAIR WASHED. TO BE CHANGED, TO BE REPOSITIONED AND MADE MORE COMFORTABLE. ALLWISHES ACCOMIDATED. MCCARTHY CARE PREFORMED. CL IN REACH.
[2018-05-11 09:18] VITALS: BP 136/40
--- NOTE | 2018-05-11 10:55 | NUR ---
RESTS IN ISOLATION ROOM. RESP UL ON . CALL LIGHT IN REACH. WILL CONT. PLAN OF CARE.
[2018-05-11 14:28] VITALS: BP 136/40
--- NOTE | 2018-05-11 17:44 | NUR ---
PT LYING INBED. SUPPER TRAY PROVIDED. MCCARTHY D/C PER NURSING PROTOCOL AND MD ORDER. BED CHANGED, MEPLEX CHANGED ON BOTTOM. BLEEDING EXORATION ON BOTTOM. RELIEVED TO HAVE MCCARTHY OUT. FINAL OUTPUT 200. NO COMPLAINTS OR CONCERNS. UNDERSTANDS NEED TO USE BED STARK AND PRESS CALL LIGHT FOR HELP. CL IN REACH.
--- NOTE | 2018-05-11 19:30 | NUR ---
RECEIVED REPORT, WILL ASSUME CARE OF PT, ASSISTED WITH REPOSTION OF PT, BED IS LOW, SRX2, CALL LIGHT IN REACH, WILL CONTINUE PLAN OF CARE
[2018-05-11 20:30] VITALS: BP 150/65
--- NOTE | 2018-05-11 21:00 | NUR ---
[id number] 4 UNITS HUMULIN R
[2018-05-12 04:30] VITALS: BP 142/68
--- NOTE | 2018-05-12 05:00 | NUR ---
PT RESTING IN BED WITH NO DISTRESS. RESPS EVEN/NONLABORED. CALL LIGHT IN REACH. MONITOR AND CPOC.
[2018-05-12 05:36] LABS: BASOPHILS 0.4 % (0-2); EOSINOPHILS 3.4 % (0-7); HEMATOCRIT 30.3 % (36.0-48.0); HEMOGLOBIN 9.6 g/dL (12-16); IMMATURE GRANULOCYTES 0.2 % (0-5); LYMPHOCYTES 5.5 % (15-50); MCHC 31.7 g/dL (31.0-37.0); MCV 91.5 fL (80.0-100.0); MEAN PLATELET VOLUME 12.9 fL (7.4-10.4); MONOCYTES 14.1 % (2-11); NEUTROPHILS 76.4 % (40-80); RBC 3.31 10x6/uL (4.00-5.40); RDW 20.8 % (11.5-14.5); WBC 10.7 10x3/uL (4.8-10.8)
[2018-05-12 05:39] LABS: PLATELET COUNT 268 10x3/uL (130-400)
[2018-05-12 06:12] LABS: ANION GAP 15.7 mmol/L (8-16); CALCIUM 9.3 mg/dL (8.5-10.1); CARBON DIOXIDE 27.6 mmol/L (21.0-32.0); CREATININE - SERUM 3.9 mg/dL (0.6-1.3); POTASSIUM - SERUM 3.3 mmol/L (3.5-5.1)
--- NOTE | 2018-05-12 07:30 | NUR ---
A/A/OX4. NO COMPLAINTS OR REQUESTS VOICED. BED IN LOW POSITION, SIDERAILS UP X 2 AND CALL LIGHT IN REACH. REMAINS IN CONTACT ISOLATION WITH PRECAUTIONS BEING FOLLOWED. WILL CONTINUE WITH POC
--- NOTE | 2018-05-12 09:44 | MORECARE ---
CASE MANAGEMENT DISCHARGE SUMMARY PATIENT: CANDACE HYDE UNIT: [id number] ADM DATE: 04/23/18 AGE: 68 : [birth year] SEX: F ROOM/BED: D.7274 AUTHOR: EDDIEDOC PHYSICIAN: REFERRING PHYSICIAN: VICTOR MANUEL REYNOSO MD DATE OF SERVICE: 05/12/18 Discharge Plan Patient Name: CANDACE HYDE Facility: [facility]:[place] : 1950 Planned Disposition: Correction Facility Anticipated Discharge Date: 05/12/18 Discharge Date: Expected LOS: 19 Initial Reviewer: [email or web address] Initial Review Date: 04/30/2018 Generated: 05/12/18 10:44 am Comments DCP- Discharge Planning Updated by [id number]: Afshin Gudino on 05/12/18 8:[address] Patient Name: CANDACE HYDE Encounter No: [id number] : 1950 Primary Insurance: MEDICARE A & B Anticipated DC Date: 05-12-2018 Planned Disposition: [facility] Facility External Planned Provider: [facility], MEDICARE REHAB BED DCP follow-up note: CM FAXED REFERRAL UPDATE FOR REHAB TO [facility] VIA [facility] AT [phone]. CM WAITING OUTPATIENT DIALYSIS SCHEDULE WELL ADMISSION DETERMINATION FROM [facility] FOR [facility]. MILEY Anderson DCP- Discharge Planning Updated by [id number]: Afshin Gudino on 05/08/18 3:[address] Patient Name: CANDACE HYDE Encounter No: [id number] : 1950 Primary Insurance: MEDICARE A & B Anticipated DC Date: 05-12-2018 [facility] DCP follow-up note: CM RECEIVED ORDER FOR REHAB SERVICES AND OUTPATIENT DIALYSIS CLINIC ARRANGEMENT. CM SPOKE TO DAVID OF [facility] WHO IS WORKING ON DIALYSIS CLINIC PLACEMENT. CM SPOKE TO PT IN ROOM, DISCUSSED REHAB OPTIONS AND LOCATIONS. PT TOO LOW FUNCTIONING FOR INPATIENT REHAB. PT SIGNED CHOICE FOR [facility] OR [facility]. IMPORTANT MESSAGE FROM MEDICARE PROVIDED AND EXPLAINED. CM CALLED [facility], SPOKE TO SHAYAN WHO ADVISED THEY CANNOT ACCEPT PT ON DIALYSIS. CM NOTIFIED V[facility] OF [facility], , OF REHAB REFERRAL. CM FAXED REFERRAL FOR REHAB TO [facility] VIA [facility] AT [phone]. CM WAITING OUTPATIENT DIALYSIS SCHEDULE WELL ADMISSION DETERMINATION FROM [facility] FOR [facility]. Afshin Gudino, CASE MANAGEMENT DCP- Discharge Planning Updated by [email or web address]: Stephie De Los Santos on 04/30/18 5:[address] Patient Name: CANDACE HYDE Admission Status: ER Accout number: [id number] Admission Date: 04-23-2018 : 1950 Admission Diagnosis:ACUTE ON CHRONIC SYSTOLIC (CONGESTIVE) HEART FAILURE Attending: VICTOR MANUEL REYNOSO Current LOS: 7 Anticipated DC Date: 05-04-2018 Planned Disposition: Home Primary Insurance: MEDICARE A & B Discharge Planning Comments: CM MET WITH PATIENT AND DAUGHTER (ROMERO) REGARDING D/C NEEDS AND PLANS. PATIENTS DAUGHTER STATED SHE WILL GO HOME WITH HER OR GO TO A REHAB. PATIENT WANTS TO SPEAK WITH DR. BIGGS AGAIN BEFORE SHE DECIDES IF SHE WANTS DIALYSIS OR NOT. PATIENTS PCP IS DR. LOZADA AND HER PHARMACY IS [facility] [address]. TIANNAT STATED SHE HAS A GLUCOMETER, IFEOMA RENNER COMMODE AT HOME. PATIENT CHOSE TO BE A DNR TODAY PER DR. PARRA NOTE. CM WILL CONTINUE TO FOLLOW PATIENT WITH D/C NEEDS AND PLANS. PCP DR. [facility] [address] (PHARMACY) ROMERO (DAUGHTER) [phone] Onion Farmer: Stephie De Los Santos DCPIA - Discharge Planning Initial Assessment Updated by [email or web address]: Stephie De Los Santos on 04/30/18 6:37 pm * Is the patient Alert and Oriented? Yes * How many steps to enter\exit or inside your home? * PCP DR. LOZADA * [facility] [address] * Preadmission Environment Home with Family * ADLs Partial Dependent * Partial ADLs (Assistance needed) Bathing Dressing Medication Management Toileting * Equipment Bedside Commode Glucometer Walker * List name and contact numbers for known caregivers / representatives who currently or will assist patient after discharge: ROMERO FITZGERALD (DAUGHTER) [phone] * Verbal permission to speak to the caregivers and representatives has been obtained from the patient. Yes * Community resources currently utilized None * Additional services required to return to the preadmission environment? Yes * Can the patient safely return to the preadmission environment? Yes * Has this patient been hospitalized within the prior 30 days at any hospital? Yes Coverage Notice Reviewer: [email or web address] John Gudino Notice Issued Date-Time: 05/08/2018 11:20 Notice Type: Patient Choice Letter Notice Delivered To: Patient Relationship to Patient: Book Coverer Name: Delivery Method: HAND - Hand Delivered Laney Days: Prior Verbal Notification: Recipient Understood Notice: Yes Recipient Signature: Yes Med Rec Note Co-signed by Attending: Coverage Notice Comment: 1 - KAVITHAFRANK, 2 - ABEL LILIA Reviewer: [id number] John Gudino Notice Issued Date-Time: 05/08/2018 11:20 Notice Type: IM Discharge Notice Notice Delivered To: Patient Relationship to Patient: Book Coverer Name: Delivery Method: HAND - Hand Delivered Laney Days: Prior Verbal Notification: Recipient Understood Notice: Yes Recipient Signature: Yes Med Rec Note Co-signed by Attending: Coverage Notice Comment: Last DP export: 05/08/18 3:41 p Patient Name: CANDACE HYDE Page [phone] at 0944 All edits/amendments must be made on the electronic document DICTATION DATE: 05/12/18942 INTEGRATED MARKETING INTERN: BONNIE 05/12/18942 RPT#: [id number] DC DATE: STATUS: ADM IN [facility] [address] [place] [address] END OF REPORT
[2018-05-12 10:14] VITALS: BP 127/48
--- NOTE | 2018-05-12 13:00 | NUR ---
PT IS BACK IN BED AT THIS TIME. SAT UP IN BEDSIDE CHAIR MOST OF THE MORNING AND STATES IT REALLY FELT GOOD FOR A CHANGE.
--- NOTE | 2018-05-12 14:36 | NUR ---
PT FIXING TO GET DIALYSIS IN ROOM. PT DENIES ANY NEEDS AT THIS TIME. MONITOR SHOWING SR 67. CALL LIGHT IN REACH, NAD NOTED.
--- NOTE | 2018-05-12 17:12 | NUR ---
SPOKE WITH OTTO MENDOSA: EP ORDER DC'D ON AND PT HAD K+OF 3.3 TODAY. STATES NO NEED TO START BACK ON EP SINCE SHE IS NOW ON DIALYSIS.
--- NOTE | 2018-05-12 19:30 | NUR ---
RECEIVED REPORT, WILL ASSUME CARE OF PT, DENIES ANY NEEDS AT THIS TIME, BED IS LOW, SRX2, CALL LIGHT IN REACH, WILL CONTINUE PLAN OF CARE
[2018-05-12 19:55] VITALS: BP 139/62
[2018-05-13 00:11] VITALS: BP 137/57
[2018-05-13 03:50] VITALS: BP 130/47
--- NOTE | 2018-05-13 07:00 | NUR ---
RECEIVED REPORT. ASSUMED CARE OF PATIENT. CALL LIGHT WITH IN REACH. REMAINS ON ISOLATION FOR VRE IN URINE. NO MCCARTHY CATHETER AT THIS TIME. DENIES NEEDS AT THIS TIME. NO DISTRESS.
[2018-05-13 07:34] LABS: ANION GAP 16.7 mmol/L (8-16); CALCIUM 9.2 mg/dL (8.5-10.1); CARBON DIOXIDE 26.7 mmol/L (21.0-32.0); CREATININE - SERUM 3.3 mg/dL (0.6-1.3); POTASSIUM - SERUM 3.4 mmol/L (3.5-5.1)
[2018-05-13 07:55] LABS: BASOPHILS 0.4 % (0-2); EOSINOPHILS 4.2 % (0-7); HEMATOCRIT 30.1 % (36.0-48.0); HEMOGLOBIN 9.5 g/dL (12-16); IMMATURE GRANULOCYTES 0.3 % (0-5); LYMPHOCYTES 5.8 % (15-50); MCH 28.9 pg (26.0-34.0); MCHC 31.6 g/dL (31.0-37.0); MCV 91.5 fL (80.0-100.0); MONOCYTES 14.6 % (2-11); NEUTROPHILS 74.7 % (40-80); PLATELET COUNT 271 10x3/uL (130-400); RBC 3.29 10x6/uL (4.00-5.40); RDW 20.8 % (11.5-14.5); WBC 11.8 10x3/uL (4.8-10.8)
--- NOTE | 2018-05-13 09:40 | NUR ---
MEDICATED FOR NAUSEA AT THIS TIME. PATIENT DENIES EATING AM MEAL. K+3.4 AND EP ORDERD PER EDGARDO BUT PATIENT IS RENAL. CONSULTED WITH BIRD PANDYA BEFORE ADMINISTERING EP FOR THIS PATIENT. EP FOR LOW K+ NOT ADMINISTERED.
[2018-05-13 09:47] VITALS: BP 165/64
--- NOTE | 2018-05-13 11:24 | NUR ---
ROSHNI PANDYA, PUBLICATIONS DISTRIBUTION CLERK DUE TO PATIETN PASSING LARGE FORMED CLOTS. PATIENT STATES SHE HAS TO PEE, AND LARGE CLOTS, LARGER THAN A QUARTER ARE BEING PASSED. 3 CLOTS HAVE PASSED WITHIN A FEW MINUTES. NO STREAM OF BLOOD SEEPING FROM EITHER VAGINAL OR URINARY MEATUS ORRIFICE. AWAITING CALL BACK TO NOTIFY HER OF THIS CHANGE.
--- NOTE | 2018-05-13 11:59 | NUR ---
FSBS 218. 8 UNITS HUMULIN INSULIN PROVIDED PER SLIDING SCALE.
--- NOTE | 2018-05-13 12:28 | NUR ---
16 FR MCCARTHY CATHETER PLACED VIA STERILE TECHNIQUE. 50 CC YELLOW URINE RETURNED UPON INSERTION. DRAINAGE BAG TO GRAVITY. STAT LOCK SECURE TO RIGHT THIGH. PATIENT TOLERATED MCCARTHY CATHETER PLACEMENT WELL. NO DISTRESS. PATIENT IS NOW SITTING UP IN BED CONSUMING NOON MEAL.
[2018-05-13 13:18] LABS: HEMATOCRIT 30.3 % (36.0-48.0); HEMOGLOBIN 9.7 g/dL (12-16)
[2018-05-13 13:27] LABS: INR 1.26 (0.85-1.17); PROTIME 15.3 SECONDS (11.6-15.0)
--- NOTE | 2018-05-13 13:38 | NUR ---
Nutrition Follow Up: Chart reviewed. Pt continues with some nausea. Diet: ADA PO Intake: 19% meal avg Wt stable BM: 05/11/18 Meds and labs reviewed Rec continue current diet as tolerated. Will honor food preferences within diet restrictions. RD following.
--- NOTE | 2018-05-13 14:04 | NUR ---
SPOKE WITH AT 1355 TO DESCRIBE CLOTS PASSED, PATIENT NEGATIVE FOR HYSTERECTOMY. F/C PLACED. NO CLOTS IN URINE TUBING. GAVE ORDERS FOR TRANSVAGINAL ULTRASOUND FOR UTERINE LINING THICKNESS. SPOKE WITH QUANG IN ULTRASOUND AT 1400 ON WHICH TRANSVAGINAL ULTRASOUND TO ORDER. EXPLAINED THAT WE JUST PLACED A MCCARTHY IN PATIENT AND THAT PATIENT IS RENAL PATIENT AND RECEIVES DIALYSIS, BLADDER WILL NOT BE FULL. QUANG STATED THEY WOULD BE OVER SOON THEY COULD THEY HAVE MANY PTS SCHEDULED AND IN ER TODAY. THANKED QUANG FOR HELPING GUIDE THIS MARKETING OPERATIONS ANALYST WITH THE CORRECT TRANSVAGINAL US TO ORDER.
[2018-05-13 15:55] LABS: ALBUMIN 4.3 g/dL (3.4-5.0); BILIRUBIN - DIRECT 1.41 mg/dL (0.00-0.30); BILIRUBIN - INDIRECT 0.9 mg/dL (0.00-1.00); BILIRUBIN - TOTAL 2.31 mg/dL (0.2-1.3); PROTEIN - SERUM 7.1 g/dL (6.4-8.2)
--- NOTE | 2018-05-13 16:17 | NUR ---
FSBS 171. 4 UNITS HUMULIN ADMINISTERED PER SLIDING SCALE.
--- NOTE | 2018-05-13 19:51 | NUR ---
RESUMING CARE. PT LAYING IN BED WITH EYES CLOSED RESTING COMFORTABLY. RESPIRATIONS EVEN AND UNLABORED. BED IN LOW POSITION WITH CALL LIGHT IN REACH. WILL CONTINUE TO MONITOR PT AND FOLLOW PLAN OF CARE.
[2018-05-13 20:41] VITALS: BP 111/47
--- NOTE | 2018-05-14 00:33 | NUR ---
PT STATES SHE NEEDS SOMETHING FOR ANXIETY. SHE STATES SHE FEELS LIKE SHE IS HAVING A PANIC ATTACK. NURSE PRACTIONER WAS CALLED AND NOTIFIED AND SHE ORDERED A ONE TIME DOSE ONLY OF XANAX 0.5.MG PO.
[2018-05-14 00:38] VITALS: BP 127/57
--- NOTE | 2018-05-14 02:45 | NUR ---
PT LAYING IN THE BED WITH EYES CLOSED RESTING COMFORTABLY. RESPIRATIONS ARE EVEN AND UNLABORED. NO SIGNS OF DISTRESS AT THIS TIME. WILL CONTINUE TO MONITOR PT AND FOLLOW PLAN OF CARE.
--- NOTE | 2018-05-14 04:03 | NUR ---
RN NOTE: PATIENT RESTIN COMFORTABLY. RESPIRATIONS ARE EVEN AND UNLABORED. NO S/S OF DISTRESS. NO C/O PAIN. CALL LIGHT WITHIN REACH. WILL CPOC.
[2018-05-14 04:34] VITALS: BP 143/56
[2018-05-14 04:57] LABS: BASOPHILS 0.6 % (0-2); EOSINOPHILS 6.1 % (0-7); HEMATOCRIT 29.4 % (36.0-48.0); HEMOGLOBIN 9.3 g/dL (12-16); IMMATURE GRANULOCYTES 0.3 % (0-5); LYMPHOCYTES 8.5 % (15-50); MCH 29.2 pg (26.0-34.0); MCHC 31.6 g/dL (31.0-37.0); MCV 92.2 fL (80.0-100.0); MEAN PLATELET VOLUME 12.4 fL (7.4-10.4); MONOCYTES 13.7 % (2-11); NEUTROPHILS 70.8 % (40-80); PLATELET COUNT 265 10x3/uL (130-400); RBC 3.19 10x6/uL (4.00-5.40); RDW 21.1 % (11.5-14.5); WBC 8.9 10x3/uL (4.8-10.8)
[2018-05-14 05:06] LABS: ANION GAP 15.5 mmol/L (8-16); BILIRUBIN - TOTAL 1.95 mg/dL (0.2-1.3); CALCIUM 9.4 mg/dL (8.5-10.1); CARBON DIOXIDE 27.8 mmol/L (21.0-32.0); CREATININE - SERUM 3.7 mg/dL (0.6-1.3); POTASSIUM - SERUM 3.3 mmol/L (3.5-5.1); PROTEIN - SERUM 7.1 g/dL (6.4-8.2)
--- NOTE | 2018-05-14 07:38 | NUR ---
REPORT RECEIVED. WILL CONTINUE WITH POC. PT CURRENTLY LYING SEMI FOWLERS. CALL LIGHT W/I REACH. PT IS AAO AND BEDFAST. RR EVEN AND UNLABORED ON 4L 02. L.UPPER ARM PIV IS SALINE LOCKED. PT DENIES ANY NEEDS AT THIS TIME. WILL CTM.
[2018-05-14 08:19] VITALS: BP 155/65
--- NOTE | 2018-05-14 08:29 | MORECARE ---
CASE MANAGEMENT DISCHARGE SUMMARY PATIENT: CANDACE HYDE UNIT: [id number] ADM DATE: 04/23/18 AGE: 68 : 49 SEX: F ROOM/BED: D.2410 AUTHOR: EDDIEDOC PHYSICIAN: REFERRING PHYSICIAN: VICTOR MANUEL REYNOSO MD DATE OF SERVICE: 05/14/18 Discharge Plan Patient Name: CANDACE HYDE Facility: [facility]:[place] : 1950 Planned Disposition: [facility] Facility Anticipated Discharge Date: 05/14/18 Discharge Date: Expected LOS: 21 Initial Reviewer: [id number] Initial Review Date: 04/30/2018 Generated: 05/14/18 9:29 am Comments DCP- Discharge Planning Updated by [id number]: Afshin Gudino on 05/12/18 8:[address] Patient Name: CANDACE HYDE Encounter No: [id number] : 1950 Primary Insurance: MEDICARE A & B Anticipated DC Date: 05-12-2018 Planned Disposition: [facility] Facility External Planned Provider: [facility], MEDICARE REHAB BED DCP follow-up note: CM FAXED REFERRAL UPDATE FOR REHAB TO [facility] VIA [facility] AT [phone]. CM WAITING OUTPATIENT DIALYSIS SCHEDULE WELL ADMISSION DETERMINATION FROM [facility] FOR REHAB. MILEY Anderson DCP- Discharge Planning Updated by [id number]: Afshin Gudino on 05/08/18 3:[address] Patient Name: CANDACE HYDE Encounter No: [id number] : 1950 Primary Insurance: MEDICARE A & B Anticipated DC Date: 05-12-2018 Planned Disposition: [facility] External Planned Provider: [facility], MEDICARE REHAB BED DCP follow-up note: CM RECEIVED ORDER FOR REHAB SERVICES AND OUTPATIENT DIALYSIS CLINIC ARRANGEMENT. CM SPOKE TO DAVID OF [facility] WHO IS WORKING ON DIALYSIS CLINIC PLACEMENT. CM SPOKE TO PT IN ROOM, DISCUSSED REHAB OPTIONS AND LOCATIONS. PT TOO LOW FUNCTIONING FOR INPATIENT REHAB. PT S[facility] CHO[facility] FOR [facility] OR [facility]. IMPORTANT MESSAGE FROM MEDICARE PROVIDED AND EXPLAINED. CM CALLED [facility], SPOKE TO SHAYAN WHO ADVISED THEY CANNOT ACCEPT PT ON DIALYSIS. CM NOTIFIED [facility] OF [facility], , OF REHAB REFERRAL. CM FAXED REFERRAL FOR REHAB TO [facility]IA [facility] AT [phone]. CM WAITING OUTPATIENT DIALYSIS SCHEDULE WELL ADMISSION DETERMINATION FROM [facility] FOR REH[facility]. Afshin Gudino, CASE MANAGEMENT DCP- Discharge Planning Updated by [id number]: Stephie De Los Santos on 04/30/18 5:[address] Patient Name: CANDACE HYDE Admission Status: ER Accout number: [id number] Admission Date: 04-23-2018 : 1950 Admission Diagnosis:ACUTE ON CHRONIC SYSTOLIC (CONGESTIVE) HEART FAILURE Attending: VICTOR MANUEL REYNOSO Current LOS: 7 Anticipated DC Date: 05-04-2018 Planned Disposition: Home Primary Insurance: MEDICARE A & B Discharge Planning Comments: CM MET WITH PATIENT AND DAUGHTER (ROMERO) REGARDING D/C NEEDS AND PLANS. PATIENTS DAUGHTER STATED SHE WILL GO HOME WITH HER OR GO TO A REHAB. PATIENT WANTS TO SPEAK WITH DR. BIGGS AGAIN BEFORE SHE DECIDES IF SHE WANTS DIALYSIS OR NOT. PATIENTS PCP IS DR. LOZADA AND HER PHARMACY IS [facility] [address]. TIANNAT STATED SHE HAS A GLUCOMETER, IFEOMA RENNER COMMODE AT HOME. PATIENT CHOSE TO BE A DNR TODAY PER DR. PARRA NOTE. CM WILL CONTINUE TO FOLLOW PATIENT WITH D/C NEEDS AND PLANS. PCP DR[facility] [address] (PHARMACY) ROMERO (DAUGHTER) [phone] Owner Operator Tanker Truck Driver: Stephie De Los Santos DCPIA - Discharge Planning Initial Assessment Updated by [id number]: Stephie De Los Santos on 04/30/18 6:37 pm * Is the patient Alert and Oriented? Yes * How many steps to enter\exit or inside your home? * PCP DR. LOZADA * Pharmacy [id number] [address] * Preadmission Environment Home with Family * ADLs Partial Dependent * Partial ADLs (Assistance needed) Bathing Dressing Medication Management Toileting * Equipment Bedside Commode Glucometer Walker * List name and contact numbers for known caregivers / representatives who currently or will assist patient after discharge: ROMERO FITZGERALD (DAUGHTER) [phone] * Verbal permission to speak to the caregivers and representatives has been obtained from the patient. Yes * Community resources currently utilized None * Additional services required to return to the preadmission environment? Yes * Can the patient safely return to the preadmission environment? Yes * Has this patient been hospitalized within the prior 30 days at any hospital? Yes Coverage Notice Reviewer: [id number] John Gudino Notice Issued Date-Time: 05/08/2018 11:20 Notice Type: Patient Choice Letter Notice Delivered To: Patient Relationship to Patient: Building Components Designer Name: Delivery Method: HAND - Hand Delivered Laeny Days: Prior Verbal Notification: Recipient Understood Notice: Yes Recipient Signature: Yes Med Rec Note Co-signed by Attending: Coverage Notice Comment: 1 - KAVITHAANDRÉSFERDINAND, 2 - ABEL LILIA Reviewer: [id number] John Gudino Notice Issued Date-Time: 05/08/2018 11:20 Notice Type: IM Discharge Notice Notice Delivered To: Patient Relationship to Patient: Building Components Designer Name: Delivery Method: HAND - Hand Delivered Laney Days: Prior Verbal Notification: Recipient Understood Notice: Yes Recipient Signature: Yes Med Rec Note Co-signed by Attending: Coverage Notice Comment: Last DP export: 05/12/18 8:44 a Patient Name: CANDACE HYDE Page 53890 at 0829 All edits/amendments must be made on the electronic document DICTATION DATE: 05/14/18828 INSPECTOR HANDBAG FRAMES: BONNIE 05/14/18828 RPT#: [id number] DC DATE: STATUS: ADM IN [facility] [address] [place] [address] END OF REPORT
--- NOTE | 2018-05-14 09:28 | MORECARE ---
CASE MANAGEMENT DISCHARGE SUMMARY PATIENT: CANDACE HYDE UNIT: [id number] ADM DATE: 04/23/18 AGE: 68 : 49 SEX: F ROOM/BED: D.3721 AUTHOR: EDDIE,DOC PHYSICIAN: REFERRING PHYSICIAN: VICTOR MANUEL REYNOSO MD DATE OF SERVICE: 05/14/18 Discharge Plan Patient Name: CANDACE HYDE Facility: [facility]:[place] : 1950 Planned Disposition: Prison Facility Anticipated Discharge Date: 05/14/18 Discharge Date: Expected LOS: 21 Initial Reviewer: [id number] Initial Review Date: 04/30/2018 Generated: 05/14/18 10:28 am Comments DCP- Discharge Planning Updated by [id number]: Afshin Gudino on 05/14/18 8:[address] Patient Name: CANDACE HYDE Encounter No: [id number] : 1950 Primary Insurance: MEDICARE A & B Anticipated DC Date: 05-14-2018 Planned Disposition: Prison Facility External Planned Provider: [facility], MEDICARE REHAB BED DCP follow-up note: CM SPOKE TO DAVID OF [facility] LATE 05-13-18, WAS ADVISED THAT PT HAS OUTPATIENT DIALYSIS CLINIC ASSIGNMENT OF [facility], MWF, 1130AM. CM INFORMED [facility] AT [phone]. CM FAXED UPDATE TO [facility] ON 05-14-18 FOR REHAB ADMISSION CONSIDERATION. CM WAITING ADMISSION DETERMINATION FROM [facility] FOR REH[facility]. MILEY Anderson DCP- Discharge Planning Updated by [id number]: Afshin Gudino on 05/12/18 8:[address] Patient Name: CANDACE HYDE Encounter No: [id number] : 1950 Primary Insurance: MEDICARE A & B Anticipated DC Date: 05-12-2018 Planned Disposition: Prison Facility External Planned Provider: [facility], MEDICARE REHAB BED DCP follow-up note: CM FAXED REFERRAL UPDATE FOR REHAB TO [facility] AT [phone]. CM WAITING OUTPATIENT DIALYSIS SCHEDULE WELL ADMISSION DETERMINATION FROM [facility]. MILEY Anderosn MANAGEMENT DCP- Discharge Planning Updated by [email or web address]: Afshin Gudino on 05/08/18 3:[address] Patient Name: CANDACE HYDE Encounter No: [id number] : 1950 Primary Insurance: MEDICARE A & B Anticipated DC Date: 05-12-2018 Planned Disposition: Prison Facility External Planned Provider: [facility], MEDICARE REHAB BED DCP follow-up note: CM RECEIVED ORDER FOR REHAB SERVICES AND OUTPATIENT DIALYSIS CLINIC ARRANGEMENT. CM SPOKE TO DAVID OF [facility] WHO IS WORKING ON DIALYSIS CLINIC PLACEMENT. CM SPOKE TO PT IN ROOM, DISCUSSED REHAB OPTIONS AND LOCATIONS. PT TOO LOW FUNCTIONING FOR INPATIENT REHAB. PT SIGNED CHOICE FOR [facility] OR [facility]. IMPORTANT MESSAGE FROM MEDICARE PROVIDED AND EXPLAINED. CM CALLED [facility], SPOKE TO SHAYAN WHO ADVISED THEY CANNOT ACCEPT PT ON DIALYSIS. CM NOTIFIED [facility] OF [facility], , OF REHAB REFERRAL. CM FAXED REFERRAL FOR REHAB TO [facility]IA [facility] AT [phone]. CM WAITING OUTPATIENT DIALYSIS SCHEDULE WELL ADMISSION DETERMINATION FROM [facility] FOR [facility]. MILEY Anderson DCP- Discharge Planning Updated by [id number]: Stephie De Los Santos on 04/30/18 5:[address] Patient Name: CANDACE HYDE Admission Status: ER Accout number: [id number] Admission Date: 04-23-2018 : 1950 Admission Diagnosis:ACUTE ON CHRONIC SYSTOLIC (CONGESTIVE) HEART FAILURE Attending: VICTOR MANUEL REYNOSO Current LOS: 7 Anticipated DC Date: 05-04-2018 Planned Disposition: Home Primary Insurance: MEDICARE A & B Discharge Planning Comments: CM MET WITH PATIENT AND DAUGHTER (ROMERO) REGARDING D/C NEEDS AND PLANS. PATIENTS DAUGHTER STATED SHE WILL GO HOME WITH HER OR GO TO A REHAB. PATIENT WANTS TO SPEAK WITH DR. BIGGS AGAIN BEFORE SHE DECIDES IF SHE WANTS DIALYSIS OR NOT. PATIENTS PCP IS DR. LOZADA AND HER PHARMACY IS [facility]. TIANNAT STATED SHE HAS A GLUCOMETER, WALKER, BS COMMODE AT HOME. PATIENT CHOSE TO BE A DNR TODAY PER DR. PARRA NOTE. CM WILL CONTINUE TO FOLLOW PATIENT WITH D/C NEEDS AND PLANS. PCP DR[facility] [address] (PHARMACY) ROMERO (DAUGHTER) [phone] Health Policy Manager: Stephie De Los Santos DCPIA - Discharge Planning Initial Assessment Updated by [id number]: Stephie De Los Santos on 04/30/18 6:37 pm * Is the patient Alert and Oriented? Yes * How many steps to enter\exit or inside your home? * PCP DR. LOZADA * Pharmacy [facility] [address] * Preadmission Environment Home with Family * ADLs Partial Dependent * Partial ADLs (Assistance needed) Bathing Dressing Medication Management Toileting * Equipment Bedside Commode Glucometer Walker * List name and contact numbers for known caregivers / representatives who currently or will assist patient after discharge: ROMERO FITZGERALD (DAUGHTER) [phone] * Verbal permission to speak to the caregivers and representatives has been obtained from the patient. Yes * Community resources currently utilized None * Additional services required to return to the preadmission environment? Yes * Can the patient safely return to the preadmission environment? Yes * Has this patient been hospitalized within the prior 30 days at any hospital? Yes Coverage Notice Reviewer: [id number] Gudino Notice Issued Date-Time: 05/08/2018 11:20 Notice Type: Patient Choice Letter Notice Delivered To: Patient Relationship to Patient: Fire And Safety Helper Name: Delivery Method: HAND - Hand Delivered Laney Days: Prior Verbal Notification: Recipient Understood Notice: Yes Recipient Signature: Yes Med Rec Note Co-signed by Attending: Coverage Notice Comment: 1 - NIYA, 2 - ABEL RODRIGUES Reviewer: [id number] Gudino Notice Issued Date-Time: 05/08/2018 11:20 Notice Type: IM Discharge Notice Notice Delivered To: Patient Relationship to Patient: Fire And Safety Helper Name: Delivery Method: HAND - Hand Delivered Laney Days: Prior Verbal Notification: Recipient Understood Notice: Yes Recipient Signature: Yes Med Rec Note Co-signed by Attending: Coverage Notice Comment: Last DP export: 05/14/18 7:29 a Patient Name: CANDACE HYDE Page 71760 at 0928 All edits/amendments must be made on the electronic document DICTATION DATE: 05/14/18926 VISUAL DEVELOPER: BONNIE 05/14/18926 RPT#: [id number] DC DATE: STATUS: ADM IN [facility] [address] [place] [address] END OF REPORT
--- NOTE | 2018-05-14 10:32 | NUR ---
RESTS IN ISOLATION. RESP UL ON . DAVI NEEDS AT THIS TIME. WILL MONITOR.
--- NOTE | 2018-05-14 11:10 | MORECARE ---
CASE MANAGEMENT DISCHARGE SUMMARY PATIENT: CANDACE HYDE UNIT: [id number] ADM DATE: 04/23/18 AGE: 68 : 49 SEX: F ROOM/BED: D.0163 AUTHOR: EDDIE,DOC PHYSICIAN: REFERRING PHYSICIAN: VICTOR MANUEL REYNOSO MD DATE OF SERVICE: 05/14/18 Discharge Plan Patient Name: CANDACE HYDE Facility: [facility]:[place] : 1950 Planned Disposition: Senior Care Facility Anticipated Discharge Date: 05/15/18 Discharge Date: Expected LOS: 22 Initial Reviewer: [id number] Initial Review Date: 04/30/2018 Generated: 05/14/18 12:10 pm Comments DCP- Discharge Planning Updated by [email or web address]: Satish Forbes on 05/14/18 10:[address] Patient Name: CANDACE HYDE Encounter No: [id number] : 1950 Primary Insurance: MEDICARE A & B Anticipated DC Date: 05-14-2018 Planned Disposition: Senior Care Facility External Planned Provider: [facility], MEDICARE REHAB BED DCP follow-up note: CM SPOKE TO DAVID OF [facility] LATE 05-13-18, WAS ADVISED THAT PT HAS OUTPATIENT DIALYSIS CLINIC ASSIGNMENT OF [facility], MWF, 1130AM. CM INFORMED [facility] AT [phone]. CM FAXED UPDATE TO [facility] ON 05-14-18 FOR REHAB ADMISSION CONSIDERATION. CM WAITING ADMISSION DETERMINATION FROM [facility] FOR REHAB. Satish Forbes, CASE MANAGEMENT Appended by Satish Forbes on 05/14/2018 11:09 CURTAIN ROLLER ASSEMBLER: SUKUMAR REVIEWED CHART, DR. CRUMP'S NOTE INDICATES PT MAY BE APPROPRIATE FOR INPATIENT REHAB. CM SPOKE TO KAREN LINDA, ORDER OBTAINED. CM INFORMED BEDSIDE NURSE. CM SPOKE TO PT IN ROOM, DISCUSSED INPATIENT REHAB AND PENITENTIARY REHAB. PT IS NOT OPPOSED TO BEING CONSIDERED FOR INPATIENT REHAB, BUT IS CONCERNED THAT IT MAY BE "TOO MUCH" FOR HER AND MAY PREFER TO [facility] WHERE SHE WOULD HAVE LONGER TIME TO STAY AND WORK ON GETTING STRONGER. PT ASKED THAT CM CALL HER DAMONUGHER, ABRAN GRAHAM, , AND DO WHAT ABRAN WANTS. IMPORTANT MESSAGE FROM MEDICARE PROVIDED AND DISCUSSED. CM CALLED ABRAN, DISCUSSED ABOVE INFORMATION. ABRAN REPORTS [facility], BUT DID WELL ONCE SHE GOT THERE. ABRAN WANTS TO DO WHAT DR BIGGS THINKS BEST; ABRAN ASKED THAT [facility] CONTINUE TO CONSIDER PT AND THAT PT BE EVALUATED FOR INPATIENT REHAB AT [facility]. ABRAN WOULD PERFER INPATIENT REHAB AT [facility] FIRST AND THEN [facility] IF DECLINED BY INPATIENT REHAB. CM SPOKE TO BILLY OF INPATIENT REHAB AT [facility], NOTIFED OF REFERRAL FOR INPATIENT REHAB. DAVID OF [facility] NOTIFIED. CM WAITING PRESCREENING AND ADMISSION DETEMINATION FROM INPATIENT REHAB AT [facility]. CM WAITING [facility] SATISH FORBES CASE MANAGEMENT DCP- Discharge Planning Updated by [id number]: Satish Forbes on 05/12/18 8:[address] Patient Name: CANDACE HYDE Encounter No: [id number] : 1950 Primary Insurance: MEDICARE A & B Anticipated DC Date: 05-12-2018 Planned Disposition: Senior Care Facility External Planned Provider: [facility], MEDICARE REHAB BED DCP follow-up note: CM FAXED REFERRAL UPDATE [facility]AB [facility] AT [phone]. CM WAITING OUTPATIENT DIALYSIS SCHEDULE WELL ADMISSION DETERMINATION FROM [facility]. Satish Forbes CASE ALEXANDER DCP- Discharge Planning Updated by [id number]: Satish Forbes on 05/08/18 3:[address] Patient Name: CANDACE Robbins SAMPLES Encounter No: [id number] : 1950 Primary Insurance: MEDICARE A & B Anticipated DC Date: 05-12-2018 Planned Disposition: Senior Care [facility] External Planned Provider: [facility], MEDICARE REHAB BED DCP follow-up note: CM RECEIVED ORDER FOR REHAB SERVICES AND OUTPATIENT DIALYSIS CLINIC ARRANGEMENT. CM SPOKE TO DAVID OF [facility] WHO IS WORKING ON DIALYSIS CLINIC PLACEMENT. CM SPOKE TO PT IN ROOM, DISCUSSED REHAB OPTIONS AND LOCATIONS. PT TOO LOW FUNCTIONING FOR INPATIENT REHAB. PT SIGNED CHO[facility]. IMPORTANT MESSAGE FROM MEDICARE PROVIDED AND EXPLAINED. CM CALLED [facility], SPOKE TO SHAYAN WHO ADVISED THEY CANNOT ACCEPT PT ON DIALYSIS. CM NOTIFIED [facility] OF [facility], , OF REHAB REFERRAL. CM FAXED REFERRAL FOR [facility]HAB TO [facility] AT [phone]. CM WAITING OUTPATIENT DIALYSIS SCHEDULE WELL ADMISSION DETERMINATION FROM [facility]. Satish Forbes, CASE MANAGEMENT DCP- Discharge Planning Updated by [id number]: Stephie De Los Santos on 04/30/18 5:[address] Patient Name: CANDACE HYDE Admission Status: ER Accout number: [id number] Admission Date: 04-23-2018 : 1950 Admission Diagnosis:ACUTE ON CHRONIC SYSTOLIC (CONGESTIVE) HEART FAILURE Attending: VICTOR MANUEL REYNOSO Current LOS: 7 Anticipated DC Date: 05-04-2018 Planned Disposition: Home Primary Insurance: MEDICARE A & B Discharge Planning Comments: CM MET WITH PATIENT AND DAUGHTER (ROMERO) REGARDING D/C NEEDS AND PLANS. PATIENTS DAUGHTER STATED SHE WILL GO HOME WITH HER OR GO TO A REHAB. PATIENT WANTS TO SPEAK WITH DR. BIGGS AGAIN BEFORE SHE DECIDES IF SHE WANTS DIALYSIS OR NOT. PATIENTS PCP IS DR. LOZADA AND HER PHARMACY IS [facility]. TIANNAT STATED SHE HAS A GLUCOMETER, IFEOMA RENNER COMMODE AT HOME. PATIENT CHOSE TO BE A DNR TODAY PER DR. PARRA NOTE. CM WILL CONTINUE TO FOLLOW PATIENT WITH D/C NEEDS AND PLANS. PCP DR[facility] [address] (PHARMACY) ROMERO (DAUGHTER) [phone] Galvanizer: Stephie De Los Santos DCPIA - Discharge Planning Initial Assessment Updated by [id number]: Stephie De Los Santos on 04/30/18 6:37 pm * Is the patient Alert and Oriented? Yes * How many steps to enter\\exit or inside your home? * PCP DR. LOZADA * Pharmacy [facility] [address] * Preadmission Environment Home with Family * ADLs Partial Dependent * Partial ADLs (Assistance needed) Bathing Dressing Medication Management Toileting * Equipment Bedside Commode Glucometer Walker * List name and contact numbers for known caregivers / representatives who currently or will assist patient after discharge: ROMERO FITZGERALD (DAUGHTER) [phone] * Verbal permission to speak to the caregivers and representatives has been obtained from the patient. Yes * Community resources currently utilized None * Additional services required to return to the preadmission environment? Yes * Can the patient safely return to the preadmission environment? Yes * Has this patient been hospitalized within the prior 30 days at any hospital? Yes Coverage Notice Reviewer: [id number] John Forbes Notice Issued Date-Time: 05/08/2018 11:20 Notice Type: Patient Choice Letter Notice Delivered To: Patient Relationship to Patient: Lineman Service Or Work Dispatcher Name: Delivery Method: HAND - Hand Delivered Laney Days: Prior Verbal Notification: Recipient Understood Notice: Yes Recipient Signature: Yes Med Rec Note Co-signed by Attending: Coverage Notice Comment: 1 - KAVITHAANDRÉSFERDINAND, 2 - ABEL RODRIGUES Reviewer: [id number] John Forbes Notice Issued Date-Time: 05/08/2018 11:20 Notice Type: IM Discharge Notice Notice Delivered To: Patient Relationship to Patient: Lineman Service Or Work Dispatcher Name: Delivery Method: HAND - Hand Delivered Laney Days: Prior Verbal Notification: Recipient Understood Notice: Yes Recipient Signature: Yes Med Rec Note Co-signed by Attending: Coverage Notice Comment: Last DP export: 05/14/18 8:28 a Patient Name: CANDACE HYDE Page 12282 at 1110 All edits/amendments must be made on the electronic document DICTATION DATE: 05/14/181108 SAND OPERATOR: BONNIE 05/14/181108 RPT#: [id number] DC DATE: STATUS: ADM IN [facility] [address] [place] [address] END OF REPORT
--- NOTE | 2018-05-14 11:39 | NUR ---
AM MEDICATIONS ADMINISTERED. PREVIOUS PIV INFILTRATED. REMOVED PIV WITH CATHETER TIP FULLY INTACT. INITIATED NEW PIV IN R.WRIST 22 GA X1 ATTEMPT. FLUSHED WITH 10ML OF NS. PT TOLERATED WELL. WILL CTM.
[2018-05-14 12:04] VITALS: BP 128/70
--- NOTE | 2018-05-14 14:24 | MORECARE ---
CASE MANAGEMENT DISCHARGE SUMMARY PATIENT: CANDACE HYDE UNIT: [id number] ADM DATE: 04/23/18 AGE: 68 : [birth year] SEX: F ROOM/BED: D.2201 AUTHOR: EDDIE,DOC PHYSICIAN: REFERRING PHYSICIAN: VICTOR MANUEL REYNOSO MD DATE OF SERVICE: 05/14/18 Discharge Plan Patient Name: CANDACE HYDE Facility: [facility]:[place] : 1950 Planned Disposition: [facility] Facility Anticipated Discharge Date: 05/15/18 Discharge Date: Expected LOS: 22 Initial Reviewer: [id number] Initial Review Date: 04/30/2018 Generated: 05/14/18 3:24 pm Comments DCP- Discharge Planning Updated by [id number]: Satish Forbes on 05/14/18 1:[address] Patient Name: CANDACE HYDE Encounter No: [id number] : 1950 Primary Insurance: MEDICARE A & B Anticipated DC Date: 05-14-2018 Planned Disposition: [facility] Facility External Planned Provider: [facility], MEDICARE REHAB BED DCP follow-up note: CM SPOKE TO DAVID OF [facility] LATE 05-13-18, WAS ADVISED THAT PT HAS OUTPATIENT DIALYSIS CLINIC ASSIGNMENT OF [facility], MWF, 1130AM. CM INFORMED [facility] AT [phone]. CM FAXED UPDATE TO [facility] ON 05-14-18 FOR REHAB ADMISSION CONSIDERATION. CM WAITING ADMISSION DETERMINATION FROM [facility] FOR REHAB. Satish Forbes, CASE MANAGEMENT Appended by Satish Forbes on 05/14/2018 11:09 KNOT CUTTER: SUKUMAR REVIEWED CHART, DR. CRUMP'S NOTE INDICATES PT MAY BE APPROPRIATE FOR INPATIENT REHAB. CM SPOKE TO KAREN LINDA, ORDER OBTAINED. CM INFORMED BEDSIDE NURSE. CM SPOKE TO PT IN ROOM, DISCUSSED INPATIENT REHAB AND [facility] REHAB. PT IS NOT OPPOSED TO BEING CONSIDERED FOR INPATIENT REHAB, BUT IS CONCERNED THAT IT MAY BE "TOO MUCH" FOR HER AND MAY PREFER TO GO TO [facility] WHERE SHE WOULD HAVE LONGER TIME TO STAY AND WORK ON GETTING STRONGER. PT ASKED THAT CM CALL HER DAMONUGHER, ABRAN GRAHAM, , AND DO WHAT ABRAN WANTS. IMPORTANT MESSAGE FROM MEDICARE PROVIDED AND DISCUSSED. CM CALLED ABRAN, DISCUSSED ABOVE INFORMATION. ABRAN REPORTS [facility], BUT DID WELL ONCE SHE GOT THERE. ABRAN WANTS TO DO WHAT DR BIGGS THINKS BEST; ABRAN ASKED THAT [facility] CONTINUE TO CONSIDER PT AND THAT PT BE EVALUATED FOR INPATIENT REHAB AT [place]. ABRAN WOULD PERFER INPATIENT REHAB AT [place] FIRST AND THEN [facility] IF DECLINED BY INPATIENT REHAB. CM SPOKE TO BILLY OF INPATIENT REHAB AT [place], NOTIFED OF REFERRAL FOR INPATIENT REHAB. DAVID OF [facility] NOTIFIED. CM WAITING PRESCREENING AND ADMISSION DETEMINATION FROM INPATIENT REHAB AT [place]. CM WAITING ADMISSION DETERMINATION FROM [facility]. SATISH FORBES, CASE MANAGEMENT Appended by Satish Forbes on 05/14/2018 14:18 KNOT CUTTER: CM RECEIVED CALL FROM VESNA OF [facility], , [facility] TO ACCEPT PT FOR REHAB AT DISCHARGE. CM WAITING PRESCREENING AND ADMISSION DETEMINATION FROM INPATIENT REHAB AT [place]. [facility] WILL ACCEPT FOR REHAB AT DISCHARGE. MILEY ANDERSON DCP- Discharge Planning Updated by [id number]: Satish Forbes on 05/12/18 8:[address] Patient Name: CANDACE HYDE Encounter No: [id number] : 1950 Primary Insurance: MEDICARE A & B Anticipated DC Date: 05-12-2018 Planned Disposition: [facility] Facility External Planned Provider: [facility], MEDICARE REHAB BED DCP follow-up note: CM FAXED REFERRAL UPDATE FOR REHAB TO [facility]IA [facility] AT [phone]. CM WAITING OUTPATIENT DIALYSIS SCHEDULE WELL ADMISSION DETERMINATION FROM [facility] FOR REHAB. MILEY Anderson DCP- Discharge Planning Updated by [id number]: Satish Forbes on 05/08/18 3:[address] Patient Name: CANDACE HYDE Encounter No: [id number] : 1950 Primary Insurance: MEDICARE A & B Anticipated DC Date: 05-12-2018 Planned Disposition: [facility] Facility External Planned Provider: [facility], MEDICARE REHAB BED DCP follow-up note: CM RECEIVED ORDER FOR REHAB SERVICES AND OUTPATIENT DIALYSIS CLINIC ARRANGEMENT. CM SPOKE TO DAVID OF [facility] WHO IS WORKING ON DIALYSIS CLINIC PLACEMENT. CM SPOKE TO PT IN ROOM, DISCUSSED REHAB OPTIONS AND LOCATIONS. PT TOO LOW FUNCTIONING FOR INPATIENT REHAB. PT SIGNED CHOICE FOR [facility] OR [facility]. IMPORTANT MESSAGE FROM MEDICARE PROVIDED AND EXPLAINED. CM CALLED [facility], SPOKE TO SHAYAN WHO ADVISED THEY CANNOT ACCEPT PT ON DIALYSIS. CM NOTIFIED VESNA OF [facility], , OF REHAB REFERRAL. CM FAXED REFERRAL FOR REHAB TO [facility] VIA [facility] AT [phone]. CM WAITING OUTPATIENT DIALYSIS SCHEDULE WELL ADMISSION DETERMINATION FROM [facility] FOR REHAB. Satish Forbes, CASE MANAGEMENT DCP- Discharge Planning Updated by [id number]: Stephie De Los Santos on 04/30/18 5:[address] Patient Name: CANDACE HYDE Admission Status: ER Accout number: [id number] Admission Date: 04-23-2018 : 1950 Admission Diagnosis:ACUTE ON CHRONIC SYSTOLIC (CONGESTIVE) HEART FAILURE Attending: VICTOR MANUEL REYNOSO Current LOS: 7 Anticipated DC Date: 05-04-2018 Planned Disposition: Home Primary Insurance: MEDICARE A & B Discharge Planning Comments: CM MET WITH PATIENT AND DAUGHTER (ROMERO) REGARDING D/C NEEDS AND PLANS. PATIENTS DAUGHTER STATED SHE WILL GO HOME WITH HER OR GO TO A REHAB. PATIENT WANTS TO SPEAK WITH DR. BIGGS AGAIN BEFORE SHE DECIDES IF SHE WANTS DIALYSIS OR NOT. PATIENTS PCP IS DR. LOZADA AND HER PHARMACY IS [facility]. TIANNAT STATED SHE HAS A GLUCOMETER, WALKER, BS COMMODE AT HOME. PATIENT CHOSE TO BE A DNR TODAY PER DR. PARRA NOTE. CM WILL CONTINUE TO FOLLOW PATIENT WITH D/C NEEDS AND PLANS. PCP DR[facility] [address] (PHARMACY) ROMERO (DAUGHTER) [phone] Coal Drier Operator: Stephie De Los Santos DCPIA - Discharge Planning Initial Assessment Updated by [id number]: Stephie De Los Santos on 04/30/18 6:37 pm * Is the patient Alert and Oriented? Yes * How many steps to enter\\exit or inside your home? * PCP DR. LOZADA * Pharmacy [facility] [address] * Preadmission Environment Home with Family * ADLs Partial Dependent * Partial ADLs (Assistance needed) Bathing Dressing Medication Management Toileting * Equipment Bedside Commode Glucometer Walker * List name and contact numbers for known caregivers / representatives who currently or will assist patient after discharge: ROMERO FITZGERALD (DAUGHTER) [phone] * Verbal permission to speak to the caregivers and representatives has been obtained from the patient. Yes * Community resources currently utilized None * Additional services required to return to the preadmission environment? Yes * Can the patient safely return to the preadmission environment? Yes * Has this patient been hospitalized within the prior 30 days at any hospital? Yes Coverage Notice Reviewer: [id number] Forbes Notice Issued Date-Time: 05/08/2018 11:20 Notice Type: Patient Choice Letter Notice Delivered To: Patient Relationship to Patient: Hydroelectric Machinery Mechanic Name: Delivery Method: HAND - Hand Delivered Laney Days: Prior Verbal Notification: Recipient Understood Notice: Yes Recipient Signature: Yes Med Rec Note Co-signed by Attending: Coverage Notice Comment: 1 - NIYA, 2 - ABEL RODRIGUES Reviewer: RAFAEL Forbes Notice Issued Date-Time: 05/08/2018 11:20 Notice Type: IM Discharge Notice Notice Delivered To: Patient Relationship to Patient: Hydroelectric Machinery Mechanic Name: Delivery Method: HAND - Hand Delivered Laney Days: Prior Verbal Notification: Recipient Understood Notice: Yes Recipient Signature: Yes Med Rec Note Co-signed by Attending: Coverage Notice Comment: Reviewer: RAFAEL Forbes Notice Issued Date-Time: 05/14/2018 10:20 Notice Type: IM Discharge Notice Notice Delivered To: Patient Relationship to Patient: Hydroelectric Machinery Mechanic Name: Delivery Method: HAND - Hand Delivered Laney Days: Prior Verbal Notification: Recipient Understood Notice: Yes Recipient Signature: Yes Med Rec Note Co-signed by Attending: Coverage Notice Comment: Last DP export: 05/14/18 10:10 a Patient Name: CANDACE HYDE Page [id number] at 1424 All edits/amendments must be made on the electronic document DICTATION DATE: 05/14/181422 BILLET STRAIGHTENER: BONNIE 05/14/18 142 RPT#: [id number] DC DATE: STATUS: ADM IN [facility] [address] [place] [address] END OF REPORT
[2018-05-14 16:41] VITALS: BP 131/64
--- NOTE | 2018-05-14 19:40 | NUR ---
RESUMING CARE. PT LAYING IN BED RECIEVING DIALYSIS, ON 4L O2 NC, IV RT WRIST SL LEFT CHEST HEMOSPLIT NO C/O PAIN OR DISTRESS AT THIS TIME CALL LIGHT IN REACH WILL CONT TO MONITOR
--- NOTE | 2018-05-14 19:50 | NUR ---
PT HEMTARUN HARO FULL OF BLOOD DIALYSIS NURSE STILL IN ROOM , ASKED HER IF SHE WOULD CHANGE DRESSING AFTER PT IS DONE SHE STATED SHE WOULD NOT HAVE TIME
[2018-05-14 20:41] VITALS: BP 188/62
[2018-05-15] VITALS (9 sets, daily range): BP systolic 116–143; BP diastolic 38–63
[2018-05-15 06:16] LABS: BASOPHILS 0.5 % (0-2); EOSINOPHILS 5.6 % (0-7); HEMATOCRIT 29.6 % (36.0-48.0); HEMOGLOBIN 9.4 g/dL (12-16); IMMATURE GRANULOCYTES 0.2 % (0-5); LYMPHOCYTES 6.8 % (15-50); MCH 29.6 pg (26.0-34.0); MCHC 31.8 g/dL (31.0-37.0); MCV 93.1 fL (80.0-100.0); MEAN PLATELET VOLUME 12.7 fL (7.4-10.4); MONOCYTES 17.8 % (2-11); NEUTROPHILS 69.1 % (40-80); PLATELET COUNT 281 10x3/uL (130-400); RBC 3.18 10x6/uL (4.00-5.40); WBC 9.2 10x3/uL (4.8-10.8)
[2018-05-15 06:20] LABS: APTT 30.9 SECONDS (22.8-39.4); INR 1.25 (0.85-1.17); PROTIME 15.2 SECONDS (11.6-15.0)
[2018-05-15 06:40] LABS: ALBUMIN 3.9 g/dL (3.4-5.0); ANION GAP 17.4 mmol/L (8-16); BILIRUBIN - TOTAL 1.99 mg/dL (0.2-1.3); CALCIUM 9.2 mg/dL (8.5-10.1); CARBON DIOXIDE 27.9 mmol/L (21.0-32.0); CREATININE - SERUM 2.9 mg/dL (0.6-1.3); POTASSIUM - SERUM 3.3 mmol/L (3.5-5.1); PROTEIN - SERUM 7.2 g/dL (6.4-8.2)
--- NOTE | 2018-05-15 06:56 | NUR ---
CHANGED HEMOSPLIT DRESSING CDI
--- NOTE | 2018-05-15 08:33 | NUR ---
PT FOR THORACENTESIS AT THIS TIME.
--- NOTE | 2018-05-15 09:46 | NUR ---
SPOKE WITH JACK BAILEY AND ASKED HER IF THEY WANTED TO FLUID FROM THE THORACENTESIS TESTED, AND JACK STATED NO, THEY ONLY WANTED THE PROCEDURE DONE.
--- NOTE | 2018-05-15 10:05 | NUR ---
RECEIVED PT BACK TO ROOM 213, VITAL SIGNS STABLE, PLACED PT ON FREQUENT VITAL SIGNS. DRESSING NOTED TO RT FLANK AREA, DRESSING WITH A LITTLE BLOOD. AM MEDS GIVEN AT THIS TIME. ALSO GAVE 40MEQ OF K FOR LOW K OF 3.3. PT DENIES ANY NEEDS AT THIS TIME. CALL LIGHT IN REACH,NAD NOTED, WILL CONTINUE TO MONITOR.
--- NOTE | 2018-05-15 11:31 | NUR ---
Rehab Note- Acute Inpatient Rehab prescreen order received. The patient had a thoracentisis done today with 1700cc out. Will follow to see how she does with PT d/t hasn't been seen the past couple of days, suggest OT Eval also. Voicemail left for SUKUMAR Maya and will continue to try to discuss with PT. Thank you for this referral! Karen Jones RN Clinical Liaison, [facility] Rehab
--- NOTE | 2018-05-15 15:50 | NUR ---
OT NOTE: PT COMPLETED SIMPLE GROOMING TASK WITH MIL Fox. PT COMPLETED BED MOB WITH RENETTA Fox. THANK YOU, LUKE MATHEWS
--- NOTE | 2018-05-15 19:35 | NUR ---
RESUMED CARE OF PT, LYING IN BED RESPIRATIONS EVEN AND UNLABORED ON 2LPM VIA NC. RIGHT WRIST SALINE LOCKED. 73 CAF ON TELEMETRY. MCCARTHY TO GRAVITY. REPOSITIONED FOR COMFORT. NO FURTHER NEEDS AT THIS TIME. CALL LIGHT IN REACH. SEE NURSE ASSESSMENT.
[2018-05-16] VITALS: BP 123/71
--- NOTE | 2018-05-16 03:01 | NUR ---
LYING IN BED, CALL LIGHT IN REACH. WILL CONTINUE WITH PLAN OF CARE. 72 SR ON TELEMETRY
[2018-05-16 08:14] VITALS: BP 143/53
--- NOTE | 2018-05-16 08:37 | NUR ---
0730-ROUNDING DONE WITH PATIENT SEEN IN CONTACT ISOLATION FOR VREN URINE. MCCARTHY CATH SEEN WITH DARK URINE. DNR CODE STATUS. RIGHT WRIST PIV SEEN WITH SALINE LOCK. LEFT HEMIPLIT SEEN WITH C/D/I DRESSING. ON EP, LAB VALUES ARE NOT BACK YET. OBESE. PACEMAKER SEEN TO LEFT, PACED ON HEART MONITOR , HR 79.
--- NOTE | 2018-05-16 09:33 | NUR ---
DR BIGGS HERE TO SEE PATIENT.
[2018-05-16 10:01] LABS: ALBUMIN 4.1 g/dL (3.4-5.0); BILIRUBIN - TOTAL 1.84 mg/dL (0.2-1.3); CALCIUM 9.5 mg/dL (8.5-10.1); CARBON DIOXIDE 26.3 mmol/L (21.0-32.0); POTASSIUM - SERUM 4.3 mmol/L (3.5-5.1); PROTEIN - SERUM 7.2 g/dL (6.4-8.2)
[2018-05-16 10:02] LABS: CREATININE - SERUM 4.1 mg/dL (0.6-1.3)
[2018-05-16 11:41] VITALS: BP 126/55
--- NOTE | 2018-05-16 13:14 | NUR ---
Nutrition follow-up: Diet: ADA consistent CHO PO intake ~25% of meals Pt s/p thoracentesis with 1700 cc out +BM Wt: 238# PO intake remains poor. Will continue to encourage increased po intake and honor food preferences. RDN following.
--- NOTE | 2018-05-16 13:25 | NUR ---
OT NOTE: PRACTICED BED MOB WITH MOD/MAX ASSIST FOR ROLLING SIDE TO SIDE; MAX ASSIST FOR SUPINE TO SIT; MIN/SBA FOR STATIC SITTING. SIMPLE GROOMING WITH SET UP; ATTEMPTED STANDING WITH MAX ASSIST X 2 X 3 ATTEMPS. UNABLE TO TAKE STEP, HOWEVER, ON LAST TRIAL, PT WAS ABLE TO STAND APPROX 45 SECONDS. PT THEN STATED THAT SHE FELT VERY NAUSEATED. ASSISTED PT BACK TO BED. CLEANED PERINEAL AREA AND PROVIDED CLEAN PAD. LISA SAUCEDO, OTR/L
--- NOTE | 2018-05-16 14:21 | NUR ---
REHAB PRESCREENING Ms. Wright is a good candidate for IRF. I will begin her paper screen and notify case management when approvals are in place. She will then be ready for admission to rehab if her physician feels she is appropriate for discharge. Thank you for this referral! Shanice Mullins, OCC THERAPIST Rehab [facility]
[2018-05-16 15:04] VITALS: BP 131/58
[2018-05-16] MEDS ORDERED: Levaquin PREMIX IV (15:19)
[2018-05-16] MEDS ORDERED: ALBUMINAR-25100 ML IV ×2 (15:19)
--- NOTE | 2018-05-16 15:19 | NUR ---
DENIES NEEDS AT THIS TIME. WILL CONTINUE TO FOLLOW AND ASSESS OFTEN. STILL IN CONTACT ISOLATION.
[2018-05-16] MEDS ORDERED: HEPARIN SO1000 UNIT/ IV (15:20)
[2018-05-16] MEDS ORDERED: HEPARIN SO1000 UNIT/ INJ (15:20)
[2018-05-16] MEDS ORDERED: DESERYL50 M2 PO (15:21)
[2018-05-16] MEDS ORDERED: Wellbutrin PO (15:21)
[2018-05-16] MEDS ORDERED: PROTONIX40 MG PO (15:22)
[2018-05-16] MEDS ORDERED: BENZONATATE200 MG PO (15:22)
[2018-05-16] MEDS ORDERED: MUCINEX600 MG PO (15:22)
[2018-05-16] MEDS ORDERED: MELATONIN 3 MG1 TAB PO (15:22)
--- NOTE | 2018-05-16 15:55 | MORECARE ---
CASE MANAGEMENT DISCHARGE SUMMARY PATIENT: CANDACE HYDE UNIT: [id number] ADM DATE: 04/23/18 AGE: 68 : [birth year] SEX: F ROOM/BED: D.3054 AUTHOR: LIUDMILA MORGAN PHYSICIAN: REFERRING PHYSICIAN: VICTOR MANUEL REYNOSO MD DATE OF SERVICE: 05/16/18 Discharge Plan Patient Name: CANDACE HYDE [facility] [facility] 1950 Planned Disposition: Inpatient Rehab Anticipated Discharge Date: 05/16/18 Discharge Date: Expected LOS: 23 Initial Reviewer: [id number] Initial Review Date: 04/30/2018 Generated: 05/16/18 4:55 pm Comments DCP- Discharge Planning Updated by [email or web address]: Satish Forbes on 05/16/18 2:[address] Patient Name: CANDACE HYDE Encounter No: [id number] : 1950 Primary Insurance: MEDICARE A & B Anticipated DC Date: 05-16-2018 Planned Disposition: Inpatient Rehab External Planned Provider: [facility] DCP follow-up note: CM SPOKE TO BILLY OF INPATIENT REHAB, THEY WILL ACCEPT PT TODAY FOR REHAB. PT NOTIFIED, IN AGREEMENT WITH DISCHARGE TO INPATIENT REHAB. CM ATTEMPTED TO CALL PT'S DAUGHTER, ABRAN, , PHONE WAS BUSY THREE SEPERATE TIMES. [facility] INPATIENT REHAB TO CONTACT MED 2 NURSE WITH ROOM NUMBER WHEN READY TO ACCEPT PT AND NURSE REPORT. Satish Forbes, CASE MANAGEMENT Appended by Satish Forbes on 05/16/2018 15:53 DANCE INSTRUCTOR: CM CALLED ROMERO FITZGERALD (DAUGHTER) [phone], NOTIFIED OF REHAB ACCEPTANCE BY [facility] INPATIENT RE[facility] FOR TODAY. [facility] INPATIENT REHAB TO CONTACT MED 2 NURSE WITH ROOM NUMBER WHEN READY TO ACCEPT PT AND NURSE REPORT. MILEY BELCHER DCP- Discharge Planning Updated by [id number]: Satish Forbes on 05/14/18 1:[address] Patient Name: CANDACE HYDE Encounter No: [id number] : 1950 Primary Insurance: MEDICARE A & B Anticipated DC Date: 05-14-2018 Planned Disposition: Care Home Facility External Planned Provider: [facility], MEDICARE REHAB BED DCP follow-up note: CM SPOKE TO DAVID OF [facility] LATE 05-13-18, WAS ADVISED THAT PT HAS OUTPATIENT DIALYSIS CLINIC [facility]IGN[facility], MWF, 1130AM. CM INFOR[facility] [phone]. CM FAXED UPDATE TO [facility] ON 05-14-18 FOR REHAB ADMISSION CONSIDERATION. CM WAITING ADMISSION DETERMINATION FROM [facility] FOR REHAB. Satish Forbes, CASE MANAGEMENT Appended by Satish Forbes on 05/14/2018 11:09 DANCE INSTRUCTOR: CM REVIEWED CHART, DR. CRUMP'S NOTE INDICATES PT MAY BE APPROPRIATE FOR INPATIENT REHAB. CM SPOKE TO KAREN LINDA, ORDER OBTAINED. CM INFORMED BEDSIDE NURSE. CM SPOKE TO PT IN ROOM, DISCUSSED INPATIENT REHAB AND RESIDENTIAL REHAB. PT IS NOT OPPOSED TO BEING CONSIDERED FOR INPATIENT REHAB, BUT IS CONCERNED THAT IT MAY BE "TOO MUCH" FOR HER AND MAY PREFER TO GO TO THE [facility] WHERE SHE WOULD HAVE LONGER TIME TO STAY AND WORK ON GETTING STRONGER. PT ASKED THAT CM CALL HER DAUGHER, ABRAN GRAHAM, , AND DO WHAT ABRAN WANTS. IMPORTANT MESSAGE FROM MEDICARE PROVIDED AND DISCUSSED. CM CALLED ABRAN, DISCUSSED ABOVE INFORMATION. ABRAN REPORTS [facility], BUT DID WELL ONCE SHE GOT THERE. ABRAN WANTS TO DO WHAT DR BIGGS THINKS BEST; ABRAN ASKED THAT THE [facility] CONTINUE TO CONSIDER PT AND THAT PT BE EVALUATED FOR INPATIENT REHAB AT [place]. ABRAN WOULD PERFER INPATIENT REHAB AT [place] FIRST AND THEN THE [facility] IF DECLINED BY INPATIENT REHAB. CM SPOKE TO BILLY OF INPATIENT REHAB AT [place], NOTIFED OF REFERRAL FOR INPATIENT REHAB. DAVID OF [facility] NOTIFIED. CM WAITING PRESCREENING AND ADMISSION DETEMINATION FROM INPATIENT REHAB AT [place]. CM WAITING ADMISSION DETERMINATION FROM [facility]. SATISH FORBES, CASE MANAGEMENT Appended by Satish Forbes on 05/14/2018 14:18 DANCE INSTRUCTOR: CM RECEIVED CALL FROM [facility], , [facility] TO ACCEPT PT FOR REHAB AT DISCHARGE. CM WAITING PRESCREENING AND ADMISSION DETEMINATION FROM INPATIENT REHAB AT [place]. [facility] WILL ACCEPT FOR REHAB AT DISCHARGE. MILEY BELCHER DCP- Discharge Planning Updated by [id number]: Satish Forbes on 05/12/18 8:[address] Patient Name: CANDACE HYDE Encounter No: [id number] : 1950 Primary Insurance: MEDICARE A & B Anticipated DC Date: 05-12-2018 Planned Disposition: Care Home Facility External Planned Provider: [facility], MEDICARE REHAB BED DCP follow-up note: CM FAXED REFERRAL UPDATE FOR REHAB TO [facility] VIA [facility] AT [phone]. CM WAITING OUTPATIENT DIALYSIS SCHEDULE WELL ADMISSION DETERMINATION FROM [facility] FOR REHAB. MILEY Belcher DCP- Discharge Planning Updated by [id number]: Satish Forbes on 05/08/18 3:[address] Patient Name: CANDACE HYDE Encounter No: [id number] : 1950 Primary Insurance: MEDICARE A & B Anticipated DC Date: 05-12-2018 Planned Disposition: Care Home Facility External Planned Provider: [facility], MEDICARE REHAB BED DCP follow-up note: CM RECEIVED ORDER FOR REHAB SERVICES AND OUTPATIENT DIALYSIS CLINIC ARRANGEMENT. CM SPOKE TO DAVID OF [facility] WHO IS WORKING ON DIALYSIS CLINIC PLACEMENT. CM SPOKE TO PT IN ROOM, DISCUSSED REHAB OPTIONS AND LOCATIONS. PT TOO LOW FUNCTIONING FOR INPATIENT REHAB. PT SIGNED CHOICE FOR [facility] OR [facility]. IMPORTANT MESSAGE FROM MEDICARE PROVIDED AND EXPLAINED. CM CALLED [facility], SPOKE TO SHAYAN WHO ADVISED THEY CANNOT ACCEPT PT ON DIALYSIS. CM NOTIFIED VESNA OF [facility], , OF REHAB REFERRAL. CM FAXED REFERRAL FOR REHAB TO [facility] VIA [facility] AT [phone]. CM WAITING OUTPATIENT DIALYSIS SCHEDULE WELL ADMISSION DETERMINATION FROM [facility] FOR REHAB. MILEY Belcher DCP- Discharge Planning Updated by [id number]: Stephie De Los Santos on 04/30/18 5:[address] Patient Name: CANDACE HYDE Admission Status: ER Accout number: [id number] Admission Date: 04-23-2018 : 1950 Admission Diagnosis:ACUTE ON CHRONIC SYSTOLIC (CONGESTIVE) HEART FAILURE Attending: VICTOR MANUEL REYNOSO Current LOS: 7 Anticipated DC Date: 05-04-2018 Planned Disposition: Home Primary Insurance: MEDICARE A & B Discharge Planning Comments: CM MET WITH PATIENT AND DAUGHTER (ROMERO) REGARDING D/C NEEDS AND PLANS. PATIENTS DAUGHTER STATED SHE WILL GO HOME WITH HER OR GO TO A REHAB. PATIENT WANTS TO SPEAK WITH DR. BIGGS AGAIN BEFORE SHE DECIDES IF SHE WANTS DIALYSIS OR NOT. PATIENTS PCP IS DR. LOZADA AND HER PHARMACY IS [facility] [address]. JOSE STATED SHE HAS A GLUCOMETER, WALKER, BS COMMODE AT HOME. PATIENT CHOSE TO BE A DNR TODAY PER DR. PARRA NOTE. CM WILL CONTINUE TO FOLLOW PATIENT WITH D/C NEEDS AND PLANS. PCP DR[facility] [address] (PHARMACY) ROMERO (DAUGHTER) [phone] Insurance Agency Manager: Stephie De Los Santos DCPIA - Discharge Planning Initial Assessment Updated by [id number]: Stephie De Los Santos on 04/30/18 6:37 pm * Is the patient Alert and Oriented? Yes * How many steps to enter\\exit or inside your home? * PCP DR. LOZADA * Pharmacy [facility] [address] * Preadmission Environment Home with Family * ADLs Partial Dependent * Partial ADLs (Assistance needed) Bathing Dressing Medication Management Toileting * Equipment Bedside Commode Glucometer Walker * List name and contact numbers for known caregivers / representatives who currently or will assist patient after discharge: ROMERO FITZGERALD (DAUGHTER) [phone] * Verbal permission to speak to the caregivers and representatives has been obtained from the patient. Yes * Community resources currently utilized None * Additional services required to return to the preadmission environment? Yes * Can the patient safely return to the preadmission environment? Yes * Has this patient been hospitalized within the prior 30 days at any hospital? Yes Coverage Notice Reviewer: [id number] John Forbes Notice Issued Date-Time: 05/08/2018 11:20 Notice Type: Patient Choice Letter Notice Delivered To: Patient Relationship to Patient: Chief Mechanical Officer Name: Delivery Method: HAND - Hand Delivered Laney Days: Prior Verbal Notification: Recipient Understood Notice: Yes Recipient Signature: Yes Med Rec Note Co-signed by Attending: Coverage Notice Comment: 1 - NIYA, 2 - ABEL RODRIGUES Reviewer: [id number] John Forbes Notice Issued Date-Time: 05/08/2018 11:20 Notice Type: IM Discharge Notice Notice Delivered To: Patient Relationship to Patient: Chief Mechanical Officer Name: Delivery Method: HAND - Hand Delivered Laney Days: Prior Verbal Notification: Recipient Understood Notice: Yes Recipient Signature: Yes Med Rec Note Co-signed by Attending: Coverage Notice Comment: Reviewer: [id number] John Forbes Notice Issued Date-Time: 05/14/2018 10:20 Notice Type: IM Discharge Notice Notice Delivered To: Patient Relationship to Patient: Chief Mechanical Officer Name: Delivery Method: HAND - Hand Delivered Laney Days: Prior Verbal Notification: Recipient Understood Notice: Yes Recipient Signature: Yes Med Rec Note Co-signed by Attending: Coverage Notice Comment: Last DP export: 05/14/18 1:24 p Patient Name: CANDACE HYDE Page [id number] at 1555 All edits/amendments must be made on the electronic document DICTATION DATE: 05/16/181554 SOUND RECORDIST: BONNIE 05/16/18 1558 RPT#: [id number] DC DATE: STATUS: ADM IN [facility] [address] [place] [address] END OF REPORT
--- NOTE | 2018-05-16 19:35 | NUR ---
REPORT CALLED TO BARI IN REHAB. ABRAN WITH DIALYSIS IS AT BEDSIDE FOR DIALYSIS THEN WILL DISCHARGE DOWNSTAIRS.
--- NOTE | 2018-05-17 00:28 | NUR ---
PT LEFT SHOULDER HEMESPLIT DRESSING SATURATED WITH BROWN AND BRIGHT RED BLOOD. PT DRESSING CHANGED BEFORE TRANSFER TO REHAB UNIT. PT DENIES ANY NEEDS OR PAIN AT THIS TIME. WILL CONTINUE TO MONITOR.
== END 2018-05-17 01:00 | DRG 291 ==
LOC: D.ER 15:35 → D.EDHOLD 18:25 → D.M2 18:25
PROVIDERS: Emergency Medicine; Family Medicine; Internal Medicine; Internal Medicine Nephrology; Radiology Vascular & Interventional Radiology; Surgery; ADMIT Internal Medicine Nephrology
PROC: B5181ZA Fluoroscopy of Superior Vena Cava using Low Osmolar Contrast, Guidance (ICD-10-PCS; 2018-05-02)
PROC: 5A1D70Z Performance of Urinary Filtration, Intermittent, Less than 6 Hours Per Day (ICD-10-PCS; 2018-05-02)
PROC: 02HV33Z Insertion of Infusion Device into Superior Vena Cava, Percutaneous Approach (ICD-10-PCS; principal; 2018-05-02 09:45)
PROC: 0W9G3ZZ Drainage of Peritoneal Cavity, Percutaneous Approach (ICD-10-PCS; 2018-05-15)
DX: I13.2 Hypertensive heart and chronic kidney disease with heart failure and with stage 5 chronic kidney disease, or end stage renal disease (principal); I50.23 Acute on chronic systolic (congestive) heart failure; N18.6 End stage renal disease; J18.9 Pneumonia, unspecified organism; N17.9 Acute kidney failure, unspecified; E87.1 Hypo-osmolality and hyponatremia; Z68.41 Body mass index [BMI] 40.0-44.9, adult; E11.22 Type 2 diabetes mellitus with diabetic chronic kidney disease; I48.91 Unspecified atrial fibrillation; F32.9 Major depressive disorder, single episode, unspecified; Z66 Do not resuscitate; I25.10 Atherosclerotic heart disease of native coronary artery without angina pectoris; E78.5 Hyperlipidemia, unspecified; D64.9 Anemia, unspecified; R74.8 Abnormal levels of other serum enzymes; E66.01 Morbid (severe) obesity due to excess calories; N95.0 Postmenopausal bleeding; Z95.0 Presence of cardiac pacemaker

== ENCOUNTER 2018-05-17 01:16 | Inpatient (IN) | payer MEDICARE, OTHER ==
[~2018-05-17] VITALS: Ht 172.7 cm; Wt 113.4 kg
[~2018-05-17 01:16] MED LIST: ALBUMINAR-25100 ML IV; ATIVAN1 MG PO; BENZONATATE200 MG PO; CALCIUM 600 +1 EAC3 PO; CATAPRES0.2 MG PO; CITRACAL + D E1 EACH PO; DESERYL50 M2 PO; FUROSEMIDE40 MG PO; HEPARIN SO1000 UNIT/ INJ; HEPARIN SO1000 UNIT/ IV; LEVOXYL200 MCG PO; LOW DOSE ASPIRI81 M1 PO; Levaquin PREMIX IV; MELATONIN 3 MG1 TAB PO; MUCINEX600 MG PO; NITROQUICK0.4 MG SL; NORCO 10-325 TA1 TAB PO; PROTONIX40 MG PO; PROZAC20 MG PO; SIMETHICON40 MG/0.6 PO; TENORMIN25 MG PO; TOUJEO SOL300 UNIT/1 SC; TYLENOL W/CODEI1 TAB PO; VITAMIN D5000 UNIT PO; Wellbutrin PO
[2018-05-17 01:48] VITALS: BP 149/64
[2018-05-17 02:15] VITALS: BP 149/64; BMI 38.1
--- NOTE | 2018-05-17 03:13 | NUR ---
ADMITTED TO 1110 WITH NOTED VRE OF URINE. DIALYSIS PATIENT WITH LEFT CHEST HEMISPLIT. MCCARTHY PRESENT ON ADMISSION WITH DARK NAYELI URINE. WOUND ON COCCYX. SCATTERED BRUISING NOTED ON ABDOMEN, ARMS AND CHEST. NOTED DIABETIC. ALERT AND ORIENTED. CALL LIGHT IN REACH.
--- NOTE | 2018-05-17 04:22 | NUR ---
MEPILEX DRESSING TO BUTTOCKS CHANGED DUE TO BEING SOILED. NOTED PRESSURE INJURIES ON BILATERAL BUTTOCKS WITH ESCHAR.
[2018-05-17 07:12] VITALS: BP 133/58
[2018-05-17 07:37] LABS: BASOPHILS 0.3 % (0-2); EOSINOPHILS 6.6 % (0-7); HEMATOCRIT 31.5 % (36.0-48.0); IMMATURE GRANULOCYTES 0.6 % (0-5); LYMPHOCYTES 7.8 % (15-50); MCH 29.3 pg (26.0-34.0); MCHC 31.7 g/dL (31.0-37.0); MCV 92.4 fL (80.0-100.0); MEAN PLATELET VOLUME 11.5 fL (7.4-10.4); MONOCYTES 14.1 % (2-11); NEUTROPHILS 70.6 % (40-80); PLATELET COUNT 238 10x3/uL (130-400); RBC 3.41 10x6/uL (4.00-5.40); WBC 10.7 10x3/uL (4.8-10.8)
[2018-05-17 07:54] LABS: ANION GAP 17.6 mmol/L (8-16); CARBON DIOXIDE 26.3 mmol/L (21.0-32.0); CREATININE - SERUM 4.4 mg/dL (0.6-1.3); POTASSIUM - SERUM 3.9 mmol/L (3.5-5.1)
--- NOTE | 2018-05-17 08:00 | NUR ---
PATIENT IS ALERT/ORIENT. SITTING UP IN BED TO EAT LUNCH. CALL LIGHT WITHIN REACH. VOICES NO NEEDS AT THIS TIME. WILL CONTINUE WITH PLAN OF CARE
[2018-05-17 09:08] VITALS: Ht 172.7 cm; Wt 113.4 kg
--- NOTE | 2018-05-17 10:20 | NUR ---
PATIENT IN REHAB ROOM. WORKING WITH PHYSICAL THERAPIST
[2018-05-17 11:37] VITALS: BP 132/62
--- NOTE | 2018-05-17 14:08 | NUR ---
PATIENT BACK IN BED AFTER THERAPY. TOTAL ASST OF TWO FROM WHEELCHAIR ONTO BED WITH SLIDING BOARD.
--- NOTE | 2018-05-17 17:04 | NUR ---
PRN BENADRYL GIVEN FOR ITCHING PER PATIENT REQUEST
--- NOTE | 2018-05-17 17:39 | NUR ---
PATIENT REAMINS IN CONTACT ISOLATION FOR VRE IN URINE. PATIENT HAS A MCCARTHY CATH
[2018-05-17 17:51] VITALS: BP 143/51
[2018-05-17 19:57] VITALS: BP 132/56
--- NOTE | 2018-05-17 19:58 | NUR ---
RESTING IN BED WITH NO DISTRESS NOTED. RESPIRATIONS UNLABORED. SALINE LOCK INTACT TO RIGHT WRIST WITH NO SIGNS OF INFILTRATION. MCCARTHY PATENT DRAINING DARK NAYELI URINE. TELEMETRY ON AND SHOWING PACING RHYTHM. HEMISPLIT TO LEFT UPPER CHEST INTACT. NOTED RIGHT BREAST REMAINS RED AND SWOLLEN. MILD GENERALIZED RASH. CALL LIGHT IN REACH.
[2018-05-18 00:03] VITALS: BP 130/60
--- NOTE | 2018-05-18 01:31 | NUR ---
RESTING IN BED WITH NO DISTRESS NOTED. FABIO PATENT. CALL LIGHT IN REACH.
[2018-05-18 06:30] VITALS: BP 108/43
--- NOTE | 2018-05-18 07:23 | NUR ---
RESTING QUIETLY IN BED. NO S/S DISTRESS. CALL LIGHT IN REACH. BED IN LOWEST POSITION.
--- NOTE | 2018-05-18 07:25 | NUR ---
RECEIVED REPORT. LYING IN BED HOB ELEVATED 45 DEGREES EYES CLOSED RESTING. DENIES ANY NEEDS OR PAIN. RR EVEN AND UNLABORED. MCCARTHY PATENT AND FREE OF KINKS. CONTINUES ON 2L VIA NC. CALL LIGHT WITHIN REACH, FALL PRECAUTIONS IN PLACE
[2018-05-18 10:00] VITALS: BP 126/66
[2018-05-18 12:15] VITALS: BP 128/68
--- NOTE | 2018-05-18 17:31 | NUR ---
DAUGHTER ASSISTED WITH PERSONAL HYGIENE CARE
[2018-05-18 17:59] VITALS: BP 144/58
--- NOTE | 2018-05-18 19:29 | NUR ---
AWAKE AND ALERT. RESTING IN BED. RESPIRATIONS UNLABORED. FABIO PATENT. COPNTACT ISOLATION IN PLACE. NO NEEDS VOICED. CALL LIGHT IN REACH.
[2018-05-18 21:06] VITALS: BP 145/56
[2018-05-19 00:42] VITALS: BP 145/60
--- NOTE | 2018-05-19 05:43 | NUR ---
QUIET HOURS. NO CHANGE IN CONDITION. FOELY PATENT. BLOOD SUGAR 77. JUICE GIVEN. ALERT AND ORIENTED. SKIN WARM AND DRY.
[2018-05-19 05:53] VITALS: BP 133/58
[2018-05-19 07:26] LABS: HEMATOCRIT 31.9 % (36.0-48.0); HEMOGLOBIN 10.4 g/dL (12-16); MCH 29.5 pg (26.0-34.0); MCHC 32.6 g/dL (31.0-37.0); MCV 90.6 fL (80.0-100.0); MEAN PLATELET VOLUME 11.8 fL (7.4-10.4); PLATELET COUNT 227 10x3/uL (130-400); RBC 3.52 10x6/uL (4.00-5.40); RDW 21.1 % (11.5-14.5); WBC 10.1 10x3/uL (4.8-10.8)
[2018-05-19 07:38] LABS: CALCIUM 10.1 mg/dL (8.5-10.1); CARBON DIOXIDE 25.2 mmol/L (21.0-32.0); CREATININE - SERUM 5.1 mg/dL (0.6-1.3); POTASSIUM - SERUM 4.2 mmol/L (3.5-5.1)
[2018-05-19 08:11] LABS: ANISOCYTOSIS OCC; EOSINOPHILS 7 % (0-7); LYMPHOCYTES 16 % (15-50); MONOCYTES 9 % (2-11); NEUTROPHILS 67 % (40-80); PLATELET ESTIMATE NORMAL
--- NOTE | 2018-05-19 10:44 | NUR ---
PATIENT AWAKE AND ALERT THIS MORNING. UP EARLY FOR THERAPY. NO COMPLAINTS AT THIS TIME. TOLERATED THERAPY WELL. WILL CONTINUE TO MONITOR.
[2018-05-19 12:05] VITALS: BP 132/64
[2018-05-19 18:00] VITALS: BP 124/66
--- NOTE | 2018-05-19 18:02 | NUR ---
PATIENT RECIEVED DIALYSIS IN HER ROOM. TOLERATED WELL. NOT EATING WELL TODAY. C/O LEG PAIN AND WAS MEDICATED WITH PRN NORCO. RESTING QUIETLY AT THIS TIME. WILL CONTINUE TO MONITOR.
--- NOTE | 2018-05-19 19:15 | NUR ---
INTRODUCED SELF TO PATIENT, PATIENT CONTINUES ON ISOLATION FOR VRE IN URINE. PATIENT REQUESTED APPLE JUICE WITH MED PASS. BED IN LOWEST POSITION, CALL LIGHT IN REACH.
--- NOTE | 2018-05-19 21:30 | NUR ---
2100 MEDS TAKEN W/O DIFFICULTY, FSBS 149, GAVE LANTUS PER ORDERS, NO FURTHER INSULIN REQUIRED PER SLIDING SCALE. BED IN LOWEST POSITION, CALL LIGHT WITHIN REACH.
[2018-05-19 21:44] VITALS: BP 134/70
[2018-05-20 00:23] VITALS: BP 149/64
[2018-05-20 06:54] VITALS: BP 120/49
--- NOTE | 2018-05-20 08:09 | NUR ---
ALERT AND ORIENTED.NO C/O PAIN. CL IN REACH.
[2018-05-20 08:12] VITALS: BP 131/52
[2018-05-20 12:15] VITALS: BP 132/58
--- NOTE | 2018-05-20 12:30 | NUR ---
SITTING IN CHAIR FOR LUNCH. NO C/O PAIN. CL IN REACH.
--- NOTE | 2018-05-20 12:38 | NUR ---
Nutrition Follow Up: Pt stated that her appetite was poor and she did not like the taste of the food. She said that since she has started dialysis food has not tasted the same to her. Pt agreed to try Glucerna. Food preferences noted. Encouraged pt to increase po intake as able to increase strength, promote healing, etc. Diet: ADA PO Intake: 12% meal avg BM: 05/19/18 Noted stage II to buttocks per nursing assmt Meds and labs reviewed Rec continue current diet. Will honor food preferences. Will send Glucerna BID. RD following.
--- NOTE | 2018-05-20 15:35 | NUR ---
MCCARTHY CATH DC'D PER ORDER AT THIS TIME. NO DIFFICULTY. 325CC NAYELI URINE IN MCCARTHY BAG.
[2018-05-20 16:44] VITALS: BP 135/66
--- NOTE | 2018-05-20 16:59 | NUR ---
SHOWER TODAY PER NURSING.
--- NOTE | 2018-05-20 17:55 | NUR ---
RESTING QUIETLY IN BED. NO CHANGE IN ASSESSMENT. PULLED UP IN BED AND REPOSITONED. NO C/O PAIN. CL IN REACH.
--- NOTE | 2018-05-20 19:25 | NUR ---
INTRODUCED SELF TO PATIENT, PATIENT WATCHING TV QUIETLY IN ROOM, ASKED IF SHE NEEDED ANYTHING, PATIENT DENIED. BED IN LOWEST POSITION, CALL LIGHT WITHIN REACH.
[2018-05-21] VITALS: BP 132/77
--- NOTE | 2018-05-21 00:19 | NUR ---
2100 MEDS TAKEN W/O DIFFICULTY, NO S/SX OF DISCOMFORT OR PAIN AT THIS TIME.
[2018-05-21 00:37] VITALS: BP 125/47
--- NOTE | 2018-05-21 02:14 | NUR ---
PATIENT REFUSED 0200 ABRIL STATES THAT IT CAUSED HER TO HAVE A RASH/HIVES LAST TIME THEY INFUSED IT WITH HER. DIDN'T WANT TO TAKE TODAY.
[2018-05-21 06:11] VITALS: BP 129/50
[2018-05-21 07:29] LABS: BASOPHILS 0.6 % (0-2); EOSINOPHILS 8.3 % (0-7); HEMATOCRIT 31.9 % (36.0-48.0); HEMOGLOBIN 10.2 g/dL (12-16); IMMATURE GRANULOCYTES 0.7 % (0-5); LYMPHOCYTES 7.8 % (15-50); MCH 29.5 pg (26.0-34.0); MCV 92.2 fL (80.0-100.0); MEAN PLATELET VOLUME 12.1 fL (7.4-10.4); MONOCYTES 15.9 % (2-11); NEUTROPHILS 66.7 % (40-80); PLATELET COUNT 232 10x3/uL (130-400); RBC 3.46 10x6/uL (4.00-5.40); RDW 20.9 % (11.5-14.5); WBC 12.1 10x3/uL (4.8-10.8)
[2018-05-21 07:46] LABS: ANION GAP 16.6 mmol/L (8-16); CALCIUM 9.8 mg/dL (8.5-10.1); CARBON DIOXIDE 25.8 mmol/L (21.0-32.0); CREATININE - SERUM 5.7 mg/dL (0.6-1.3); POTASSIUM - SERUM 4.4 mmol/L (3.5-5.1)
--- NOTE | 2018-05-21 09:00 | NUR ---
ALERT AND ORIENTED. NO C/O PAIN. CL IN REACH.
--- NOTE | 2018-05-21 11:40 | NUR ---
PARTICIPATING IN THERAPY. NO DISTRESS NOTED.
--- NOTE | 2018-05-21 15:21 | NUR ---
DIALYSIS STARTED PER DIALYSIS NURSE IN ROOM.
--- NOTE | 2018-05-21 16:34 | NUR ---
NAUSEA DURING DIALYSIS. NURSE IS STOPPING DIALYSIS.
--- NOTE | 2018-05-21 16:52 | NUR ---
STARTED TX ON PT AFTER ACCESSING HEMISPLIT. POOR DRAW FROM BOTH ARTERIAL AND VENIOUS SIGHT. LINES REVERSED. RAN TX JUST A FEW MINUTES BEFORE ARTERIAL PRESSURE ALARM SOUNDING AT -300. FLUSHED LINES WITH NS AND TRIED AGAIN. SAME RESULT. BFR WAS TO BE AT 300-400, HAD STARTED AT 200BFR AND DROPPED DOWN TO [address] BIGGS TO GET ORDER FOR ACTIVASE TO [place] IN LINES OVER NIGHT. PTS LABS ARE GOOD. K WITHIN LIMITS. PLACED 2.O, AND 2.1 CC IN LUMENS TO INDWELL OVERNIGHT. LUMENS TAPED AND MARKED "DO NOT USE". BLUE CAPS ON ENDS, AND DRESSING CHANGED.
[2018-05-21 19:00] VITALS: BP 139/56
--- NOTE | 2018-05-21 19:23 | NUR ---
AWAKE AND ALERT. RESTING IN BED. RESPIRATIONS UNLABORED. LEFT CHEST JOSE-SPLIT INTACT. O2/2L ON PER NASAL CANNULA. NO CURRENT C/O DISCOMFORT. CALL LIGHT IN REACH.
[2018-05-22 00:05] VITALS: BP 149/58
--- NOTE | 2018-05-22 00:41 | NUR ---
REPOSITIONED FOR COMFORT. INCONTIENCE CARE GIVEN. RESPIRATIONS UNLABORED. CALL LIGHT IN REACH.
--- NOTE | 2018-05-22 03:19 | NUR ---
RESTING IN BED WITH RESPIRATIONS UNLABORED. NO DISTRESS NOTED.
--- NOTE | 2018-05-22 05:43 | NUR ---
QUIET HOURS. RESPIRATIONS UNLABORED. NO CURRENT C/O DISCOMFORTS. NO DISTRESS NOTED. BS 190. WILL TREAT WITH SLIDING SCALE.
[2018-05-22 06:26] VITALS: BP 131/47
[2018-05-22 06:46] VITALS: BP 131/47
--- NOTE | 2018-05-22 07:35 | NUR ---
PATIENT REMAINS IN CONTACT ISOLATION. ALERT/ORIENT. CALL LIGHT WITHIN REACH. VOICES NO NEEDS AT THIS TIME. WILL CONTINUE WITH PLAN OF CARE
--- NOTE | 2018-05-22 08:32 | RHP ---
PATIENT: CANDACE HYDE MEDICAL RECORD: [id number] ACCOUNT: [id number] LOCATION:[facility]1110 : 49 ADMISSION DATE: 05/17/18 REHABILITATION HISTORY AND PHYSICAL EXAMINATION POST ADMISSION PHYSICIAN EXAMINATION DATE OF ADMISSION: 05/17/2018 ADMITTING DIAGNOSIS: Uremic induced myopathy. HISTORY OF PRESENT ILLNESS: The patient is admitted to inpatient rehab under uremic myopathy. She is a 68-year-old female patient with history of hyperlipidemia, coronary artery disease with stent placement, diabetes. She is on chronic AFib. She was actually on Eliquis for this, but had GI bleeding, chronic kidney disease, CHF. She came in with complaints of swelling in her legs and weakness. The patient's daughter states the patient was admitted to [facility] on 03/25/2018, secondary to weakness, frequent falls and a left hand cellulitis from possible cat-scratch disease on 04/01/2018. The patient was discharged to [facility] and then discharged home on 04/12/2018. She was found to be unresponsive, having orthostatic hypotension, was readmitted on 04/14/2018, and discharged home on 04/21/2018. The daughter tells that on 04/23/2018, the home health nurse recommended the patient return to the hospital secondary swelling in her legs. The patient was admitted on 04/23/2018 for further evaluation and treatment. She has got stage IV CHF with a left ventricular ejection fraction of 30%. She has got AFib, status post pacemaker placed. She has got worsening shortness of breath and anasarca. She has been continued on telemetry throughout her stay. She has got yandel dysfunction, status post pacemaker placement, AFib and CHF. She is followed by cardiology here in [facility], Dr. Bobo. She has had a long hospitalization with a month's stay in [facility] secondary to an ankle fracture and also VRE in her urine. On 05/07/2018, she did go into uncontrolled AFib with a rate of 110s during her acute stay. She had consults from nephrology, cardiology, interventional radiology. She had thoracentesis with 1700 cc drained. Her creatinine on admit was 5.1. She has plateaued in the 4s for the previous 5 days prior to admission here. She sees Dr. Trujillo, but had not seen a renal doctor in approximately 2 years, he left and actually moved to [place]. She has been on IV Lasix and Bumex, but her urine output is just not responded to this. She is on hemodialysis now Saturday, Saturday and Saturday. Her AFib is actually rate controlled now after having medications adjusted. She has had a vaginal duct discharged with a noted ultrasound that showed thickened endometrium and workup will be done on this after she leaves the hospital. She has been on IV antibiotics after status post her thoracentesis and she is now on p.o. antibiotics. Comorbidities with all that she has got done will require 24-hour nursing per rehab and management of a physician at least 3 out of [address] Christianson actually recommended inpatient rehabilitation because of her severe debility and higher chances of readmission because she just not been stable with her hemodialysis. BARRIERS TO DISCHARGE: Include self-care deficits, impaired mobility, bowel and bladder training, new-onset dialysis. Prior to these repeated hospitalizations, she was apparently completely independent, lived alone. She is mod-to-max assist with severe weakness, more proximal than distal. She is min-to-max assist with ADLs and require intensive therapy in order to return home at her prior level of functioning or at least close as possible. 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 PAST MEDICAL HISTORY: Significant for cataracts, thyroid problems, diabetes, CHF, atrial fib, arthritis, menopause, depression. PAST SURGICAL HISTORY: Includes a cardiac catheterization with stent placement, pacemaker placement and cataract surgery. ALLERGIES: UMER INHIBITORS, PENICILLIN, COMPAZINE, ELIQUIS, INVOKANA, CARVEDILOL AND METFORMIN. CURRENT MEDICATIONS: Include calcium carbonate 500 mg daily, Wellbutrin 75 mg daily, trazodone 50 mg at bedtime, Mylanta Gas-X as needed q.i.d., Protonix 40 mg daily, melatonin 6 mg at bedtime, Ativan 1 mg every 4 hours p.r.n., Synthroid 200 mcg daily, Levaquin 500 mg every 48 hours. She is on Lantus 40 units daily, [place] 1 tab every 4 to 6 hours of the 10/325. She is on Mucinex 600 mg b.i.d., Prozac 20 mg daily, vitamin D 5000 units daily, Tessalon Perles 200 mg t.i.d. p.r.n., aspirin 81 mg daily, Tylenol with codeine 1 tab every 4 to 6 hours as needed. HABITS: No alcohol or tobacco use. FAMILY HISTORY: Noncontributory. SOCIAL HISTORY: The patient hopes to return back home and get back to her prior level of functioning. REVIEW OF SYSTEMS: GENERAL: Does complain of weakness and fatigue. HEENT: Denies cold, cough, or congestion. CARDIOVASCULAR: Denies chest pain. PHYSICAL EXAMINATION: VITAL SIGNS: Stable, afebrile. GENERAL: A morbidly obese female, in no distress, alert upon exam. HEENT: Normocephalic and atraumatic. Mucosa moist. NECK: Supple. No lymphadenopathy. LUNGS: Clear at this time. HEART: Irregular rate and rhythm. ABDOMEN: Benign. EXTREMITIES: Does have noted peripheral edema. NEUROLOGIC: Does have noted weakness. LABORATORY DATA: Her white count is 10.7, H&H of 10 and 31 and platelet count is 238. Her sodium is 133, potassium 3.9, BUN and creatinine of 56 and 4.4 and blood sugar is noted to be 224. ASSESSMENT: This is a 68-year-old female patient who is admitted to rehab with a working diagnosis of uremic myopathy. The patient has potential to make improvement. We instituted the following multidisciplinary therapies include, but not limited to physical, occupational, respiratory, speech, nutritional services, prosthetics and orthotics. Given her complex medical condition and risk for more complications, rehabilitation services cannot be provided at a low HISTORY AND PHYSICAL [id number] [facility] level of care such as skilled nurse facility. PLAN: 1. Admit to [facility] for intensive inpatient therapy to include the following disciplines: A. Physical therapy to improve gait, all transfer skills and bed mobility to a modified independent level. B. Occupational therapy to a modified independent level. C. Case management to assist with discharge planning and placement options. D. Nutrition to assist with nutritional needs. E. Rehabilitation nursing to assist in monitoring the patient's underlying medical conditions and to assist with any type of bowel or bladder management. 2. The patient's current medication and medical care will be continued. 3. The patient will be placed on standard fall precautions. 4. We are going to have renal see her down here throughout her stay. 5. I am going to follow her up in the a.m. TRANSINT:[id number] Voice Confirmation ID: [id number] DOCUMENT ID: [id number] 05/20/2018 Edited for tata RIVAS. EVELYN notes whether there has been none or any medical/functional change since admission: - No change since preadmission screen. EVELYN attests patient continues to be appropriate for IRF: - Continues to be appropriate. DANIS LAMB MD at 0832 CC: [id number] DICTATION DATE: 05/17/18 1154 PHYSICAL THERAPIST: 05/17/18 1322 ADM IN [place] [id number] [place] [address]
--- NOTE | 2018-05-22 10:10 | NUR ---
PATIENT IN REHAB ROOM. WORKING WITH PHYSICAL THERAPIST. DENIES ANY PAIN/DISC AT THIS TIME.
[2018-05-22 12:00] VITALS: BP 112/49
--- NOTE | 2018-05-22 12:15 | NUR ---
CL IN REACH.
--- NOTE | 2018-05-22 16:04 | NUR ---
PATIENT INCONT OF URINE. WHEN ASKED BY THIS NURSE IF SHE WANT TO GO INTO THE BATHROOM, PATIENT STATES THAT SHE CAN NOT WALK. PATIENT HAS BEEN MAX ASST OF TWO. ABLE TO BEAR WEIGHT, BUT CAN'T MOVE LEGS ONCE SHE IS STANDING. HER LEGS WILL SOMETIME GIVE OUT ON HER WHEN SHE IS STANDING
[2018-05-22 18:00] VITALS: BP 152/64
--- NOTE | 2018-05-22 19:29 | NUR ---
RESTING IN BED. C/O SOME NAUSEA. EMESIS BAG GIVEN AND COOL WASHCLOTH FOR FACE. NO EMESIS AT THIS TIME. RESPIRATIONS UNLABORED. LEFT CHEST HEMISPLIT INTACT. RIGHT WRIST SALINE LOCK INTACT WITH NO SIGNS OF INFILTRATION. CALL LIGHT IN REACH.
[2018-05-23 00:05] VITALS: BP 138/67
--- NOTE | 2018-05-23 03:52 | NUR ---
RESTING IN BED WITH NO DISTRESS NOTED. RESPIRATIONS UNLABORED. CONTACT ISOLATION IN PLACE.
[2018-05-23 06:00] VITALS: BP 136/51
--- NOTE | 2018-05-23 07:25 | NUR ---
PATIENT REAMINS IN CONTACT ISOLATION. ALERT/ORIENT. CALL LIGHT WITHIN REACH. VOICES NO NEEDS AT THIS TIME. WILL CONTINUE WITH PLAN OF CARE
--- NOTE | 2018-05-23 10:06 | NUR ---
PATIENT IN REHAB ROOM. WORKING WITH PHYSICAL THERAPIST. DENIES ANY PAIN/DISC
[2018-05-23 10:37] LABS: ANION GAP 19.3 mmol/L (8-16); CALCIUM 9.7 mg/dL (8.5-10.1); CARBON DIOXIDE 23.2 mmol/L (21.0-32.0); CREATININE - SERUM 6.2 mg/dL (0.6-1.3); POTASSIUM - SERUM 4.5 mmol/L (3.5-5.1)
[2018-05-23 10:38] LABS: HEMATOCRIT 30.1 % (36.0-48.0); HEMOGLOBIN 9.9 g/dL (12-16); MCH 29.6 pg (26.0-34.0); MCHC 32.9 g/dL (31.0-37.0); MCV 89.9 fL (80.0-100.0); MEAN PLATELET VOLUME 11.9 fL (7.4-10.4); PLATELET COUNT 258 10x3/uL (130-400); RBC 3.35 10x6/uL (4.00-5.40); RDW 20.5 % (11.5-14.5); WBC 11.9 10x3/uL (4.8-10.8)
[2018-05-23 11:16] LABS: EOSINOPHILS 4 % (0-7); LYMPHOCYTES 19 % (15-50); MONOCYTES 12 % (2-11); NEUTROPHILS 65 % (40-80); PLATELET ESTIMATE NORMAL
[2018-05-23 12:06] VITALS: BP 126/62
--- NOTE | 2018-05-23 14:41 | NUR ---
WOUND NURSE INTO SEE PATIENT. CHANGED DRESSING TO COCCYX. ORDERED FIRST STEP MATTRESS FOR BED.
--- NOTE | 2018-05-23 15:47 | NUR ---
Pt has a scabbed area on the top of her right foot measuring 2cm x 1cm. It is in the process of healing. Left calf has a 12cm x 2cm dark scab which is drying out. It is beginning to heal. Left lateral heel has a 1cm x 1cm DTI which was first noted prior to her admission to rehab. It has improved. Right buttock (sacral area) there is a stage 3 pressure injury. The entire area measures 9cm x 10cm. It is not all one wound, the area was boxed and measured. Coccyx has a 1cm x 0.5cm deep tissue injury. Education/Instructions provided to pt about turning/repositioning off her bottom while in bed. She is able to turn side to side without assistance and she demonstrated the ability to do so. She also voiced her understanding. She asked for an air overlay mattress and one has been ordered for her, but she was reminded again that she will still need to reposition her self side to side off of her bottom in order for the wounds to begin healing. She again voiced her understanding. Recommendations: -Mepilex border dressings placed on right dorsal foot, left calf and left lateral heel for protction. -Calmoseptine cream applied to sacral/coccyx wounds twice a day and as needed with any incontinent episodes/personal care. -Overlay mattress -Turn/reposition every 2 hours while in bed (Pt may need to be reminded to do so). Wound care will continue monitoring.
--- NOTE | 2018-05-23 16:55 | NUR ---
GLUICOSE LEVEL 78. APPLE JUICE AND A PIECE OF POUND CAKE BROUGHT INTO PATIENT. ENTRY LEVEL BUYER HERE FOR DIALYSIS TREATMENT
[2018-05-23 18:12] VITALS: BP 129/50
--- NOTE | 2018-05-23 19:35 | NUR ---
PATIENT IS RESTING IN HER BED. DENIES ANY NEEDS. BED IS DOWN LOW WITH SIDE RAILS UP X2. CALL LIGHT IS IN REACH.
--- NOTE | 2018-05-23 21:34 | NUR ---
PATIENT IS RESTING IN HER BED. BED IS DOWN LOW WITH SIDE RAILS UP X2. CALL LIGHT IS IN REACH.
[2018-05-24] VITALS: BP 129/50
--- NOTE | 2018-05-24 00:06 | NUR ---
PATIENT IS RESTING IN HER BED. BED IS DOWN LOW. SIDE RAILS UP X2. CALL LIGHT IS IN REACH.
--- NOTE | 2018-05-24 04:03 | NUR ---
PATIENT IS SLEEPING. BED IS DOWN LOW WITH SIDE RAILS UP X2. CALL LIGHT IS IN REACH.
[2018-05-24 06:30] VITALS: BP 129/50
--- NOTE | 2018-05-24 07:35 | NUR ---
ALERT AND ORIENTED. NO C/ O PAIN. RESP EVEN AND UNLABORED. CL IN REACH.
[2018-05-24 08:18] VITALS: BP 107/43
--- NOTE | 2018-05-24 11:04 | NUR ---
BED BATH GIVEN PER NURSING.
--- NOTE | 2018-05-24 11:41 | NUR ---
ON AIR MATTRESS. NO C/O PAIN. CL IN REACH.
[2018-05-24 12:04] VITALS: BP 127/52
[2018-05-24 18:20] VITALS: BP 122/65
--- NOTE | 2018-05-24 19:05 | NUR ---
PATIENT IS RESTING IN HER BED. SHE DENIES ANY NEEDS. BED IS DOWN LOW WITH SIDE RAILS UP X2 AND CALL LIGHT IN REACH.
--- NOTE | 2018-05-24 21:45 | NUR ---
PATIENT RESTING IN HER BED. SHE DENIES ANY NEEDS. BED IS DOWN LOW AND CALL LIGHT IS IN REACH.
[2018-05-25] VITALS: BP 120/61
--- NOTE | 2018-05-25 00:06 | NUR ---
PATIENT DENIES ANY NEEDS. VITAL SIGNS ARE STABLE. BED IS DOWN LOW WITH SIDE RAILS UP X2. CALL LIGHT IS IN REACH.
--- NOTE | 2018-05-25 04:09 | NUR ---
PATIENT IS RESTING. DENIES ANY NEEDS. BED IS DOWN LOW WITH SIDE RAILS UP X2. CALL LIGHT IS IN REACH.
[2018-05-25 05:49] VITALS: BP 129/52
--- NOTE | 2018-05-25 07:43 | NUR ---
ALERT AND ORIENTED. NO C/O PAIN. RESP EVEN AND UNLABORED. CL IN REACH.
[2018-05-25 07:59] VITALS: BP 125/45
[2018-05-25 11:17] VITALS: BP 130/52
--- NOTE | 2018-05-25 15:46 | NUR ---
NO CHANGE IN ASSESSMENT. RESTING QUIETLY WITH EYES CLOSED. CL IN REACH.
[2018-05-25 18:43] VITALS: BP 134/52
--- NOTE | 2018-05-25 18:59 | NUR ---
PATIENT IS RESTING IN HER BED. DENIES ANY NEEDS. OFFERED LAXATIVE AND ZOFRAN R/T LAST BM WAS ON 05/21/18 AND C/O NAUSEA. STATES SHE WILL TAKE ZOFRAN BUT NOT LAXATIVE. CALL LIGHT IS IN REACH.
--- NOTE | 2018-05-25 20:51 | NUR ---
PATIENT IS RESTING IN HER BED. BED IS DOWN LOW WITH SIDE RAILS UP X2. CALL LIGHT IS IN REACH.
--- NOTE | 2018-05-26 00:11 | NUR ---
PATIENT IS SLEEPING. BED IS DOWN LOW. CALL LIGHT IS IN REACH.
[2018-05-26 00:45] VITALS: BP 121/48
--- NOTE | 2018-05-26 04:02 | NUR ---
PATIENT IS SLEEPING. SPOUSE IS AT HER SIDE. BED IS DOWN LOW WITH SIDE RAILS UP X2. CALL LIGHT IS IN REACH.
--- NOTE | 2018-05-26 04:04 | NUR ---
PATIENT IS SLEEPING. BED IS DOWN LOW. CALL LIGHT IS IN REACH.
[2018-05-26 06:06] VITALS: BP 130/51
[2018-05-26 07:22] LABS: BASOPHILS 1.2 % (0-2); EOSINOPHILS 8.5 % (0-7); HEMATOCRIT 29.8 % (36.0-48.0); HEMOGLOBIN 9.7 g/dL (12-16); IMMATURE GRANULOCYTES 0.5 % (0-5); LYMPHOCYTES 14.2 % (15-50); MCH 29.2 pg (26.0-34.0); MCHC 32.6 g/dL (31.0-37.0); MCV 89.8 fL (80.0-100.0); MONOCYTES 11.3 % (2-11); NEUTROPHILS 64.3 % (40-80); PLATELET COUNT 279 10x3/uL (130-400); RBC 3.32 10x6/uL (4.00-5.40); RDW 20.4 % (11.5-14.5); WBC 11.1 10x3/uL (4.8-10.8)
--- NOTE | 2018-05-26 07:25 | NUR ---
PT LYING IN BED. CL IN REACH. PT DENEIS NEEDS OR PAIN. RESP EVEN AND UNLABORED. BED IN LOW POSITION. SIDE RAILS X2. WILL CONTINUE TO MONITOR
[2018-05-26 07:34] LABS: ANION GAP 19.4 mmol/L (8-16); CARBON DIOXIDE 22.9 mmol/L (21.0-32.0); POTASSIUM - SERUM 4.3 mmol/L (3.5-5.1)
--- NOTE | 2018-05-26 11:42 | NUR ---
PT IN THERAPY .DENIES NEEDS
[2018-05-26 12:58] VITALS: BP 123/573
--- NOTE | 2018-05-26 15:33 | NUR ---
PT RESTING QUIETLY. CL IN REACH. PT DENIES NEEDS OR PAIN. WCTM
--- NOTE | 2018-05-26 17:43 | NUR ---
PT LYING IN BED. CL IN REACH. PT DENIES NEEDS OR PAIN. WCTM
[2018-05-26 18:01] VITALS: BP 139/48
--- NOTE | 2018-05-26 19:20 | NUR ---
RESTING IN BED WITH RESPIRATIONS UNLABORED. LEFT CHEST JOSE-SPLIT INTACT. NO DISTRESS NOTED. CALL LIGHT IN REACH.
[2018-05-27 00:59] VITALS: BP 129/41
--- NOTE | 2018-05-27 03:09 | NUR ---
RESTING IN BED WITH NO DISTRESS NOTED. RESPIRATIONS UNLABORED. CALL LIGHT IN REACH.
[2018-05-27 06:59] VITALS: BP 120/70
--- NOTE | 2018-05-27 07:24 | NUR ---
RESTING IN BED.DENIES NEEDS.
--- NOTE | 2018-05-27 07:25 | NUR ---
PT LYING IN BED WATCHING TV. CL IN REACH. PT DENIES NEEDS OR PAIN BED IN LOW POSITION. SIDE RAILS X2. RESP EVEN AND UNLABORED. PT ON 1ST STEP MATTRESS. PT ALSO ON 2L OF O2 VIA NC. WILL CONTINUE TO MONITOR.
--- NOTE | 2018-05-27 10:37 | NUR ---
Nutrition Follow Up: Chart reviewed. Noted pt with some N/V recently. Diet: ADA; Glucerna BID PO Intake: 14% - po intake continues very poor BM: 05/22/18 - no BM x 5 days Noted per Wound Care pt with stage III to R buttock Labs reviewed - Glucose continues elevated Meds noted Rec continue current diet, supplement regimen. Rec an appetite stimulant as pt continues to not meet est nutritional needs. Rec MV, Vit C, Zinc. RD following.
--- NOTE | 2018-05-27 11:11 | NUR ---
PT IN THERAPY. DENIES NEEDS
[2018-05-27 11:59] VITALS: BP 108/54
--- NOTE | 2018-05-27 14:35 | NUR ---
PT RECIEVING DIALYSIS AT THIS TIME IN ROOM. DENIES NEEDS. CL IN REACH.
--- NOTE | 2018-05-27 17:45 | NUR ---
PT LYING IN BED. CL IN REACH. PT DENIES NEEDS OR PAIN. WCTM
[2018-05-27 18:32] VITALS: BP 121/48
--- NOTE | 2018-05-27 19:07 | NUR ---
PATIENT IS SLEEPING. BED IS DOWN LOW WITH SIDE RAILS UP X2 AND CALL LIGHT IS IN REACH.
[2018-05-27 21:34] VITALS: BP 120/54
--- NOTE | 2018-05-27 21:58 | NUR ---
PATIENT IS RESTING IN HER BED. BED IS DOWN LOW WITH SIDE RAILS UP X2 AND CALL LIGHT IS IN REACH.
[2018-05-28 00:30] VITALS: BP 120/54
[2018-05-28 07:13] LABS: ANION GAP 17.9 mmol/L (8-16); CALCIUM 8.6 mg/dL (8.5-10.1); CARBON DIOXIDE 23.2 mmol/L (21.0-32.0); CREATININE - SERUM 5.8 mg/dL (0.6-1.3); POTASSIUM - SERUM 4.1 mmol/L (3.5-5.1)
[2018-05-28 07:29] LABS: BASOPHILS 0.6 % (0-2); EOSINOPHILS 7.6 % (0-7); HEMATOCRIT 29.5 % (36.0-48.0); HEMOGLOBIN 9.6 g/dL (12-16); IMMATURE GRANULOCYTES 0.3 % (0-5); LYMPHOCYTES 7.5 % (15-50); MCH 29.3 pg (26.0-34.0); MCHC 32.5 g/dL (31.0-37.0); MCV 89.9 fL (80.0-100.0); MEAN PLATELET VOLUME 11.5 fL (7.4-10.4); MONOCYTES 13.1 % (2-11); NEUTROPHILS 70.9 % (40-80); PLATELET COUNT 235 10x3/uL (130-400); RBC 3.28 10x6/uL (4.00-5.40); RDW 20.1 % (11.5-14.5); WBC 12.9 10x3/uL (4.8-10.8)
--- NOTE | 2018-05-28 07:38 | NUR ---
RESTING QUIETLY WO DISTRESS. RESP EVEN AND UNLABORED.
--- NOTE | 2018-05-28 08:00 | NUR ---
PATIENT REMAINS IN CONTACT ISOLATION. FIRST STEP MATTRESS ON BED. CALL LIGHT WITHIN REACH. ALERT/ORIENT. VOICES NO NEEDS AT THIS TIME. WILL CONTINUE WITH PLAN OF CARE
--- NOTE | 2018-05-28 09:55 | NUR ---
PATIENT DOWN IN REHAB ROOM. PRN ZOFRAN GIVEN FOR NAUSEA PER PATIENT REQUEST
--- NOTE | 2018-05-28 11:00 | NUR ---
OCCUPATIONAL THERAPIST IN ROOM. HELPING PATIENT WITH A SHOWER. PATIENT IS A MAX ASST WITH ADLS
[2018-05-28 12:22] VITALS: BP 116/67
[2018-05-28 18:01] VITALS: BP 131/53
--- NOTE | 2018-05-28 19:00 | NUR ---
PATIENT IS RESTING IN HER BED. SHE HAS A VISITOR AT BED SIDE. DENIES ANY NEEDS.
--- NOTE | 2018-05-28 21:33 | NUR ---
PATIENT IS RESTING IN HER BED. SHE DENIES PAIN OR ANY NEEDS. BED IS DOWN LOW WITH SIDE RAILS UP X2 AND CALL LIGHT IS IN REACH.
--- NOTE | 2018-05-29 00:07 | NUR ---
PATIENT IS SLEEPING. BED IS DOWN LOW WITH SIDE RAILS UP X2. CALL LIGHT IS IN REACH.
[2018-05-29 00:32] VITALS: BP 120/62
[2018-05-29 00:47] VITALS: BP 120/62
--- NOTE | 2018-05-29 04:12 | NUR ---
PATIENT IS SLEEPING. BED DOWN LOW WITH CALL LIGHT IN REACH.
[2018-05-29 06:27] VITALS: BP 120/39
--- NOTE | 2018-05-29 09:50 | NUR ---
PT PARTICIPATING IN THERAPY AT THIS TIME. PT AM MEDS PROVIDED. PT DENIES NEEDS. WCTM.
[2018-05-29 12:01] VITALS: BP 104/44
[2018-05-29 18:45] VITALS: BP 116/52
[2018-05-29 19:00] VITALS: BP 139/54
--- NOTE | 2018-05-29 22:46 | NUR ---
PATIENT RECEIVED SITTING UP IN BED WATCHING TV. PATIENT ASSESSMENT & VITAL SIGNS DONE. PATIENT HAD NO C/O PAIN OR DISTRESS. PATIENT BED LOW. ALARM ON. CALL LIGHT WITHIN REACH. WILL CONTINUE TO MONITOR.
--- NOTE | 2018-05-29 23:05 | NUR ---
PT ASLEEP NO NEEDS NOTED FLUIDS AND CALL LIGHT WITHIN REACH
[2018-05-30 00:48] VITALS: BP 107/48
[2018-05-30 01:41] VITALS: BP 107/48
[2018-05-30 06:25] VITALS: BP 131/61
[2018-05-30 10:03] LABS: HEMATOCRIT 32.1 % (36.0-48.0); HEMOGLOBIN 10.5 g/dL (12-16); LYMPHOCYTES 9.6 % (15-50); MCHC 32.7 g/dL (31.0-37.0); MCV 91.7 fL (80.0-100.0); MEAN PLATELET VOLUME 11.7 fL (7.4-10.4); NEUTROPHILS 75.7 % (40-80); RDW 21.2 % (11.5-14.5); WBC 13.1 10x3/uL (4.8-10.8)
[2018-05-30 10:06] LABS: PLATELET COUNT 286 10x3/uL (130-400)
[2018-05-30 10:14] LABS: ANION GAP 20.3 mmol/L (8-16); CALCIUM 8.9 mg/dL (8.5-10.1); CARBON DIOXIDE 21.8 mmol/L (21.0-32.0); CREATININE - SERUM 6.3 mg/dL (0.6-1.3); POTASSIUM - SERUM 5.1 mmol/L (3.5-5.1)
[2018-05-30 11:40] VITALS: BP 104/50
--- NOTE | 2018-05-30 11:40 | NUR ---
Top of right foot continues to heal. Left calf wound is improving . Left lateral heel is healing RIght buttock (sacral area) shows no change (stage 3 pressure injury) Coccyx (DTI) shows no change Reinstructed pt on turning/repositioning off of her bottom while in bed. She is able to do so with little to no assistance. She was placed on an air overlay mattress last week as per her request. Recommend: -continue using mepilex border dressings on right dorsal foot, left calf and left lateral heel -continue calmoseptine cream to sacrum/coccyx twice a day and as needed with personal care -continue to remind/assist pt to turn/reposition off her bottom every 2 hours while in bed and to reposition herself hourly while in wheelchair.
[2018-05-30 19:00] VITALS: BP 129/61
--- NOTE | 2018-05-30 19:45 | NUR ---
AWAKE AND ALERT. RESPRIATIONS UNLABORED BUT NOTED BILATERAL RUB HEARD IN LUNG ODELL. JUST RECENTLY FINISHED DIALYSIS. LEFT CHEST HEMISPLIT INTACT. TELEMETRY IN PLACE. NO ACUTE DISTRESS NOTED. CALL LIGHT IN REACH.
[2018-05-31 00:38] VITALS: BP 150/56
--- NOTE | 2018-05-31 02:04 | NUR ---
RESTING IN BED. SLEEPS AT INTERVALS. RESPIRATIONS UNLABORED. NO DISTRESS NOTED.
--- NOTE | 2018-05-31 05:18 | NUR ---
QUIET HOURS. HAS HAD SOME BLOODY VAGINAL DISCHARGE THIS SHIFT WITH SOME CLOTS NOTED. SCHEDULED FOR ENDOMETRIAL BIOSPY AFTER REHAB DISCHARGE.
[2018-05-31 05:31] VITALS: BP 142/64
--- NOTE | 2018-05-31 09:40 | NUR ---
PT AM MEDS ADMINISTERED. PT DENIES NEEDS. WCTM.
[2018-05-31 12:25] VITALS: BP 143/58
[2018-05-31 17:29] VITALS: BP 129/48
--- NOTE | 2018-05-31 17:34 | NUR ---
PT RESTING IN BED, EATING DINNER. PT DENIES NEEDS. WCTM.
--- NOTE | 2018-05-31 18:17 | NUR ---
RESTING QUIETLY IN BED. NO S/S DISTRESS. CALL LIGHT IN REACH. BED IN LOWEST POSITION.
--- NOTE | 2018-05-31 19:43 | NUR ---
AWAKE AND ALERT RESTING IN BED. NOTED SUPPER TRAY IN ROOM AND SHE HAS NOT EATEN ANYTHING FROM IT. SHE STATES "I HAVE BEEN SICK TODAY" I ASK IF SHE HAD NAUSEA AND VOMITING TODAY AND SHE SAID "NO I HAD A SUPPOSITORY AND I HAVE HAD SEVERAL BM'S TODAY AND ITS JUST MADE ME NOT FEEL GOOD" RESPIRATIONS UNLABORED. STATES SHE IS HAVING SOME PAIN BUT WOULD LIKE TO WAIT UNTIL HER HS MEDICATIONS TO TAKE PAIN PILL "SO I CAN GO TO SLEEP AND REST" CALL LIGHT IN REACH.
[2018-06-01 00:06] VITALS: BP 152/70
--- NOTE | 2018-06-01 00:14 | NUR ---
INCONTIENT OF BM AGAIN AND INCONTINENCE CARE GIVEN. TURNED AND REPOSITIONED. CALL LIGHT IN REACH.
[2018-06-01 05:44] VITALS: BP 126/58
--- NOTE | 2018-06-01 06:18 | NUR ---
TAHIRA RESTED MUCH TONIGHT. STATES HER STOMACH DOES FEEL A LITTLE BETTER BUT HER "BOTTOM" STILL HURT. MEDICATED FOR PAIN. INCONTIENT OF ANOTHER BM AND CLEANED AND CHANGED. DRESSING APPLIED TO COCCYX AND BUTTOCK WOUND. CALL LIGHT IN REACH.
--- NOTE | 2018-06-01 07:35 | NUR ---
RECEIVED REPORT. LYING IN BED SUPINE HOB ELEVATED 30 DEGREES EYES CLOSED RESTING. RR EVEN AND UNLABORED. CONTINUES ON 3.5L VIA NC. DENIES ANY NEEDS OR PAIN. CALL LIGHT WITHIN REACH, FALL PRECAUTIONS IN PLACE
[2018-06-01 09:20] VITALS: BP 132/60
--- NOTE | 2018-06-01 09:30 | NUR ---
ADMININSTERED MORNING MEDS WHOLE WITHOUT DIFFICULTY. PERFORMED INCONTINENCE CARE MED BM VERY LOOSE DARK BROWN. COCCYX MEPILEX CLEAN DRY AND INTACT. RR EVEN AND UNLABORED. CALL LIGHT WITHIN REACH, FALL PRECAUTIONS IN PLACE
[2018-06-01 12:15] VITALS: BP 132/60
--- NOTE | 2018-06-01 13:04 | NUR ---
TURNED TO LEFT SIDE PROPPED WITH PILLOWS. DENIES ANY NEEDS. CALL LIGHT WITHIN REACH, FALL PRECAUTIONS IN PLACE
--- NOTE | 2018-06-01 17:20 | NUR ---
REFUSED TO GET IN SHOWER ONLY STATED "I AM TO WEAK TO GET UP" ELVIA HOLLAND PERFORMED BED BATH AND LINEN CHANGE.
[2018-06-01 18:02] VITALS: BP 124/62
--- NOTE | 2018-06-01 19:35 | NUR ---
AWAKE AND ALERT. RESPIRATIONS UNLABORED. RESTING IN BED. LEFT CHEST JOSE-SPLIT INTACT. STATES SHE HAD SEVERAL BM'S TODAY. ABDOMEN SOFT. NOTED COARSE RIGHT LUNG SOUNDS. O2/3.5L ON PER NASAL CANNULA. REQUEST PAIN PILL WITH HS MEDICATIONS. CALL LIGHT IN REACH.
[2018-06-02 00:36] VITALS: BP 144/68
--- NOTE | 2018-06-02 01:54 | NUR ---
RESTING IN BED WITH RESPIRATIONS UNLABORED. NO DISTRESS NOTED.
--- NOTE | 2018-06-02 02:35 | NUR ---
ZOFRAN 4MG GIVEN PO FOR C/O NAUSEA.
[2018-06-02 05:54] VITALS: BP 150/55
[2018-06-02 06:44] LABS: BASOPHILS 0.1 % (0-2); EOSINOPHILS 0.9 % (0-7); HEMATOCRIT 29.6 % (36.0-48.0); HEMOGLOBIN 9.7 g/dL (12-16); IMMATURE GRANULOCYTES 0.3 % (0-5); LYMPHOCYTES 8.2 % (15-50); MCH 29.5 pg (26.0-34.0); MCHC 32.8 g/dL (31.0-37.0); MEAN PLATELET VOLUME 10.9 fL (7.4-10.4); MONOCYTES 8.2 % (2-11); NEUTROPHILS 82.3 % (40-80); PLATELET COUNT 276 10x3/uL (130-400); RBC 3.29 10x6/uL (4.00-5.40); RDW 19.8 % (11.5-14.5); WBC 18.5 10x3/uL (4.8-10.8)
[2018-06-02 06:57] LABS: CALCIUM 8.5 mg/dL (8.5-10.1); CARBON DIOXIDE 22.9 mmol/L (21.0-32.0); CREATININE - SERUM 6.4 mg/dL (0.6-1.3); POTASSIUM - SERUM 4.9 mmol/L (3.5-5.1)
--- NOTE | 2018-06-02 07:30 | NUR ---
PT LYING IN BED CALL LIGHT IN REACH. BED IN LOW POSITION. SIDE RAILS X2. RESP EVEN AND UNLABORED. PT ON 02 VIA NC AT 3L. PT LUNGS DO SOUND COARSE ON R SIDE. WILL CONTINUE TO MONITOR.
[2018-06-02 07:34] VITALS: BP 120/48
--- NOTE | 2018-06-02 11:39 | NUR ---
PT IN THERAPY. DENIES NEEDS. CHEST XRAY CAME BACK NOTE FOR DR. LAMB TO REVIEW IN THE MORNING.
[2018-06-02 12:43] VITALS: BP 102/48
--- NOTE | 2018-06-02 13:31 | NUR ---
CONSULT FOR DR. DOS SANTOS HAS BEEN ORDERED THIS NURSE PAGED LEVON WAITING FOR PHONE CALL BACK.
--- NOTE | 2018-06-02 14:35 | NUR ---
DR. DOS SANTOS CONSULTED PER ORDER. SPOKE WITH HIM ON TELEPHONE.
--- NOTE | 2018-06-02 16:02 | NUR ---
COLLECTED UA VIA STRAIGHT CATH USING STERILE TECHNIQUE DUE TO PT BEING MAX ASSIST.
[2018-06-02 16:33] LABS: APPEARANCE HAZY (CLEAR); BILIRUBIN NEGATIVE (NEGATIVE); COLOR BROWN (YELLOW); GLUCOSE NEGATIVE (NEGATIVE); KETONE NEGATIVE (NEGATIVE); NITRITE NEGATIVE (NEGATIVE); PROTEIN 1+ mg/dL (NEGATIVE); UROBILINOGEN NORMAL (NORMAL)
[2018-06-02 16:35] LABS: BACTERIA MANY /hpf (NONE SEEN); EPITHELIAL CELLS 0-5 /hpf (0-5); RED CELLS - URINE 25-50 /hpf (0-5); YEAST <1+ /hpf (NONE SEEN)
--- NOTE | 2018-06-02 17:35 | NUR ---
PT LYING IN BED. DIALYSIS IN ROOM. PT DENIES NEEDS OR PAIN. CALL LIGHT IN REACH. WCTM. BM TODAY VERY LOOSE.
[2018-06-02 18:11] VITALS: BP 90/48
--- NOTE | 2018-06-02 19:35 | NUR ---
REPOSITION PT AND CHANGED PT LINEN.
--- NOTE | 2018-06-02 22:17 | NUR ---
PT AWAKE, REMAINS ON CONTACT PRECAUTIONS FOR VRE URINE, FLUIDS AND CALL LIGHT WITHIN REACH
[2018-06-03 00:04] VITALS: BP 109/48
[2018-06-03 00:43] VITALS: BP 122/55
--- NOTE | 2018-06-03 02:35 | NUR ---
PT REST IN BED, CALL LIGHT IN REACH.
[2018-06-03 05:28] VITALS: BP 123/55
[2018-06-03 06:57] LABS: BASOPHILS 0.2 % (0-2); EOSINOPHILS 1.6 % (0-7); HEMOGLOBIN 9.4 g/dL (12-16); IMMATURE GRANULOCYTES 0.3 % (0-5); LYMPHOCYTES 9.2 % (15-50); MCH 29.4 pg (26.0-34.0); MCHC 32.4 g/dL (31.0-37.0); MCV 90.6 fL (80.0-100.0); MEAN PLATELET VOLUME 11.2 fL (7.4-10.4); MONOCYTES 9.6 % (2-11); NEUTROPHILS 79.1 % (40-80); PLATELET COUNT 272 10x3/uL (130-400); RDW 19.6 % (11.5-14.5); WBC 15.8 10x3/uL (4.8-10.8)
--- NOTE | 2018-06-03 07:20 | NUR ---
PT LYING IN BED. CALL LIGHT IN REACH. PT DENIES NEEDS OR PAIN AT THIS TIME. PT IS ON 1ST STEP OVERLAY MATTRESS. O2 ON VIA NC AT 3L. BED IN LOW POSITION. SIDE RAILS X2. THIS NURSE CALLED LAB AND ASKED TO USE URINE COLLECTED FROM YESTERDAYS UA FOR THE CULTURE. LAB OKAYD TO USE URINE. RESP EVEN AND UNLABORED NO DISTRESS NOTED. WILL CONTINUE TO MONITOR.
--- NOTE | 2018-06-03 07:53 | NUR ---
NO DISTRESS NOTED. ALERT AND ORIENTED. BREAKFAST IN ROOM.
--- NOTE | 2018-06-03 10:02 | NUR ---
SPOKE WITH PHARMACIST ABOUT MACROBID NOT BEING ABLE TO WORK DUE TO CREATININE BEING LOW. SPOKE WITH ZAINAB AND TOLD HIM ABOUT CHEST XRAY SHOWING R LOWER LOBE PNEUMONIA. ROCEPHIN IM INJECTIONS ORDERED. WILL CONTINUE TO MONITOR.
[2018-06-03 12:04] VITALS: BP 129/56
--- NOTE | 2018-06-03 13:49 | NUR ---
Nutrition Follow Up: Pt was asleep at the time of RD visit. Interview deferred at this time. Diet: ADA; Glucerna BID PO Intake: 17% meal avg - po intake continues very poor BM: 06/03/18 Noted pt with stage III to coccyx No new wt Labs reviewed Meds noted including Megace Rec continue current diet, supplement regimen. If pt continues to not meet est nutritional needs rec consider PEG placement. Rec MV, Zinc, Vit C daily. RD following.
--- NOTE | 2018-06-03 13:50 | NUR ---
PT LYING IN BED. CALL LIGHT IN REACH. PT DENIES NEEDS OR PAIN. BED IN LOW POSITION. SIDE RAILS X2. RESP EVEN AND UNLABORED. WCTM
--- NOTE | 2018-06-03 14:30 | NUR ---
PT LYING IN BED. CALL LIGHT IN REACH. PT DENIES NEEDS OR PAIN. WCTM
--- NOTE | 2018-06-03 17:40 | NUR ---
PT LYING IN BED. CALL LIGHT IN REACH. PT DENIES NEEDS OR PAIN. WCTM
[2018-06-03 18:16] VITALS: BP 135/44
[2018-06-04 00:02] VITALS: BP 110/46
--- NOTE | 2018-06-04 02:35 | NUR ---
PATIENT UP TO THE RESTROOM. BEDDING CHANGE COMPLETE. THE PATIENT HAS NO QUESTIONS OR CONCERNS AT THIS TIME.
[2018-06-04 06:35] VITALS: BP 131/53
--- NOTE | 2018-06-04 07:16 | NUR ---
RESTING WITH EYES CLOSED. NO SIGNS OF DISTRESS NOTED.
--- NOTE | 2018-06-04 08:00 | NUR ---
PATIENT IS ALERT/ORIETN. CONTINUE IN ISOLOATION FOR VRE IN URINE. SITTING UP IN BED FOR BREAKFAST. CALL LIGHT WITHIN REACH. VOICES NO NEEDS. WILL CONTINUE WITH PLAN OF CARE
--- NOTE | 2018-06-04 11:00 | NUR ---
PATIENT IN REHAB ROOM. WORKING WITH PHYSICAL THERAPIST
[2018-06-04 11:39] VITALS: BP 99/55
--- NOTE | 2018-06-04 13:16 | NUR ---
PATIENT SITTING UP IN WHEELCAHIR BY BED. CALL LIGHT WITHIN REACH
--- NOTE | 2018-06-04 15:42 | NUR ---
FRUIT RECEIVER IN FOR FOR DIALYSIS TREATMENT
--- NOTE | 2018-06-04 16:23 | NUR ---
PATIENT HAS BEEN ACCEPTED TO THE [facility] AND WILL DISCHARGE THERE IN THE AM 06/05/18. PATIENT AND DAUGHTER ABRAN FITZGERALD HAS BEEN NOTIFIED . WILL CONTINUE TO FOLLOW WITH PATIENT.
[2018-06-04 18:16] VITALS: BP 101/51
--- NOTE | 2018-06-04 20:23 | NUR ---
RESTING IN BED WITH EYES CLOSED. RESPIRATIONS UNLABORED. NO DISTRESS NOTED. CALL LIGHT IN REACH.
[2018-06-05 00:26] VITALS: BP 104/53
--- NOTE | 2018-06-05 03:28 | NUR ---
AWAKE AND ALERT. RESPIRATIONS UNLABORED. REMAINS IN CONTACT ISOLATION. NO DISTERSS NOTED.
[2018-06-05 06:03] VITALS: BP 132/62
--- NOTE | 2018-06-05 06:06 | NUR ---
ASSISTED WITH BEDPAN AND HAD BM. MEDICATED FOR PAIN. STATES SHE IS LEAVING TODAY AND GOING TO THE "[place] [facility]". NO ACUTE DISTRESS NOTED.
[2018-06-05 06:32] LABS: ANION GAP 16.1 mmol/L (8-16); CALCIUM 8.5 mg/dL (8.5-10.1); CARBON DIOXIDE 25.4 mmol/L (21.0-32.0); POTASSIUM - SERUM 3.5 mmol/L (3.5-5.1)
[2018-06-05 06:38] LABS: BASOPHILS 0.3 % (0-2); EOSINOPHILS 5.9 % (0-7); HEMATOCRIT 28.6 % (36.0-48.0); HEMOGLOBIN 9.1 g/dL (12-16); IMMATURE GRANULOCYTES 0.5 % (0-5); LYMPHOCYTES 10.2 % (15-50); MCH 29.4 pg (26.0-34.0); MCHC 31.8 g/dL (31.0-37.0); MCV 92.3 fL (80.0-100.0); MEAN PLATELET VOLUME 11.5 fL (7.4-10.4); MONOCYTES 12.4 % (2-11); NEUTROPHILS 70.7 % (40-80); PLATELET COUNT 312 10x3/uL (130-400); RDW 19.5 % (11.5-14.5); WBC 13.2 10x3/uL (4.8-10.8)
[2018-06-05] MEDS ORDERED: NORCO-10 PO (09:02)
--- NOTE | 2018-06-05 09:09 | NUR ---
PT AM MEDS ADMINISTERED. PT REFUSED MEGACE. PT SITTING UP IN BED AT THIS TIME, DENIES NEEDS. WCTM.
--- NOTE | 2018-06-05 10:05 | NUR ---
PATIENT DISCHARGING TO THE [facility] TODAY VIA FACILITY VAN. PATIENT WILL CONTINUE DIALYSIS AT [facility] ON @ 11:45. NO HOME HEALTH OR DME NEEDED AT THIS TIME. PATIENT CHOICE FORM FOR SNF AND IMFM FORMS SIGNED , COPIES GIVEN TO PATIENT AND FILED IN CHART. DISCHARGE INSTRUCTIONS WITH FIM DATA FAXED TO PCP AND TO SNF.
--- NOTE | 2018-06-05 12:26 | NUR ---
PT DISCHARGED TO [facility]. REPORT CALLED.
== END 2018-06-05 12:30 | DRG 91 ==
LOC: D.REHAB 01:16
PROVIDERS: ADMIT Emergency Medicine
DX: G72.89 Other specified myopathies (principal); N18.6 End stage renal disease; I50.23 Acute on chronic systolic (congestive) heart failure; E87.1 Hypo-osmolality and hyponatremia; N17.9 Acute kidney failure, unspecified; J90 Pleural effusion, not elsewhere classified; I13.0 Hypertensive heart and chronic kidney disease with heart failure and stage 1 through stage 4 chronic kidney disease, or unspecified chronic kidney disease; E11.22 Type 2 diabetes mellitus with diabetic chronic kidney disease; Z99.2 Dependence on renal dialysis; D64.9 Anemia, unspecified; I48.91 Unspecified atrial fibrillation; Z95.0 Presence of cardiac pacemaker; E78.5 Hyperlipidemia, unspecified; I25.10 Atherosclerotic heart disease of native coronary artery without angina pectoris; Z95.5 Presence of coronary angioplasty implant and graft; E66.01 Morbid (severe) obesity due to excess calories; N18.9 Chronic kidney disease, unspecified

== ENCOUNTER 2018-06-17 06:42 | Inpatient (IN) | payer MEDICARE, OTHER ==
[~2018-06-17] VITALS: Ht 172.7 cm; Wt 104.3 kg
[~2018-06-17 06:42] MED LIST changes: +NORCO-10 PO
[2018-06-17 07:48] LABS: BASOPHILS 0.9 % (0-2); EOSINOPHILS 3.1 % (0-7); HEMATOCRIT 24.8 % (36.0-48.0); HEMOGLOBIN 7.6 g/dL (12-16); IMMATURE GRANULOCYTES 0.3 % (0-5); LYMPHOCYTES 13.5 % (15-50); MCH 29.7 pg (26.0-34.0); MCHC 30.6 g/dL (31.0-37.0); MCV 96.9 fL (80.0-100.0); MONOCYTES 12.6 % (2-11); NEUTROPHILS 69.6 % (40-80); PLATELET COUNT 360 10x3/uL (130-400); RBC 2.56 10x6/uL (4.00-5.40); RDW 17.8 % (11.5-14.5); WBC 11.6 10x3/uL (4.8-10.8)
[2018-06-17 08:00] LABS: ALBUMIN 1.8 g/dL (3.4-5.0); ALKALINE PHOSPHATASE 143 U/L (46-116); ALT (SGPT) 22 U/L (10-68); BILIRUBIN - TOTAL 0.65 mg/dL (0.2-1.3); CALC OSMOLALITY 279 mosm/kg (275-300); CALCIUM 8.2 mg/dL (8.5-10.1); CARBON DIOXIDE 28.4 mmol/L (21.0-32.0); CHLORIDE - SERUM 103 mmol/L (98-107); CREATININE - SERUM 3.3 mg/dL (0.6-1.3); POTASSIUM - SERUM 3.7 mmol/L (3.5-5.1); SODIUM 139 mmol/L (136-145); UREA NITROGEN 25 mg/dL (7-18); eGFR NON AFRICAN AMERICAN 15 mL/min (90-120)
[2018-06-17 08:02] LABS: GLUCOSE 69 mg/dL (74-106)
[2018-06-17 08:10] LABS: CKMB 2.6 U/L (0.0-3.6); CREATINE KINASE 30 UL (21-215); PRO BNP 23220 pg/mL (0-125); TROPONIN-I 0.018 ng/mL (0.000-0.060)
[2018-06-17 08:11] LABS: APTT 38.3 SECONDS (22.8-39.4); INR 1.23 (0.85-1.17)
--- NOTE | 2018-06-17 08:57 | NUR ---
PT ASSISTED WITH REPOSITIONING FOR COMFORT. FAMILY MEMBER PRESENT AT THE BEDSIDE. IV INFUSING ORDERED WITH NO SIGNS OF INFILTRATION. CALL LIGHT IN REACH, WILL CONTINUE TO MONITOR.
[2018-06-17 09:14] VITALS: BP 101/41
--- NOTE | 2018-06-17 10:03 | MORECARE ---
CASE MANAGEMENT DISCHARGE SUMMARY PATIENT: CANDACE HYDE UNIT: [id number] ADM DATE: 06/17/18 AGE: 68 : 49 SEX: F ROOM/BED: D.E10 AUTHOR: LIUDMILA MORGAN PHYSICIAN: REFERRING PHYSICIAN: DARIO LOZADA MD DATE OF SERVICE: 06/17/18 Discharge Plan Patient Name: CANDACE HYDE [facility] [facility] 1950 Planned Disposition: Home Anticipated Discharge Date: 06/19/18 Discharge Date: Expected LOS: 2 Initial Reviewer: [email or web address] Initial Review Date: 06/17/2018 Generated: 06/17/18 11:03 am Patient Name: CANDACE HYDE Page [id number] at 1003 All edits/amendments must be made on the electronic document DICTATION DATE: 06/17/18 1003 GAMBLING CASHIER: BONNIE 06/17/18 1003 RPT#: [id number] DC DATE: STATUS: ADM IN [facility] [address] [place] [address] END OF REPORT
--- NOTE | 2018-06-17 10:45 | MORECARE ---
CASE MANAGEMENT DISCHARGE SUMMARY PATIENT: CANDACE HYDE UNIT: [id number] ADM DATE: 06/17/18 AGE: 68 : 49 SEX: F ROOM/BED: D.2116 AUTHOR: LIUDMILA MORGAN PHYSICIAN: REFERRING PHYSICIAN: DARIO LOZADA MD DATE OF SERVICE: 06/17/18 Discharge Plan Patient Name: CANDACE HYDE [facility] [facility] 1950 Planned Disposition: Home Anticipated Discharge Date: 06/19/18 Discharge Date: Expected LOS: 2 Initial Reviewer: [email or web address] Initial Review Date: 06/17/2018 Generated: 06/17/18 11:44 am Last DP export: 06/17/18 9:03 a Patient Name: CANDACE HYDE Page 69161 at 1045 All edits/amendments must be made on the electronic document DICTATION DATE: 06/17/18 1044 BAG SORTER: BONNIE 06/17/18 1044 RPT#: [id number] DC DATE: STATUS: ADM IN [facility] [address] [place] [address] END OF REPORT
--- NOTE | 2018-06-17 10:47 | NUR ---
ROOM 2116 ASSIGNED AT 1036. THIS NURSE CALLED REPORT TO ELVIA TOVAR AT 1043. INFORMED BY RECIEVING NURSE THAT ROOM 2116 IS CURRENTLY DIRTY. NURSE TO NOTIFY ED WHEN ASSIGNED ROOM IS READY FOR PT.
--- NOTE | 2018-06-17 10:59 | MORECARE ---
CASE MANAGEMENT DISCHARGE SUMMARY PATIENT: CANDACE HYDE UNIT: [id number] ADM DATE: 06/17/18 AGE: 68 : 49 SEX: F ROOM/BED: D.[facility]6 AUTHOR: LIUDMILA MORGAN PHYSICIAN: REFERRING PHYSICIAN: DARIO LOZADA MD DATE OF SERVICE: 06/17/18 Discharge Plan Patient Name: CANDACE HYDE Facility: [facility]:[place] : 1950 Planned Disposition: Home Anticipated Discharge Date: 06/19/18 Discharge Date: Expected LOS: 2 Initial Reviewer: [email or web address] Initial Review Date: 06/17/2018 Generated: 06/17/18 11:59 am DCPIA - Discharge Planning Initial Assessment Updated by [email or web address]: Davida Vences on 06/17/18 10:59 am * Is the patient Alert and Oriented? Yes * How many steps to enter\exit or inside your home? None * PCP Dr. Lozada * [facility] * Preadmission Environment [facility] * Facility Name [facility] * ADLs Partial Dependent * Partial ADLs (Assistance needed) Ambulation Bathing Dressing Medication Management Toileting Transfers * Equipment Wheelchair * Other Equipment At this time patient is chair or bed bound. * List name and contact numbers for known caregivers / representatives who currently or will assist patient after discharge: Tessa hankins - [place] - [phone] * Verbal permission to speak to the caregivers and representatives has been obtained from the patient. Yes * Community resources currently utilized Other * Please name any agencies selected above. Hemodialysis @ [facility] * Additional services required to return to the preadmission environment? No * Can the patient safely return to the preadmission environment? Yes * Has this patient been hospitalized within the prior 30 days at any hospital? Yes Last DP export: 06/17/18 9:45 a Patient Name: CANDACE HYDE Page 70906 at 1059 All edits/amendments must be made on the electronic document DICTATION DATE: 06/17/18 1059 NECK CUTTER: BONNIE 06/17/18 1059 RPT#: [id number] DC DATE: STATUS: [facility] [address] [place] [address] END OF REPORT
--- NOTE | 2018-06-17 11:07 | MORECARE ---
CASE MANAGEMENT DISCHARGE SUMMARY PATIENT: CANDACE HYDE UNIT: [id number] ADM DATE: 06/17/18 AGE: 68 : 49 SEX: F ROOM/BED: D.4519 AUTHOR: LIUDMILA MORGAN PHYSICIAN: REFERRING PHYSICIAN: DARIO LOZADA MD DATE OF SERVICE: 06/17/18 Discharge Plan Patient Name: CANDACE HYDE Facility: [facility]:[place] : 1950 Planned Disposition: Home Anticipated Discharge Date: 06/19/18 Discharge Date: Expected LOS: 2 Initial Reviewer: [email or web address] Initial Review Date: 06/17/2018 Generated: 06/17/18 12:07 pm Comments DCP- Discharge Planning Updated by [email or web address]: Davida Vences on 06/17/18 10:[address] Patient Name: CANDACE HYDE Admission Status: ER Accout number: [id number] Admission Date: 06-17-2018 : 1950 Admission Diagnosis: Attending: DARIO LOZADA Current LOS: 1 Anticipated DC Date: 06-19-2018 Planned Disposition: Home Primary Insurance: MEDICARE A & B Discharge Planning Comments: CM met with patient and her daughter Tessa LOU to complete initial dc planning assessment. CM educated patient and Tessa on the CM role and verbal consent given by patient to complete assessment. Patient is currently at [facility] for rehab. She is new to hemodialysis and goes to [facility] on . The [facility] provides her transportation to and from dialysis. Patient's daughter reports that the patient is very weak and is mostly bed/chair bound. Her Amusement Park Ride Mechanic is Dr. Christianson. At discharge patient plans to return to the [facility] to complete her rehab and feels this is a safe discharge. Patient denied known discharge needs at this time. CM will continue to follow and will assist as needed with dc plans/needs. Senior Policy Analyst: Davida Vences DCPIA - Discharge Planning Initial Assessment Updated by [email or web address]: Davida Vences on 06/17/18 10:59 am * Is the patient Alert and Oriented? Yes * How many steps to enter\exit or inside your home? None * PCP Dr. Lozada * [facility]acy [facility] * Preadmission Environment [facility] * Facility Name [facility] * ADLs Partial Dependent * Partial ADLs (Assistance needed) Ambulation Bathing Dressing Medication Management Toileting Transfers * Equipment Wheelchair * Other Equipment At this time patient is chair or bed bound. * List name and contact numbers for known caregivers / representatives who currently or will assist patient after discharge: Tessa Vyas - cr - [place] - [phone] * Verbal permission to speak to the caregivers and representatives has been obtained from the patient. Yes * Community resources currently utilized Other * Please name any agencies selected above. Hemodialysis @ [facility] * Additional services required to return to the preadmission environment? No * Can the patient safely return to the preadmission environment? Yes * Has this patient been hospitalized within the prior 30 days at any hospital? Yes Last DP export: 06/17/18 9:59 a Patient Name: CANDACE HYDE Page [phone] at 1107 All edits/amendments must be made on the electronic document DICTATION DATE: 06/17/181105 CAD INTERN: BONNIE 06/17/18 110 RPT#: [id number] DC DATE: STATUS: ADM IN [facility] [address] [place] [address] END OF REPORT
--- NOTE | 2018-06-17 11:36 | NUR ---
TRANSFERED FROM ER BY STRETCHER. OREINTED TO ROOM. CALL LIGHT IN REACH. WILL CONT. PLAN OF CARE.
[2018-06-17 12:17] VITALS: BP 110/44
[2018-06-17 13:34] VITALS: BP 101/41; BMI 35.0
--- NOTE | 2018-06-17 14:01 | NUR ---
[facility] She has a history of pressure injuries. She is incontinent of bowels and bladder and was wearing a brief, which was removed upon assessment. Wounds are listed below: -Right dorsal foot 1cm x 1cm healing wound. -Left calf: 6cm x 0.5cm chronic wound that is healing. Marked improvement noted since pts last admission. -Left plantar foot is purple on lateral aspect (deep tissue injury) -Right buttock: Stage 3 pressure injury 2.5cm x 3.5cm -Right buttock: Stage 2 pressure injury 0.5cm x 0.5cm -Coccyx: Stage 3 pressure injury 3cm x 1.5cm -Left forearm has skin tear 3cm x 3cm Bilateral feet are very dry and peeling. Lotion was applied and nonskid socks were put on. Recommendations: -Air overlay mattress -Turn/reposition every 2 hours while in bed -Maxorb rope (alginate rope) on buttocks/coccyx wounds -Mepilex border to left calf, left forearm Wound care will continue monitoring.
--- NOTE | 2018-06-17 15:06 | NUR ---
WOUND CARE DONE BY WOUND CARE NURSE. AIR MATRESS APLIED TO BED. BED ALARM ON. WILL CONT. PLAN OF CARE.
[2018-06-17 16:26] VITALS: BP 92/51
[2018-06-18] VITALS: BP 109/46; BP 118/89
--- NOTE | 2018-06-18 02:45 | NUR ---
RESTING QUITELY IN BED RESP UNLABORED, NO APPARENT DISTRESS CALL LIGHT IN REACH
[2018-06-18 04:00] VITALS: BP 119/44
[2018-06-18 06:29] LABS: ANION GAP 15.5 mmol/L (8-16); CALCIUM 8.4 mg/dL (8.5-10.1); CARBON DIOXIDE 24.4 mmol/L (21.0-32.0); POTASSIUM - SERUM 3.9 mmol/L (3.5-5.1)
[2018-06-18 06:34] LABS: BASOPHILS 0.6 % (0-2); EOSINOPHILS 1.9 % (0-7); HEMATOCRIT 21.5 % (36.0-48.0); IMMATURE GRANULOCYTES 0.2 % (0-5); LYMPHOCYTES 16.1 % (15-50); MCH 29.2 pg (26.0-34.0); MCHC 30.7 g/dL (31.0-37.0); MCV 95.1 fL (80.0-100.0); MEAN PLATELET VOLUME 10.9 fL (7.4-10.4); MONOCYTES 15.6 % (2-11); NEUTROPHILS 65.6 % (40-80); PLATELET COUNT 333 10x3/uL (130-400); RBC 2.26 10x6/uL (4.00-5.40); RDW 17.3 % (11.5-14.5); WBC 11.4 10x3/uL (4.8-10.8)
[2018-06-18 06:37] LABS: HEMOGLOBIN 6.6 g/dL (12-16)
--- NOTE | 2018-06-18 06:48 | NUR ---
NOTIFIED DR DAHLIA DWYER NURSE OF PTS CRITICAL HGB AND GRAM POSITIVE COCCI.
[2018-06-18 06:49] LABS: CREATININE - SERUM 4.2 mg/dL (0.6-1.3)
[2018-06-18 08:51] VITALS: BP 123/68
--- NOTE | 2018-06-18 09:23 | NUR ---
LEAVING FOR DIALYSIS BY BED. VANC SENT TO DIALYSIS TO BE INFUSED. 2 UNITS PRBC TO BE GIVEN ON DIALYSIS TODAY. WILL CONT. PLAN OF CARE.
--- NOTE | 2018-06-18 13:00 | NUR ---
DIALYSIS COMPLETED WITH 2 UNITS BLOOD GIVEN. B/P 122/61.
--- NOTE | 2018-06-18 13:24 | NUR ---
DRSGS CHANGED TO COCCYX AND LEFT LEG PER ORDERS. SCDS ON.
[2018-06-18 15:22] VITALS: Ht 172.7 cm; Wt 104.3 kg
[2018-06-18 16:49] VITALS: BP 126/70
[2018-06-18 20:30] VITALS: BP 86/47
[2018-06-19 00:30] VITALS: BP 108/45
--- NOTE | 2018-06-19 04:32 | NUR ---
BATH AND LINEN CHANGE COMPLETE, PT REPOSITIONED IN BED FOR COMFORT.
[2018-06-19 04:51] LABS: BASOPHILS 0.9 % (0-2); IMMATURE GRANULOCYTES 0.4 % (0-5); LYMPHOCYTES 14.3 % (15-50); MCH 29.3 pg (26.0-34.0); MCHC 32.3 g/dL (31.0-37.0); MEAN PLATELET VOLUME 11.4 fL (7.4-10.4); MONOCYTES 16.2 % (2-11); NEUTROPHILS 65.2 % (40-80); PLATELET COUNT 319 10x3/uL (130-400); RDW 19.1 % (11.5-14.5); WBC 11.7 10x3/uL (4.8-10.8)
[2018-06-19 05:04] LABS: HEMOGLOBIN 8.4 g/dL (12-16); MCV 90.6 fL (80.0-100.0); RBC 2.87 10x6/uL (4.00-5.40)
[2018-06-19 05:19] LABS: ANION GAP 13.1 mmol/L (8-16); CARBON DIOXIDE 28.4 mmol/L (21.0-32.0); CREATININE - SERUM 3.4 mg/dL (0.6-1.3); POTASSIUM - SERUM 3.5 mmol/L (3.5-5.1); VANCOMYCIN - RANDOM 4.8 ug/mL (10.0-20.0)
[2018-06-19 05:29] VITALS: BP 103/57
--- NOTE | 2018-06-19 07:48 | NUR ---
REPORT RECIEVED FROM STEREOTYPE MOLDER NURSE. PT IS ASLEEP AT PRESENT. IN REPORT, STEREOTYPE MOLDER NURSE SAYS AN IN&OUT CATH WAS TRIED FOR UA BUT URINE WAS SO THICK IT WOULD NOT GO THRU THE SMALL CATH. Antonia LEONARD APN CALLED AND AN ORDER FOR FABIO OBTAINED. ALSO WILL GET A UA FOR C&S.
[2018-06-19 08:56] VITALS: BP 124/74
--- NOTE | 2018-06-19 10:30 | NUR ---
16FR MCCARTHY INSERTED USING STERILE TECHNIQUE PER ALVINA BABIN NPC RN STUDENT AND PRECEPTED BY THIS RN. IMMEDIATE RETURN OF NAYELI URINE WITH SEDIMENT NOTED AND COLLECTED FOR UA AND CULTURE. PT TOLERATED PROCEDURE WELL. CLEAN CHUX PROVIDED. PT TO SEMI FOWLERS POSITION AND DENIES FURTHER NEEDS.
--- NOTE | 2018-06-19 12:16 | NUR ---
DRSGS CHANGED TO COCCYX AND LEFT LEG ORDERED.
[2018-06-19 12:34] VITALS: BP 102/57
[2018-06-19 17:51] VITALS: BP 108/48
--- NOTE | 2018-06-19 19:25 | NUR ---
RESUMED CARE OF PT, LYING IN BED RESPIRATIONS EVEN AND UNLABORED ON 2LPM VIA NC. LEFT AC SALINE LOCKED. 85 CAF ON TELEMETRY. MCCARTHY TO GRAVITY, 1ST STEP OVERLAY INFLATED. NO NEEDS AT THIS TIME, CALL LIGHT IN REACH. SEE NURSE ASSESSMENT.
[2018-06-19 20:23] VITALS: BP 118/44
[2018-06-20 01:05] VITALS: BP 104/43
[2018-06-20 05:36] VITALS: BP 107/43
[2018-06-20 05:39] LABS: BASOPHILS 0.3 % (0-2); EOSINOPHILS 1.7 % (0-7); HEMATOCRIT 26.6 % (36.0-48.0); HEMOGLOBIN 8.3 g/dL (12-16); IMMATURE GRANULOCYTES 0.2 % (0-5); LYMPHOCYTES 13.4 % (15-50); MCH 28.7 pg (26.0-34.0); MCHC 31.2 g/dL (31.0-37.0); MEAN PLATELET VOLUME 10.6 fL (7.4-10.4); MONOCYTES 13.4 % (2-11); PLATELET COUNT 296 10x3/uL (130-400); RBC 2.89 10x6/uL (4.00-5.40); RDW 18.8 % (11.5-14.5); WBC 13.1 10x3/uL (4.8-10.8)
[2018-06-20 06:00] LABS: ANION GAP 13.9 mmol/L (8-16); CALCIUM 8.4 mg/dL (8.5-10.1); CARBON DIOXIDE 28.2 mmol/L (21.0-32.0); VANCOMYCIN - RANDOM 17.4 ug/mL (10.0-20.0)
[2018-06-20 06:01] LABS: CREATININE - SERUM 4.5 mg/dL (0.6-1.3); POTASSIUM - SERUM 4.1 mmol/L (3.5-5.1)
--- NOTE | 2018-06-20 07:30 | NUR ---
ALERT AND ORIENTED TO NAME AND PLACE. 02 AT 2 L/M PER NC. LEFT AC SL AND LEFT CHEST HEMISPLIT.ON 1ST STEP OVERLAY. MCCARTHY CATH PATEN TO GRAVITY BAG.TELEMERTY SHOWS CAF 105.
[2018-06-20 08:06] VITALS: BP 105/45
--- NOTE | 2018-06-20 09:00 | NUR ---
TO DIALYSIS PER BED.
--- NOTE | 2018-06-20 13:32 | NUR ---
BACK FROM DIALYSIS. V/S STABLE. CONFUSED . SR UP WITH DAKOTA MCKEON ON
--- NOTE | 2018-06-20 15:50 | NUR ---
I have reviewed this patient and I concur with the Shift Assessment completed by the Licensed Practical Nurse today this shift.
[2018-06-20 15:56] VITALS: BP 106/51
--- NOTE | 2018-06-20 19:13 | NUR ---
RECIEVED UP IN BED WITH EYES OPEN. HOB ELEVATED. O2@2 LITERS PER N/C IN PLACE. ORIENTED X4 WITH REPORTED PERIODS OF CONFUSION AT TIMES. IV TO LEFT AC AND HEMOSPLIT TO LEFT CHEST. DSG TO BUTTOCKS AND LEFT FA INTACT. DSG TO LEFT LOWER EXTREMITRY DSG PULLED UP AND WOUND TO LEG IS OPN AND UNSTAGEABLE D/T MACERATION. BED ALARM IN PLACE AND YELLOW GOWN ON. ALSO HAD YELLOW WRIST BAND. DENIES ANY NEEDS AT THIS TIME.
[2018-06-20 20:00] VITALS: BP 114/72
[2018-06-21] VITALS: BP 172/55
[2018-06-21 01:12] VITALS: BP 124/54
[2018-06-21 05:33] LABS: BASOPHILS 0.2 % (0-2); EOSINOPHILS 0.4 % (0-7); HEMATOCRIT 28.8 % (36.0-48.0); HEMOGLOBIN 9.1 g/dL (12-16); IMMATURE GRANULOCYTES 0.2 % (0-5); LYMPHOCYTES 9.7 % (15-50); MCH 29.3 pg (26.0-34.0); MCHC 31.6 g/dL (31.0-37.0); MCV 92.6 fL (80.0-100.0); MEAN PLATELET VOLUME 10.7 fL (7.4-10.4); MONOCYTES 12.5 % (2-11); PLATELET COUNT 293 10x3/uL (130-400); RBC 3.11 10x6/uL (4.00-5.40); RDW 18.4 % (11.5-14.5); WBC 16.2 10x3/uL (4.8-10.8)
[2018-06-21 06:04] LABS: ANION GAP 14.6 mmol/L (8-16); CALCIUM 7.8 mg/dL (8.5-10.1); CARBON DIOXIDE 25.3 mmol/L (21.0-32.0); CREATININE - SERUM 3.7 mg/dL (0.6-1.3); POTASSIUM - SERUM 3.9 mmol/L (3.5-5.1); VANCOMYCIN - RANDOM 21.8 ug/mL (10.0-20.0)
[2018-06-21 08:35] VITALS: BP 126/37
--- NOTE | 2018-06-21 10:48 | NUR ---
DRSG CHANGED TO LEFT LEG. URINE SPECIMEN COLLECTED AND TAKEN TO LAB. WILL CONT. PLAN OF CARE.
[2018-06-21 11:54] VITALS: BP 114/57
[2018-06-21] MEDS ORDERED: VANCOMYCIN 1 GM/1 G1 IV (11:58)
--- NOTE | 2018-06-21 12:24 | NUR ---
REPORT CALLED TO [facility].
[2018-06-21 12:30] LABS: APPEARANCE HAZY (CLEAR); BILIRUBIN NEGATIVE (NEGATIVE); COLOR YELLOW (YELLOW); GLUCOSE NEGATIVE (NEGATIVE); KETONE NEGATIVE (NEGATIVE); NITRITE NEGATIVE (NEGATIVE); PROTEIN 1+ mg/dL (NEGATIVE); UROBILINOGEN NORMAL (NORMAL)
[2018-06-21 12:32] LABS: BACTERIA MANY /hpf (NONE SEEN); WHITE CELLS - URINE 25-50 /hpf (0-5); YEAST >1+ /hpf (NONE SEEN)
--- NOTE | 2018-06-21 13:51 | NUR ---
IV TELEMETRY AND FABIO MURO FOR DC.
--- NOTE | 2018-06-21 14:56 | NUR ---
TRANSFERED TO [facility] BY W/V.
--- NOTE | 2018-06-21 16:27 | MORECARE ---
CASE MANAGEMENT DISCHARGE SUMMARY PATIENT: CANDACE HYDE UNIT: [id number] ADM DATE: 06/17/18 AGE: 68 : 49 SEX: F ROOM/BED: D.4216 AUTHOR: LIUDMILA MORGAN PHYSICIAN: REFERRING PHYSICIAN: DARIO LOZADA MD DATE OF SERVICE: 06/21/18 Discharge Plan Patient Name: CANDACE HYDE Facility: [facility]:[place] : 1950 Planned Disposition: Home Anticipated Discharge Date: 06/19/18 Discharge Date: 06/21/2018 Expected LOS: 2 Initial Reviewer: [email or web address] Initial Review Date: 06/17/2018 Generated: 06/21/18 5:26 pm Comments DCP- Discharge Planning Updated by [email or web address]: Annamaria Penaloza on 06/21/18 3:[address] LATE ENTRY 1230 TC TO THE [facility] [phone]. CM SPOKE WITH MIHAI REGARDING DISCHARGE BACK TO FACILITY TODAY. FAXED DISCHARGE SUMMARY , LABS AND DISCHARGE MED LIST TO [phone]. NURSE TO CALL REPORT. CM SPOKE WITH PRIMARY NURSE, GUY. SHE HAD ALREADY CALLED REPORT. AWAITING CALL BACK WITH PICKUP TIME BY FACILITY VAN. NURSE SPOKE WITH GUY. PATIENT DISCHARGED AT 1455 TO A SKILLED BED. DCP- Discharge Planning Updated by [email or web address]: Davida Vences on 06/17/18 10:[address] Patient Name: CANDACE HYDE Admission Status: ER Accout number: [id number] Admission Date: 06-17-2018 : 1950 Admission Diagnosis: Attending: DARIO LOZADA Current LOS: 1 Anticipated DC Date: 06-19-2018 Planned Disposition: Home Primary Insurance: MEDICARE A & B Discharge Planning Comments: CM met with patient and her daughter Tessa LOU to complete initial dc planning assessment. CM educated patient and Tessa on the CM role and verbal consent given by patient to complete assessment. Patient is currently at [facility] for rehab. She is new to hemodialysis and goes to [facility] on . The [facility] provides her transportation to and from dialysis. Patient's daughter reports that the patient is very weak and is mostly bed/chair bound. Her Dial Buffer is Dr. Christianson. At discharge patient plans to return to the [facility] to complete her rehab and feels this is a safe discharge. Patient denied known discharge needs at this time. CM will continue to follow and will assist as needed with dc plans/needs. Twenty One Dealer: Davida Vences DCPIA - Discharge Planning Initial Assessment Updated by [email or web address]: Davida Vences on 06/17/18 10:59 am * Is the patient Alert and Oriented? Yes * How many steps to enter\exit or inside your home? None * PCP Dr. Lozada * [facility] * Preadmission Environment Long[facility] Facility * Facility Name [facility] * ADLs Partial Dependent * Partial ADLs (Assistance needed) Ambulation Bathing Dressing Medication Management Toileting Transfers * Equipment Wheelchair * Other Equipment At this time patient is chair or bed bound. * List name and contact numbers for known caregivers / representatives who currently or will assist patient after discharge: Tessa hankins - [place] - [phone] * Verbal permission to speak to the caregivers and representatives has been obtained from the patient. Yes * Community resources currently utilized Other * Please name any agencies selected above. Hemodialysis @ [facility] * Additional services required to return to the preadmission environment? No * Can the patient safely return to the preadmission environment? Yes * Has this patient been hospitalized within the prior 30 days at any hospital? Yes Last DP export: 06/17/18 10:07 a Patient Name: CANDACE HYDE Page [phone] at 1627 All edits/amendments must be made on the electronic document DICTATION DATE: 06/21/181625 DIRECTOR INSTRUCTIONAL MATERIAL: BONNIE 06/21/181625 RPT#: [id number] DC DATE:06/21/18 STATUS: DIS IN [facility] [address] [place] [address] END OF REPORT
--- NOTE | 2018-06-23 09:31 | MORECARE ---
CASE MANAGEMENT DISCHARGE SUMMARY PATIENT: CANDACE HYDE UNIT: [id number] ADM DATE: 06/17/18 AGE: 68 : 49 SEX: F ROOM/BED: D.5708 AUTHOR: EDDIE,DOC PHYSICIAN: REFERRING PHYSICIAN: DARIO LOZADA MD DATE OF SERVICE: 06/23/18 Discharge Plan Patient Name: CANDACE HYDE Facility: [facility]:[place] : 1950 Planned Disposition: Long Term Facility Anticipated Discharge Date: 06/22/18 Discharge Date: 06/21/2018 Expected LOS: 5 Initial Reviewer: [email or web address] Initial Review Date: 06/17/2018 Generated: 06/23/18 10:31 am Comments DCP- Discharge Planning Updated by [email or web address]: Afshin Gudino on 06/23/18 8:[address] Patient Name: CANDACE HYDE Admission Status: ER Accout number: [id number] Admission Date: 06-17-2018 : 1950 Admission Diagnosis: Attending: DARIO LOZADA Current LOS: 1 Anticipated DC Date: 06-19-2018 Planned Disposition: Home Primary Insurance: MEDICARE A & B Discharge Planning Comments: CM met with patient and her daughter Tessa LOU to complete initial dc planning assessment. CM educated patient and Tessa on the CM role and verbal consent given by patient to complete assessment. Patient is currently at [facility] for rehab. She is new to hemodialysis and goes to [facility] on . [facility] provides her transportation to and from dialysis. Patient's daughter reports that the patient is very weak and is mostly bed/chair bound. Her Fur Finisher Seamstress is Dr. Christianson. At discharge patient plans to return to the [facility] to complete her rehab and feels this is a safe discharge. Patient denied known discharge needs at this time. CM will continue to follow and will assist as needed with dc plans/needs. Kit Planner: Davida Vences DCP- Discharge Planning Updated by [email or web address]: Annamaria Penaloza on 06/21/18 3:[address] LATE ENTRY 1230 TC TO THE [facility] [phone]. CM SPOKE WITH MIHAI REGARDING DISCHARGE BACK TO FACILITY TODAY. FAXED DISCHARGE SUMMARY , LABS AND DISCHARGE MED LIST TO [phone]. NURSE TO CALL REPORT. CM SPOKE WITH PRIMARY NURSE, GUY. SHE HAD ALREADY CALLED REPORT. AWAITING CALL BACK WITH PICKUP TIME BY FACILITY VAN. NURSE SPOKE WITH GUY. PATIENT DISCHARGED AT 1455 TO A SKILLED BED. DCPIA - Discharge Planning Initial Assessment Updated by [email or web address]: Davida Vences on 06/17/18 10:59 am * Is the patient Alert and Oriented? Yes * How many steps to enter\exit or inside your home? None * PCP Dr. Lozada * Pharmacy [facility] * Preadmission Environment Long Term Facility * Facility Name [facility] * ADLs Partial Dependent * Partial ADLs (Assistance needed) Ambulation Bathing Dressing Medication Management Toileting Transfers * Equipment Wheelchair * Other Equipment At this time patient is chair or bed bound. * List name and contact numbers for known caregivers / representatives who currently or will assist patient after discharge: Tessa Vyas - cr - [employer] - [phone] * Verbal permission to speak to the caregivers and representatives has been obtained from the patient. Yes * Community resources currently utilized Other * Please name any agencies selected above. Hemod[facility] @ [facility] * Additional services required to return to the preadmission environment? No * Can the patient safely return to the preadmission environment? Yes * Has this patient been hospitalized within the prior 30 days at any hospital? Yes Last DP export: 06/21/18 3:26 pm Patient Name: CANDACE HYDE Page [id number] at 0931 All edits/amendments must be made on the electronic document DICTATION DATE: 06/23/18929 SURVEYOR GEODETIC: BONNIE 06/23/18929 RPT#: [id number] DC DATE:06/21/18 STATUS: DIS IN [facility] [address] [place] [address] END OF REPORT
--- NOTE | 2018-06-23 09:38 | MORECARE ---
CASE MANAGEMENT DISCHARGE SUMMARY PATIENT: CANDACE HYDE UNIT: [id number] ADM DATE: 06/17/18 AGE: 68 : 49 SEX: F ROOM/BED: D.1433 AUTHOR: EDDIE,DOC PHYSICIAN: REFERRING PHYSICIAN: DARIO LOZADA MD DATE OF SERVICE: 06/23/18 Discharge Plan Patient Name: CANDACE HYDE Facility: [facility]:[place] : 1950 Planned Disposition: Assisted Facility Anticipated Discharge Date: 06/22/18 Discharge Date: 06/21/2018 Expected LOS: 5 Initial Reviewer: [email or web address] Initial Review Date: 06/17/2018 Generated: 06/23/18 10:38 am Comments DCP- Discharge Planning Updated by [email or web address]: Afshin Gudino on 06/23/18 8:[address] Patient Name: CANDACE HYDE Admission Status: ER Accout number: [id number] Admission Date: 06-17-2018 : 1950 Admission Diagnosis: Attending: DARIO LOZADA Current LOS: 1 Anticipated DC Date: 06-19-2018 Planned Disposition: Home Primary Insurance: MEDICARE A & B Discharge Planning Comments: CM met with patient and her daughter Tessa LOU to complete initial dc planning assessment. CM educated patient and Tessa on the CM role and verbal consent given by patient to complete assessment. Patient is currently at [facility] for rehab. She is new to hemodialysis and goes to [facility] on . The [facility] provides her transportation to and from dialysis. Patient's daughter reports that the patient is very weak and is mostly bed/chair bound. Her Acquisitions Assistant is Dr. Christianson. At discharge patient plans to return to the [facility] to complete her rehab and feels this is a safe discharge. Patient denied known discharge needs at this time. CM will continue to follow and will assist as needed with dc plans/needs. Hunting Sales Leader: Davida Vences DCP- Discharge Planning Updated by [email or web address]: Annamaria Penaloza on 06/21/18 3:[address] LATE ENTRY 1230 TC TO THE [facility] [phone]. CM SPOKE WITH MIHAI REGARDING DISCHARGE BACK TO FACILITY TODAY. FAXED DISCHARGE SUMMARY , LABS AND DISCHARGE MED LIST TO [phone]. NURSE TO CALL REPORT. CM SPOKE WITH PRIMARY NURSE, GUY. SHE HAD ALREADY CALLED REPORT. AWAITING CALL BACK WITH PICKUP TIME BY FACILITY [facility]AN. NURSE SPOKE WITH GUY. PATIENT DISCHARGED AT 1455 TO A SKILLED BED. DCPIA - Discharge Planning Initial Assessment Updated by [email or web address]: Davida Vences on 06/17/18 10:59 am * Is the patient Alert and Oriented? Yes * How many steps to enter\exit or inside your home? None * PCP Dr. Lozada * Pharmacy [facility] * Preadmission Environment Assisted Facility * Facility Name [facility] * ADLs Partial Dependent * Partial ADLs (Assistance needed) Ambulation Bathing Dressing Medication Management Toileting Transfers * Equipment Wheelchair * Other Equipment At this time patient is chair or bed bound. * List name and contact numbers for known caregivers / representatives who currently or will assist patient after discharge: Tessa Vyas - cr - [employer] - [phone] * Verbal permission to speak to the caregivers and representatives has been obtained from the patient. Yes * Community resources currently utilized Other * Please name any agencies selected above. Hemodialysis @ [facility] * Additional services required to return to the preadmission environment? No * Can the patient safely return to the preadmission environment? Yes * Has this patient been hospitalized within the prior 30 days at any hospital? Yes Last DP export: 06/21/18 3:26 pm Patient Name: CANDACE HYDE Page [id number] at 0938 All edits/amendments must be made on the electronic document DICTATION DATE: 06/23/18936 A OPERATOR: BONNIE 06/23/18936 RPT#: [id number] DC DATE:06/21/18 STATUS: DIS IN [facility] [address] [place] [address] END OF REPORT
== END 2018-06-21 14:56 | DRG 291 ==
LOC: D.ER 06:42 → D.M2 08:25 → D.EDHOLD 08:25 → D.M2 10:44
PROVIDERS: Family Medicine; Internal Medicine Nephrology; ADMIT Family Medicine; ATTEND Family Medicine
DX: I13.2 Hypertensive heart and chronic kidney disease with heart failure and with stage 5 chronic kidney disease, or end stage renal disease (principal); I50.23 Acute on chronic systolic (congestive) heart failure; N18.6 End stage renal disease; J18.9 Pneumonia, unspecified organism; G93.41 Metabolic encephalopathy; E87.1 Hypo-osmolality and hyponatremia; E11.22 Type 2 diabetes mellitus with diabetic chronic kidney disease; D63.8 Anemia in other chronic diseases classified elsewhere; R74.8 Abnormal levels of other serum enzymes; E78.5 Hyperlipidemia, unspecified; I25.10 Atherosclerotic heart disease of native coronary artery without angina pectoris; I48.91 Unspecified atrial fibrillation; Z95.0 Presence of cardiac pacemaker